=== PATIENT | male | born 1950 | race Caucasian/White ===

== ENCOUNTER 2016-06-28 13:40 | Inpatient (IN) | payer MEDICARE, OTHER ==
[2016-06-28] MEDS ORDERED: ALBUTEROL SULFATE/IPRATROPIUM 3 ML NEBU IH ONE ×2 (14:04→14:07)
[2016-06-28 14:05] LABS: Hematocrit 46.2 % (42.0-52.0); Hemoglobin 14.6 gm/dL (13.5-18.0); Mean Cell Volume 89.5 fl (78-100); Mean Corpuscular Hemoglobin 28.3 pg (27-31); Mean Corpuscular Hgb Conc 31.6 g/dl (32-36); Mean Platelet Volume 10.3 fl (6.0-9.5); Neutrophil % 68.6 % (42-75.0); Platelet Count 251 K/mm3 (150-450); Red Blood Count 5.16 M/mm3 (4.7-6.0); Red Cell Distribution Width 14.7 % (11.5-14.0); White Blood Count 11.6 K/mm3 (4.0-10.5)
--- OUTSIDE RECORDS SUMMARY | 2016-06-28 14:13 | XMS REPORT | Continuity of Care Document ---
:1950 Author Organization [facility] ([facility]) Address [address] [place] [address] Phone [phone] Care Team Providers Name Role Lisa Vazquez Primary Care Provider [phone] Source Comments This disclosure is being made pursuant to the Care Everywhere program, applicable federal and state laws, and may not contain all informaitonavailable regarding this patient.[facility] ([facility]) Active Allergies and Adverse Reactions Allergen Noted Date Severity Reactions Comments Aspirin 11/04/2012 Urticaria (Hives) Prednisone 07/15/2015 Mental status changes Patient reports he "gets mean " when taking tapered dose. Current Medications Prescription Sig. Disp. Refills Start Date End Date Status ALPRAZolam 0.25 mg Take 0.25 mg by Active tablet mouth 3 times daily as needed . ranitidine 150 mg Take 150 mg by Active tablet mouth daily . albuterol 90 Use 2 Puffs by Active mcg/Actuation inhaler inhalation every 4 hours as needed. fexofenadine 180 mg Take 180 mg by Active tablet mouth daily. clopidogrel 75 mg Take 75 mg by Active tablet mouth daily. losartan 100 mg Take 100 mg by Active tablet mouth daily. carvedilol 25 mg Take 25 mg by Active tablet mouth 2 times daily . budesonide 0.5 mg/2 Use 0.5 mg by Active mL nebulizer inhalation 2 times suspension daily. arformoterol Use 15 mcg by Active (BROVANA) 15 mcg/2 mL inhalation 2 times inhalation solution daily. calcium carbonate Take 1,000 mg by Active (500 mg Ca) 1250 mg mouth daily. tablet docusate 100 mg Take 1 capsule 60 capsule 0 07/24/2015 Active capsule (100 mg total) by mouth 2 times daily. polyethylene glycol Take 17 g by mouth 30 Each 0 07/24/2015 Active 3350 17 gram packet daily. 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 Acute pain 11/08/2012 Hematoma 11/08/2012 Lower limb ischemia 11/05/2012 Leg pain 11/04/2012 Resolved Problems Problem Noted Date Resolved Date PAMELA (acute kidney injury) 07/24/2015 07/24/2015 Immunizations Name Dates Previously Given Next Due Pneumococcal Polysaccharide, PPSV23 (Pneumovax 23) 11/08/2012 Social History Tobacco Use Types Packs/Day Years Used Date Former Smoker Cigarettes 2 35 Quit: 08/03/2009 Alcohol Use Drinks/Week oz/Week Comments No Last Filed Vital Signs Vital Sign Reading Time Taken Blood Pressure 155/81 07/24/2015 8:00 AM CDT Pulse 72 07/24/2015 8:00 AM CDT Temperature 35.2 C (95.4 F) 07/24/2015 8:00 AM CDT Respiratory Rate 20 07/24/2015 8:00 AM CDT Height 1.676 m (5' 5.98") 07/15/2015 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 Weight 117.935 kg (260 lb) 07/15/2015 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 Body Mass Index 41.99 07/15/2015 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 Oxygen Saturation 95% 07/24/2015 12:00 PM CDT Plan of Care Date Type Specialty Providers Description 08/27/2016 Wait List Med GI/Hepatology 08/27/2016 Appointment Med GI/Hepatology Josseline Meza MD Chief Comp: Patient [address] [place] [address] Visit [phone] (Fax) Health Maintenance Due Date Last Done Comments HCV Screening 1950 Hepatitis B Vaccine (1 of 3 - Primary Series) 1950 Tdap Vaccine 1962 Lipid Disorder Screening 1969 Td Vaccine 1969 Prostate Cancer Screening 2001 Zoster Vaccine 2011 Influenza Vaccine: Seasonal (#1) 12/10/2015 Pneumococcal Vaccine (1 of 2 - PCV13) 2016 11/08/2012 Colonoscopy 08/13/2025 08/14/2015 Results from Last 3 Months Not on file
--- OUTSIDE RECORDS SUMMARY | 2016-06-28 14:13 | XMS REPORT | CCD ---
:1950 Author Name HENRRY CAMPOS Address [address] [facility] Unavailable [place], [place] [id number] Care Team Providers Name Role Phone BALTAZAR ANN Attending Physician Unavailable Vital Signs Unknown or Not Available. Allergies Unknown or Not Available. Procedures Unknown or Not Available. History of Immunizations Unknown or Not Available. Problems Unknown or Not Available. Results Unknown or Not Available. Active Medications Unknown or Not Available. Medications Administered During Visit Unknown or Not Available. Encounters Encounter Diagnosis Diagnosis Code Start Date Unspecified abdominal pain R109 07/15/2015 Social History Smoking Status Code Start Date End Date Unknown if ever smoked [id number] Patient Decision Aids Unknown or Not Available. Discharge Instructions You were admitted to [facility] on 07/15/2015 03:39 with a principal diagnosis of Unspecified abdominal pain You were discharged from [facility] on 07/15/2015 03:39 Should you have any questions prior to discharge, please contact a member of your healthcare team. If you have left the hospital and have any questions, please contact your primary care physician. Chief Complaint and Reason For Visit Unknown or Not Available. Function Status Unknown or Not Available. Plan of Care Unknown or Not Available. Referral/Transition of Care Unknown or Not Available.
[2016-06-28 14:17] LABS: Albumin * 3.4 gm/dl (3.4-5.0); Anion Gap 10.7 mmol/L (6.8-13.8); BUN/Creatinine Ratio 15.3 (9.0-21.6); Bilirubin, Total 0.2 mg/dL (0.0-1.1); Ca. Corrected For Albumin 9.1 mg/dL (8.4-10.2); Calcium * 8.9 mg/dL (7.9-10.9); Carbon Dioxide 30.6 mmol/L (24-32.6); Potassium 4.3 mmol/L (3.4-4.6); Total Protein 6.8 gm/dL (6.2-8.2)
[2016-06-28] MEDS ORDERED: METHYLPREDNISOLONE SOD SUCC/PF 40 MG/ML VIAL IM ONE (14:29)
[2016-06-28] MEDS ORDERED: METHYLPREDNISOLONE SOD SUCC/PF 125 MG/2 ML VIAL ONE (14:32)
--- NOTE | 2016-06-28 15:53 | ERNOTE ---
Dyspnea - Date Date of Service: 06/28/16 - General Presenting Symptoms: shortness of breath, difficulty of breathing Time Seen by Provider: 06/28/16 13:58 Source: patient Exam Limitations: no limitations - Immun/Allergies/Home Medications Immunizations: IMMUNIZATION HX Immunizations Up to Date Yes History of Influenza Vaccine Yes Hx Pneumococcal Vaccination Yes Allergies/Adverse Reactions: Allergies aspirin Allergy (Mild, Verified 06/28/16 13:48) Hives Home Medications: HOME MEDICATIONS Albuterol Sulfate/Ipratropium [Duoneb 2.5-0.5MG/3ML Soln] 3 ml IH QID 07/05/15 [ Last Taken Unknown] Arformoterol Tartrate [Brovana] 15 mcg IH BID 07/05/15 [Last Taken Unknown] Budesonide [Pulmicort Respules] 0.5 mg IH BID 07/05/15 [Last Taken Unknown] Carvedilol [Coreg] 25 mg PO BID 07/05/15 [Last Taken Unknown] Clopidogrel Bisulfate [Plavix] 75 mg PO DAILY 07/05/15 [Last Taken Unknown] Losartan Potassium [Cozaar] 100 mg PO DAILY 07/05/15 [Last Taken Unknown] Ranitidine HCl [Zantac] 150 mg PO BID 07/05/15 [Last Taken Unknown] ALPRAZolam [Xanax] 0.25 mg PO BID PRN 04/04/16 [Last Taken Unknown] Montelukast Sodium [Singulair] 10 mg PO DAILY 04/04/16 [Last Taken Unknown] - Pain Score Pain Score #1 Pain Score: 0 - History of Present Illness Narrative: Patient is a 66 year old male with known history of COPD who wears continuous oxygen at night only who presents to the ED with complaints of worsening cough and inability to "get breathing under control with use of oxygen and nebulizers after my coughing fit". Patient denies fever, chills, body aches or change in sputum amount or characteristics yet states has increased cough. States that he came to ED because his coughing fits causes great dyspnea and normally he can control the dyspnea with oxygen and nebulizers but today cannot. Date (Duration): 06/28/16 Severity: moderate Treatment DIRECTOR INTEGRATED: by patient, oxygen, albuterol Initiating event: Reports: other - coughing spells Frequency of episodes: Reports: chronic episodes Modifying Factors - (Improves): Reports: albuterol, oxygen Modifying Factors (Worsens): Reports: coughing Associated Symptoms-Dyspnea: Reports: cough, dizziness. Denies: fever/chills, sweating, chest pain/discomfort, palpitations, wheezing Review of Systems - Review of Systems Constitutional: Absent: recent illness, fever, chills, diaphoresis, weakness, fatigue, malaise, weight loss EYE: Absent: eye pain, eye discharge, blurred vision, double vision, vision changes ENT: Absent: ear pain, ear discharge, pulling on ears, nose pain, nose congestion, nasal drainage, sore throat, throat swelling Respiratory: Present: shortness of breath, cough. Absent: wheezing, stridor Cardiology: Absent: chest pain, palpitations, syncope Gastrointestinal/Abdominal: Absent: nausea, vomiting, diarrhea, constipation, abdominal pain Genitourinary: Present: no symptoms reported Musculoskeletal: Present: no symptoms reported Skin: Present: no symptoms reported. Absent: rash, dryness Neurological: Absent: anxiety, depressed Endocrine: Present: no symptoms reported Hematologic/Lymphatic: Present: no symptoms reported Psych: Present: no symptoms reported - Patient's Past Medical History Patient History - Medical: Anxiety, Arthritis, Chronic Pain, GERD, Headache, Osteoporosis Patient History - Cardiac/Respiratory: Asthma, COPD, Hypertension, Hyperlipidemia Patient History - Cancer: No Hx of Cancer Patient History - Surgical Procedures: Appendectomy, Colonoscopy Patient History - Other: None - Family History Mother Family History - Medical: No pertinent hx Family History - Cardiac/Respiratory: No pertinent hx Father Family History - Medical: , Alzheimer's Disease Family History - Cardiac/Respiratory: No pertinent hx - Social History Living Situations: spouse Abuse History: No History of abuse Psych History: Hx of Anxiety Does anyone smoke in the home?: Yes Alcohol Use: none Drug Use: none - Immunizations Immunizations Up to Date: Yes Hx Pneumococcal Vaccination: Yes History of Influenza Vaccine: Yes Physical Exam - Physical Exam General Appearance: Present: wd/wn, alert, mild distress, obese. Absent: anxious, lethargic Eye Exam: Normal inspection: bilateral, PERRL: bilateral Ears, Nose, Throat: Present: normal ENT inspection, hearing grossly normal, normal pharynx. Absent: pharyngeal erythema, pharyngeal swelling, tonsillar exudate, tonsillar swelling, dry mucous membranes Neck: Present: normal inspection, nontender, supple, full range of motion Respiratory: Present: no accessory muscle use, accessory muscle use, decreased breath sounds. Absent: crackles, rales, rhonchi, stridor, wheezing Cardiovascular/Chest: Present: regular rate, rhythm, no murmur, normal peripheral pulses Peripheral Pulses: N=norm/S=strong/W=weak/B=bound/A=absent: Radial (R): Normal, Radial (L): Normal Gastrointestinal/Abdominal: Present: normal bowel sounds, nontender, nondistended, soft Rectal Exam: Present: deferred Male Genitals Exam: Present: deferred Back Exam: Present: normal inspection, normal range of motion, no CVA tenderness , no vertebral tenderness Extremity Exam: Present: normal inspection, non-tender, no edema, normal range of motion Neurological Exam: Present: alert, oriented, normal mood/affect, no motor/ sensory deficits Skin Exam: Present: normal color, warm/dry Lymphatic Exam: Present: no adenopathy ED Progress - Results and Orders Patient's Lab Results:: I have reviewed the patient's lab results. - Vital Signs Patient's Vital Signs:: I have reviewed the patient's vital signs. Vital Signs: Vital Signs 06/28/16 06/28/16 06/28/16 13:45 14:08 14:41 Temperature 36.6 C Pulse Rate 97 98 96 Respiratory 14 24 H Rate O2 Sat by Pulse 95 92 95 Oximetry 06/28/16 15:40 Temperature Pulse Rate 99 Respiratory 20 Rate O2 Sat by Pulse 96 Oximetry - X-Ray X-Ray #1 X-Ray: chest Interpretation: Reviewed by me X-ray Comments: No acute findings, hyperinflated lungs, enlarged heart with flat diaphragm - Progress/Reassessment Chief Complaint: Dyspnea Progress:: Improved Progress Note-Subjective: 06/28/16 16:54 RN Apoorva attempted to ambulate patient off oxygen. Per RN, patient was able to walk approximately 20 feet with worsening dyspnea and tachypnea. Respirations increased to 40-45/min and saturations 89-90%. Dr Live contacted and case discussed with him. Agreed to accept admission approximately 1630. Departure Clinical Impression: COPD exacerbation, Acute exacerbation of chronic obstructive pulmonary disease (COPD) - Departure Disposition: [facility] Condition: Stable
[2016-06-28] MEDS ORDERED: LEVOFLOXACIN/D5W 750 MG/150 ML BAG IV SCH (16:15)
[2016-06-28] MEDS ORDERED: ALBUTEROL SULFATE 2.5 MG/0.5 ML VIAL.NEB IH ONE ×2 (16:15→16:42)
[2016-06-28] MEDS ORDERED: AZITHROMYCIN 250 MG TABLET ONE (16:45)
--- OUTSIDE RECORDS SUMMARY | 2016-06-28 16:58 | XMS REPORT | Continuity of Care Document ---
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
[2016-06-28] MEDS ORDERED: ALBUTEROL SULFATE/IPRATROPIUM 3 ML NEBU IH SCH (17:00)
[2016-06-28] MEDS ORDERED: ACETAMINOPHEN 325 MG TABLET PO PRN (17:01)
[2016-06-28] MEDS ORDERED: AZITHROMYCIN 500 MG in DEXTROSE 5 % IN WATER 250 ML IV ONE ×2 (17:30)
[2016-06-28 17:50] LABS: CKMB 5.9 ng/mL (0.0-9.0)
[2016-06-28 17:59] LABS: Troponin I 0.021 ng/ml (0.00-0.10)
--- NOTE | 2016-06-28 18:04 | HP ---
Chief Complaint - Chief Complaint Date of Service: 06/28/16 Time of Service: 18:02 Chief Complaint: SOB, PANDYA, productive cough. 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 He was actually seen at [facility] ER and was "borderline" for admission, received steroid shot there and sent home to do nebs at home, but continued to worsen so came to our ER as he lives in town here. He denies any significant chest pressure, but does describe substernal chest pressure and a very productive cough, that makes his chest hurt when he coughs. He complains of a bad, migraine like, [place] when he coughs, but denies fevers or chills, sore throat or other upper respiratory sx. He has chronic LE edema, no recent changes and no complaint of leg pain. In the ER he was noted to be tachypneic, very PANDYA and unable to finish a sentence, using accessory muscles to breath. Ambulatory O2 dropped to 89% and unable to walk more than a few feet before gasping for air. At rest he was ok, but still unable to finish a sentence. He does wear O2 at night 1-2LNC, but not during the day. He has been tested for HEBER and told he doesn't have it. - Patient's Past Medical History Patient History - Medical: Anxiety, Arthritis, Chronic Pain, GERD, Headache, Osteoporosis Patient History - Cardiac/Respiratory: Asthma, COPD, Hypertension, Hyperlipidemia Patient History - Cancer: No Hx of Cancer Patient History - Surgical Procedures: Appendectomy, Colonoscopy Patient History - Other: None - Family History Mother Family History - Medical: No pertinent hx Family History - Cardiac/Respiratory: No pertinent hx Father Family History - Medical: , Alzheimer's Disease Family History - Cardiac/Respiratory: No pertinent hx - Social History Living Situations: spouse Abuse History: No History of abuse Psych History: Hx of Anxiety Does anyone smoke in the home?: Yes Smoking Status: Former smoker Have you smoked in the past 12 months: No Do you dip or chew tobacco: No Smoking Start Date: 05/11/64 Smoking Stop Date: 05/11/10 Patient requests Smoking Cessation Consult: No Alcohol Use: none Drug Use: none - Immunizations Immunizations Up to Date: Yes Hx Pneumococcal Vaccination: Yes History of Influenza Vaccine: Yes Review Of Systems (GEN) - Review of Systems Generalized/Overall Review: Present: Weakness, Malaise, Fatigue. Absent: Chills , Fever EENTM: Present: No Symptoms Reported Respiratory: Present: Cough, Shortness of Breath, Wheezing. Absent: Orthopnea Cardiac: Present: Chest Pain, Edema - chronic, no recent changes.. Absent: Palpitations Abdominal: Present: No Symptoms Reported Genitourinary: Present: No Symptoms Reported Musculoskeletal: Present: No Symptoms Reported Neurological: Present: No Symptoms Reported Skin: Present: No Symptoms Reported Endocrine: Present: No Symptoms Reported Immunizations: IMMUNIZATION HX Immunizations Up to Date Yes History of Influenza Vaccine Yes Hx Pneumococcal Vaccination Yes Allergies/Adverse Reactions: Allergies Allergy/AdvReac Type Severity Reaction Status Date / Time aspirin Allergy Mild Hives Verified 06/28/16 13:48 Home Medications: HOME MEDICATIONS Albuterol Sulfate/Ipratropium [Duoneb 2.5-0.5MG/3ML Soln] 3 ml IH QID 07/05/15 [ Last Taken Unknown] Arformoterol Tartrate [Brovana] 15 mcg IH BID 07/05/15 [Last Taken Unknown] Budesonide [Pulmicort Respules] 0.5 mg IH BID 07/05/15 [Last Taken Unknown] Carvedilol [Coreg] 25 mg PO BID 07/05/15 [Last Taken Unknown] Clopidogrel Bisulfate [Plavix] 75 mg PO DAILY 07/05/15 [Last Taken Unknown] Losartan Potassium [Cozaar] 100 mg PO DAILY 07/05/15 [Last Taken Unknown] Ranitidine HCl [Zantac] 150 mg PO BID 07/05/15 [Last Taken Unknown] ALPRAZolam [Xanax] 0.25 mg PO BID PRN 04/04/16 [Last Taken Unknown] Montelukast Sodium [Singulair] 10 mg PO DAILY 04/04/16 [Last Taken Unknown] Exam - Exam Vital Signs: Vital Signs - Last Taken Temp 36.6 C 06/28/16 13:45 Pulse 97 06/28/16 16:59 Resp 16 06/28/16 16:59 BP 191/102 06/28/16 16:59 Pulse Ox 96 06/28/16 16:59 Constitutional: Present: Alert, Oriented x3, Cooperative, Mild distress, Moderate distress, Other - unable to finish a sentence without a breath., Morbidly obese ENT Exam: Present: hearing grossly normal Eye Exam: bilateral eye: normal inspection, PERRL, EOMI Neck: Present: supple Respiratory: Present: accessory muscle use, wheezing, expiration (prolonged), other - very poor AE, E>>I, very end expiratory wheezes.. Absent: rales Cardiovascular/Chest: Present: no murmur, tachycardia Abdomen: Present: Normal bowel sounds, soft, nontender, obese /Rectal: Present: Exam deferred Extremity: Present: no calf tenderness, lower extremity edema - equal manda, no cords Skin Exam: Present: normal color Neurologic: Present: normal mood/affect, oriented x 3 Appearance: Present: appropriate appearance, appropriate insight, no memory impairment Eye contact: Present: cooperative, good eye contact Thoughts: Present: normal thought pattern, no apparent hallucination Diagnostic Studies: Laboratory Results WBC 11.6 K/mm3 (4.0-10.5) H 06/28/16 13:57 RBC 5.16 M/mm3 (4.7-6.0) 06/28/16 13:57 Hgb 14.6 gm/dL (13.5-18.0) 06/28/16 13:57 Hct 46.2 % (42.0-52.0) 06/28/16 13:57 MCV 89.5 fl (78-100) 06/28/16 13:57 MCH 28.3 pg (27-31) 06/28/16 13:57 MCHC 31.6 g/dl (32-36) L 06/28/16 13:57 RDW 14.7 % (11.5-14.0) H 06/28/16 13:57 Plt Count 251 K/mm3 (150-450) 06/28/16 13:57 MPV 10.3 fl (6.0-9.5) H 06/28/16 13:57 Immature Gran % (Auto) 0.80 % (0.001-0.429) H 06/28/16 13:57 Immature Gran # (Auto) 0.09 K/mm3 (0.000-0.0310) H 06/28/16 13:57 Neutrophils % 68.6 % (42-75.0) 06/28/16 13:57 Lymphocytes % 18.4 % (20-51) L 06/28/16 13:57 Monocytes % 9.8 % (0.0-9) H 06/28/16 13:57 Eosinophils % 2.0 % (0.0-3.0) 06/28/16 13:57 Basophils % 0.4 % (0.0-1.0) 06/28/16 13:57 Nucleated RBC % 0.0 k/mm3 (0-1) 06/28/16 13:57 Neutrophils # 8.0 K/mm3 (1.3-6.0) H 06/28/16 13:57 Lymphocytes # 2.1 k/mm3 (1.5-3.5) 06/28/16 13:57 Monocytes # 1.1 k/mm3 (0.0-1.0) H 06/28/16 13:57 Eosinophils # 0.2 k/mm3 (0.0-0.7) 06/28/16 13:57 Absolute Basophils 0.1 k/mm3 (0.0-0.1) 06/28/16 13:57 pCO2 40.6 mmHg (35.0-48.0) 06/28/16 15:06 pO2 34.9 mmHg (83.0-108.0) L* 06/28/16 15:06 HCO3 23.2 mmol/L (21.0-28.0) 06/28/16 15:06 Total CO2 24.4 mmol/L (19.0-24.0) H 06/28/16 15:06 Base Excess -1.9 mmol/L (-2.0-3.0) 06/28/16 15:06 ABG pH 7.37 (7.35-7.45) 06/28/16 15:06 ABG O2 Sat (Measured) 65.6 % (94.0-98.0) L 06/28/16 15:06 Sodium 141 mmol/L (132-142) 06/28/16 13:57 Plasma Sodium 141 mmol/L (130-142) 06/28/16 13:57 Potassium 4.3 mmol/L (3.4-4.6) 06/28/16 13:57 Chloride 104 mmol/L (97-106) 06/28/16 13:57 Carbon Dioxide 30.6 mmol/L (24-32.6) 06/28/16 13:57 Anion Gap 10.7 mmol/L (6.8-13.8) 06/28/16 13:57 BUN 17 mg/dL (6-23) 06/28/16 13:57 Creatinine 1.11 mg/dL (0.4-1.4) 06/28/16 13:57 Est GFR (Non-Af Amer) 71 mL/min (60-130) 06/28/16 13:57 BUN/Creatinine Ratio 15.3 (9.0-21.6) 06/28/16 13:57 Random Glucose 88 mg/dL (70-110) 06/28/16 13:57 Lactic Acid, Venous 0.9 mmol/L (0.4-2.0) 06/28/16 13:57 Calcium 8.9 mg/dL (7.9-10.9) 06/28/16 13:57 Calcium Adj for Albumin 9.1 mg/dL (8.4-10.2) 06/28/16 13:57 Total Bilirubin 0.2 mg/dL (0.0-1.1) 06/28/16 13:57 AST 19 U/L (0-48) 06/28/16 13:57 ALT 35 U/L (19-67) 06/28/16 13:57 Alkaline Phosphatase 40 U/L (50-170) L 06/28/16 13:57 Creatine Kinase 362 U/L (0-259) H 06/28/16 16:30 CK-MB (CK-2) 5.9 ng/mL (0.0-9.0) 06/28/16 16:30 CK-MB (CK-2) Rel Index 1.6 (0.0-3.6) 06/28/16 16:30 Troponin I 0.021 ng/ml (0.00-0.10) 06/28/16 16:30 Total Protein 6.8 gm/dL (6.2-8.2) 06/28/16 13:57 Albumin 3.4 gm/dl (3.4-5.0) 06/28/16 13:57 Assessment/Plan - Assessment/Plan (1) Hypertension Assessment: BP is very high. could be because he has not slept well for several nights per him, but it is also possible the SOB and elevated BP could be from AMI so will check cardiac panel and EKG. EKG shows some lateral ST depressions, but this could be cardiac strain from the COPD exacerbation. If cardiac panel is normal will repeat in 6 hrs just to be sure it remains ok. Problem: Acute Qualifiers: Hypertension type: essential hypertension Qualified Code(s): I10 - Essential (primary) hypertension (2) Respiratory failure Assessment: acute, though mainly with activity as his sats at rest are in the mid 90's, but if he ambulates he drops to 89% and is very PANDYA. Will continue his nightime O2 and just monitor how he does with ambulation. Blood gas shows extremely low O2 at 65% while on 2 liters, but doubt this number is good given what his present pulse ox shows. Problem: Acute (3) Acute exacerbation of chronic obstructive pulmonary disease (COPD) Assessment: will do scheduled nebs, IV steroids, zithromax and rocephin, changing to cefdinir and a prednisone taper at time of discharge. Problem: Acute (4) Discharge planning issues Assessment: It is possible that patient may be able to go home sometime tomorrow, depending on how he responds to IV steroids and abx. Problem: Acute
[2016-06-28] MEDS: ENOXAPARIN SODIUM 40 MG/0.4 ML SYRG SC SCH (18:17)
[2016-06-28] MEDS: PANTOPRAZOLE SODIUM 40 MG TABLET.EC PO SCH (18:17)
[2016-06-28] MEDS: ALPRAZolam 0.25 MG TABLET PO PRN (19:01)
[2016-06-28] MEDS: ALBUTEROL SULFATE/IPRATROPIUM 3 ML NEBU IH SCH ×2 (19:45→21:13)
[2016-06-28] MEDS: BUDESONIDE 0.5 MG/2 ML VIAL.NEB IH SCH ×2 (19:46→21:13)
[2016-06-28] MEDS ORDERED: NON-FORMULARY 1 DOSE DOSE (Arformoterol Tartrate [Brovana] 15 MCG) IH SCH (21:00)
[2016-06-28] MEDS ORDERED: RANITIDINE HCL 150 MG PO SCH (21:00)
[2016-06-28] MEDS ORDERED: BUDESONIDE 0.5 MG/2 ML VIAL.NEB IH SCH (21:00)
[2016-06-28] MEDS: FAMOTIDINE 20 MG TABLET PO SCH (21:08)
[2016-06-28] MEDS: CARVEDILOL 25 MG TABLET PO SCH (21:08)
[2016-06-28] MEDS: METHYLPREDNISOLONE SOD SUCC 80 MG in WATER FOR INJ.,BACTERIOSTATIC 0 ML IV SCH (21:22)
[2016-06-28] MEDS: ALBUTEROL SULFATE 2.5 MG/0.5 ML VIAL.NEB IH PRN (23:56)
[2016-06-29] MEDS: ALPRAZolam 0.25 MG TABLET PO PRN ×3 (00:12→16:41)
[2016-06-29] MEDS: FORMOTEROL FUMARATE 20 MCG/2 ML VIAL IH SCH ×3 (00:59→18:12)
[2016-06-29] MEDS: ALBUTEROL SULFATE 2.5 MG/0.5 ML VIAL.NEB IH PRN ×2 (03:22→03:47)
[2016-06-29] MEDS ORDERED: guaiFENesin 100 MG/5 ML BTL PO PRN (03:24)
[2016-06-29] MEDS ORDERED: ACETYLCYSTEINE 100 MG/ML VIAL ONE (03:44)
[2016-06-29] MEDS: ACETYLCYSTEINE 100 MG/ML VIAL IH SCH ×4 (03:46→18:12)
[2016-06-29] MEDS: MORPHINE SULFATE 2 MG/ML DISP.SYRIN IV PRN (04:12)
[2016-06-29] MEDS: METHYLPREDNISOLONE SOD SUCC 80 MG in WATER FOR INJ.,BACTERIOSTATIC 0 ML IV SCH (05:44)
[2016-06-29] MEDS: CLOPIDOGREL BISULFATE 75 MG TABLET PO SCH (08:13)
[2016-06-29] MEDS: MONTELUKAST SODIUM 10 MG TABLET PO SCH (08:14)
[2016-06-29] MEDS: PANTOPRAZOLE SODIUM 40 MG TABLET.EC PO SCH (08:14)
[2016-06-29] MEDS: CARVEDILOL 25 MG TABLET PO SCH ×2 (08:14→21:31)
[2016-06-29] MEDS: FAMOTIDINE 20 MG TABLET PO SCH ×2 (08:14→21:31)
[2016-06-29] MEDS: AZITHROMYCIN 250 MG TABLET PO SCH (08:15)
[2016-06-29] MEDS: LOSARTAN POTASSIUM 50 MG TABLET PO SCH (08:15)
[2016-06-29] MEDS: ALBUTEROL SULFATE/IPRATROPIUM 3 ML NEBU IH SCH ×4 (08:46→18:10)
[2016-06-29] MEDS ORDERED: NON-FORMULARY 1 DOSE DOSE (Losartan Potassium [Cozaar] 100 MG) PO SCH (09:00)
--- NOTE | 2016-06-29 09:10 | PN ---
Subjective - Date and Time Seen Date: 06/29/16 Time: 09:01 Subjective Narrative: Pt. complaining of increased SOB this am. He states that after he received IV steroid last night he felt his hands cramp up and again this am feels more SOB and anxious after dose. He denies leg or calf pain or chest pain, but does complain of it being harder to breath. Objective - Review of Systems Generalized/Overall Review: Reports: Weakness, Fatigue. Denies: Chills, Fever EENTM: Reports: No Symptoms Reported Respiratory: Reports: Cough, Shortness of Breath, Wheezing Cardiac: Denies: Chest Pain, Palpitations Abdominal: Denies: Nausea, Vomiting Genitourinary Symptoms: Reports: No Symptoms Reported Musculoskeletal Complaints: Reports: No Symptoms Reported Neurological: Reports: No Symptoms Reported Skin: Reports: No Symptoms Reported Endocrine: Reports: No Symptoms Reported - Vitals Vitals: Last Vital Signs Temp 36.4 C L 06/29/16 06:38 Pulse 104 H 06/29/16 08:46 Resp 28 H 06/29/16 08:46 BP 143/103 06/29/16 08:15 Pulse Ox 97 06/29/16 08:46 - Exam Constitutional: Present: Alert, Oriented x3, Cooperative, Moderate distress, Obese ENT Exam: Present: hearing grossly normal Neck: Present: supple Respiratory: Present: respiratory distress, accessory muscle use, rales - right base., rhonchi, wheezing, other - very breathless and hoarse. unable to finish a few words without a breath. On O2 this am and hard to maintain sats in the low 90's on 1LNC. very anxious. Cardiovascular/Chest: Present: regular rate, rhythm, systolic murmur Abdomen: Present: Normal bowel sounds, soft, nontender Extremity: Present: no calf tenderness, pedal edema Skin Exam: Present: normal color Neurologic: Present: normal mood/affect, oriented x 3 Appearance: Present: appropriate appearance, appropriate insight, neat Eye contact: Present: cooperative, good eye contact, normal speech Thoughts: Present: normal thought pattern, no apparent hallucination Assessment/Plan - Problems/Diagnosis (1) Hypertension Problem: Acute Qualifiers: Hypertension type: essential hypertension Qualified Code(s): I10 - Essential (primary) hypertension Narrative: stable, no changes (2) Respiratory failure Problem: Acute Narrative: back on O2 this am. could be developing pneumonia given the rales in the right base vs. worsening COPD. continue O2 as needed. tx copd. (3) Acute exacerbation of chronic obstructive pulmonary disease (COPD) Problem: Acute Narrative: appears to be worse this am despite tx. could be reaction to the solumedrol so will change to dexamethasone. continue scheduled duoneb, prn albuterol and continue mucomyst and abx. (4) Discharge planning issues Problem: Acute Narrative: pt. is definitely not ready for discharge this am, showing signs of worsening and in a great deal of respiratory distress.
[2016-06-29] MEDS: BUDESONIDE 0.5 MG/2 ML VIAL.NEB IH SCH ×2 (09:21→18:11)
[2016-06-29] MEDS: DEXAMETHASONE 4 MG TABLET PO SCH ×2 (10:32→21:30)
[2016-06-29] MEDS: ENOXAPARIN SODIUM 40 MG/0.4 ML SYRG SC SCH (17:24)
[2016-06-30] MEDS: ALBUTEROL SULFATE 2.5 MG/0.5 ML VIAL.NEB IH PRN ×2 (00:03→04:04)
[2016-06-30] MEDS: ACETYLCYSTEINE 100 MG/ML VIAL IH SCH ×4 (00:03→18:18)
[2016-06-30] MEDS: ALPRAZolam 0.25 MG TABLET PO PRN ×3 (00:19→19:24)
[2016-06-30] MEDS: MORPHINE SULFATE 2 MG/ML DISP.SYRIN IV PRN ×2 (04:00→20:32)
[2016-06-30] MEDS: BUDESONIDE 0.5 MG/2 ML VIAL.NEB IH SCH ×3 (06:04→18:16)
[2016-06-30] MEDS: ALBUTEROL SULFATE/IPRATROPIUM 3 ML NEBU IH SCH ×4 (06:05→18:13)
[2016-06-30] MEDS: FORMOTEROL FUMARATE 20 MCG/2 ML VIAL IH SCH ×3 (06:05→18:14)
--- NOTE | 2016-06-30 06:34 | PN ---
Progess Note - Interim Narrative: 06/30/16 06:31 Pt. feels very SOB this am, usually requires 1LNC at night to breath but needed 2 liters last night. He was off O2 and 96% last pm. He is quite anxious this am and not sure if he should go home or not yet. He states the decadron did not give him the SE the solumedrol did. PE: He is quite anxious this am, with mild respiratory distress. He has fair AE manda, still with EEW and E>I and using some accessory muscles to breath. A/P: COPD exacerbation: better but not sure if ready to go home or not. Will reassess during the day and decide later today whether to d/c or not.
[2016-06-30] MEDS: DEXAMETHASONE 4 MG TABLET PO SCH ×2 (08:42→20:41)
[2016-06-30] MEDS: LOSARTAN POTASSIUM 50 MG TABLET PO SCH (08:42)
[2016-06-30] MEDS: CARVEDILOL 25 MG TABLET PO SCH ×2 (08:42→20:40)
[2016-06-30] MEDS: CLOPIDOGREL BISULFATE 75 MG TABLET PO SCH (08:43)
[2016-06-30] MEDS: FAMOTIDINE 20 MG TABLET PO SCH ×2 (08:43→20:41)
[2016-06-30] MEDS: AZITHROMYCIN 250 MG TABLET PO SCH (08:43)
[2016-06-30] MEDS: MONTELUKAST SODIUM 10 MG TABLET PO SCH (08:43)
[2016-06-30] MEDS: PANTOPRAZOLE SODIUM 40 MG TABLET.EC PO SCH (08:43)
[2016-06-30] MEDS: ENOXAPARIN SODIUM 40 MG/0.4 ML SYRG SC SCH (17:08)
--- NOTE | 2016-06-30 19:33 | PN ---
Subjective - Date and Time Seen Date: 06/30/16 Time: 19:23 Subjective Narrative: Pt. continues to have SOB/PANDYA, feeling better, but doesn't feel like he can safely go home. He did walk 250ft. today but states was very PANDYA. Objective - Review of Systems Generalized/Overall Review: Reports: Weakness, Malaise. Denies: Chills, Fever EENTM: Reports: No Symptoms Reported Respiratory: Reports: Shortness of Breath, Wheezing, Other - PANDYA Cardiac: Reports: Chest Pain Abdominal: Reports: No Symptoms Reported Genitourinary Symptoms: Reports: No Symptoms Reported Musculoskeletal Complaints: Reports: No Symptoms Reported Neurological: Reports: No Symptoms Reported Skin: Reports: No Symptoms Reported Endocrine: Reports: No Symptoms Reported - Vitals Vitals: Last Vital Signs Temp 36.7 C 06/30/16 18:59 Pulse 102 H 06/30/16 18:59 Resp 24 H 06/30/16 18:59 BP 196/83 06/30/16 18:59 Pulse Ox 92 06/30/16 18:59 - Exam Constitutional: Present: Alert, Oriented x3, Cooperative, Mild distress, Moderate distress ENT Exam: Present: hearing grossly normal Neck: Present: supple Respiratory: Present: respiratory distress, accessory muscle use, rhonchi, wheezing, expiration (prolonged) Cardiovascular/Chest: Present: regular rate, rhythm, no murmur Abdomen: Present: Normal bowel sounds, soft, nontender, nondistended, no rebound tenderness, no hepatospenomegaly, no masses, obese Extremity: Present: no calf tenderness Skin Exam: Present: normal color Neurologic: Present: normal mood/affect, oriented x 3 Appearance: Present: appropriate appearance, appropriate insight Eye contact: Present: cooperative, good eye contact, other - cannot finish a sentence without taking a breath Thoughts: Present: normal thought pattern, no apparent hallucination Assessment/Plan - Problems/Diagnosis (1) Hypertension Problem: Acute Qualifiers: Hypertension type: essential hypertension Qualified Code(s): I10 - Essential (primary) hypertension Narrative: stable (2) Respiratory failure Problem: Acute Narrative: off O2 during the day, but still respiratory distress with ambulation. (3) Acute exacerbation of chronic obstructive pulmonary disease (COPD) Problem: Acute Narrative: Still very poor AE, E>>I and breathlessness, patient definitely is not ready to go home yet. Will continue current tx. (4) Discharge planning issues Problem: Acute Narrative: Hopefully able to go home tomorrow, but definitely unable to go home today.
[2016-07-01] MEDS: ACETYLCYSTEINE 100 MG/ML VIAL IH SCH ×2 (00:47→06:06)
[2016-07-01] MEDS: ALBUTEROL SULFATE 2.5 MG/0.5 ML VIAL.NEB IH PRN (04:28)
[2016-07-01] MEDS: BUDESONIDE 0.5 MG/2 ML VIAL.NEB IH SCH (06:07)
[2016-07-01] MEDS: FORMOTEROL FUMARATE 20 MCG/2 ML VIAL IH SCH (06:07)
[2016-07-01] MEDS: ALBUTEROL SULFATE/IPRATROPIUM 3 ML NEBU IH SCH ×2 (06:07→11:16)
--- NOTE | 2016-07-01 07:40 | PN ---
Progess Note - Interim Narrative: 07/01/16 07:09 Looking a little better this am. Still very hoarse and some mild respiratory distress, but better AE manda. Will do a trial with revatio and look to discharge later today.
[2016-07-01] MEDS: CARVEDILOL 25 MG TABLET PO SCH (08:58)
[2016-07-01] MEDS: FAMOTIDINE 20 MG TABLET PO SCH (08:58)
[2016-07-01] MEDS: LOSARTAN POTASSIUM 50 MG TABLET PO SCH (08:59)
[2016-07-01] MEDS: CLOPIDOGREL BISULFATE 75 MG TABLET PO SCH (08:59)
[2016-07-01] MEDS: MONTELUKAST SODIUM 10 MG TABLET PO SCH (08:59)
[2016-07-01] MEDS: PANTOPRAZOLE SODIUM 40 MG TABLET.EC PO SCH (09:00)
[2016-07-01] MEDS: AZITHROMYCIN 250 MG TABLET PO SCH (09:00)
[2016-07-01] MEDS: DEXAMETHASONE 4 MG TABLET PO SCH (09:00)
[2016-07-01] MEDS ORDERED: SILDENAFIL CITRATE 20 MG TABLET PO SCH (09:00)
[2016-07-01 11:08] VITALS: BP 139/72
--- NOTE | 2016-07-01 12:01 | DS ---
(1) Hypertension Problem: Acute Qualifiers: Hypertension type: essential hypertension Qualified Code(s): I10 - Essential (primary) hypertension (2) Respiratory failure Problem: Acute (3) Acute exacerbation of chronic obstructive pulmonary disease (COPD) Problem: Acute (4) Discharge planning issues Problem: Acute Description of Stay: Pt. admitted for COPD exacerbation, respiratory distress/failure. He was placed on zithromax, rocephin and solumedrol with QID duoneb and prn albuterol. He was able to wean off the O2 rapidly, but required 2LNC hs when typically he uses 1LNC at home. He had a reaction to solumedrol and has had issues with prednisone in the past so was placed on decadron 8mg po Q8hrs and slowly improved over the next couple days. Because he was still with some mild SOB at rest and PANDYA, I began revatio which he seemed to tolerate so will continue him on this outpt. He will continue his home O2 hs, 1-2 LNC adjusting as tolerated and needed. Zithromax and cefdinir, along with decadron will be Rx'd. And an Rx for revatio will be given. He is to see PCP in 1 wk. Procedures Performed: none Discharge Disposition: Home self care Disposition: Home self-care Condition: Fair Discharge Activity: Activity as tolerated Discharge Diet: General/regular food Consultation Done:: f/u with PCP in 1 wk. Prescriptions (Any new or edited meds): Azithromycin [Zithromax] 250 mg PO DAILY #2 tablet Cefdinir [Omnicef] 300 mg PO Q12H #16 cap Dexamethasone [Decadron] 8 mg PO Q12H #26 tablet Sildenafil Citrate [Revatio] 20 mg PO TID #90 tablet Complete Home Medications List: Complete Home Medication List: Albuterol Sulfate/Ipratropium [Duoneb 2.5-0.5MG/3ML Soln] 3 ml IH QID 07/05/15 Arformoterol Tartrate [Brovana] 15 mcg IH BID 07/05/15 Budesonide [Pulmicort Respules] 0.5 mg IH BID 07/05/15 Carvedilol [Coreg] 25 mg PO BID 07/05/15 Clopidogrel Bisulfate [Plavix] 75 mg PO DAILY 07/05/15 Losartan Potassium [Cozaar] 100 mg PO DAILY 07/05/15 Ranitidine HCl [Zantac] 150 mg PO BID 07/05/15 ALPRAZolam [Xanax] 0.25 mg PO BID PRN 04/04/16 Montelukast Sodium [Singulair] 10 mg PO DAILY 04/04/16 Acetaminophen [Tylenol] 650 mg PO QID PRN #0 tablet 07/01/16 Azithromycin [Zithromax] 250 mg PO DAILY #2 tablet 07/01/16 Cefdinir [Omnicef] 300 mg PO Q12H #16 cap 07/01/16 Dexamethasone [Decadron] 8 mg PO Q12H #26 tablet 07/01/16 Sildenafil Citrate [Revatio] 20 mg PO TID #90 tablet 07/01/16
== END 2016-07-01 12:45 | disposition home or self-care (01) | DRG 189 ==
LOC: ER 13:40 → MS 16:52
PROVIDERS: ADMIT Family Medicine; ATTEND Family Medicine
PROC: 4A033R1 Measurement of Arterial Saturation, Peripheral, Percutaneous Approach (ICD-10-PCS; principal; 2016-06-28)
DX: J96.00 Acute respiratory failure, unspecified whether with hypoxia or hypercapnia (principal); J44.1 Chronic obstructive pulmonary disease with (acute) exacerbation; I10 Essential (primary) hypertension; E78.5 Hyperlipidemia, unspecified; Z87.891 Personal history of nicotine dependence

== ENCOUNTER 2016-07-01 16:27 | Emergency (ER) | payer MEDICARE, OTHER ==
[2016-07-01] MEDS ORDERED: ALBUTEROL SULFATE 2.5 MG/0.5 ML VIAL.NEB IH ONE ×4 (16:31→19:38)
[2016-07-01] MEDS ORDERED: METHYLPREDNISOLONE SOD SUCC/PF 125 MG/2 ML VIAL IV ONE (16:31)
--- NOTE | 2016-07-01 16:33 | ERNOTE ---
Dyspnea - General Presenting Symptoms: shortness of breath Time Seen by Provider: 07/01/16 16:27 Source: patient, family Exam Limitations: no limitations - Immun/Allergies/Home Medications Immunizations: IMMUNIZATION HX Immunizations Up to Date Yes History of Influenza Vaccine Yes Hx Pneumococcal Vaccination Yes Allergies/Adverse Reactions: Allergies aspirin Allergy (Mild, Verified 06/28/16 13:48) Hives Home Medications: HOME MEDICATIONS Albuterol Sulfate/Ipratropium [Duoneb 2.5-0.5MG/3ML Soln] 3 ml IH QID 07/05/15 [ Last Taken Unknown] Arformoterol Tartrate [Brovana] 15 mcg IH BID 07/05/15 [Last Taken Unknown] Budesonide [Pulmicort Respules] 0.5 mg IH BID 07/05/15 [Last Taken Unknown] Carvedilol [Coreg] 25 mg PO BID 07/05/15 [Last Taken Unknown] Clopidogrel Bisulfate [Plavix] 75 mg PO DAILY 07/05/15 [Last Taken Unknown] Losartan Potassium [Cozaar] 100 mg PO DAILY 07/05/15 [Last Taken Unknown] Ranitidine HCl [Zantac] 150 mg PO BID 07/05/15 [Last Taken Unknown] ALPRAZolam [Xanax] 0.25 mg PO BID PRN 04/04/16 [Last Taken Unknown] Montelukast Sodium [Singulair] 10 mg PO DAILY 04/04/16 [Last Taken Unknown] Acetaminophen [Tylenol] 650 mg PO QID PRN #0 tablet 07/01/16 [Last Taken Unknown ] Azithromycin [Zithromax] 250 mg PO DAILY #2 tablet 07/01/16 [Last Taken Unknown] Cefdinir [Omnicef] 300 mg PO Q12H #16 cap 07/01/16 [Last Taken Unknown] Dexamethasone [Decadron] 8 mg PO Q12H #26 tablet 07/01/16 [Last Taken Unknown] Sildenafil Citrate [Revatio] 20 mg PO TID #90 tablet 07/01/16 [Last Taken Unknown] - History of Present Illness Narrative: PAtient was discharged at midday after admission for COPD exacerbation. He took a nap, woke up for a phone call and then walked to the bathroom without his oxygen. With that his monitor showed O2 saturation down to 79. When he put his oxygen back on he started to feel better and the number cam up to the 90's but then started to go down again. He got scared and more short of breath and called the ambulance who brought him here. Review of Systems - Review of Systems Constitutional: Present: recent illness. Absent: fever ENT: Absent: nose congestion, sore throat Respiratory: Present: See HPI, shortness of breath, cough Cardiology: Present: See HPI. Absent: chest pain Gastrointestinal/Abdominal: Absent: nausea, vomiting, diarrhea, abdominal pain Genitourinary: Present: no symptoms reported Neurological: Absent: headache, weakness, numbness - Patient's Past Medical History Patient History - Medical: Anxiety, Arthritis, Chronic Pain, GERD, Headache, Osteoporosis Patient History - Cardiac/Respiratory: Asthma, COPD, Hypertension, Hyperlipidemia Patient History - Cancer: No Hx of Cancer Patient History - Surgical Procedures: Appendectomy, Colonoscopy Patient History - Other: None - Family History Mother Family History - Medical: No pertinent hx Family History - Cardiac/Respiratory: No pertinent hx Father Family History - Medical: , Alzheimer's Disease Family History - Cardiac/Respiratory: No pertinent hx - Social History Living Situations: spouse Abuse History: No History of abuse Psych History: Hx of Anxiety Does anyone smoke in the home?: Yes Alcohol Use: none Drug Use: none - Immunizations Immunizations Up to Date: Yes Hx Pneumococcal Vaccination: Yes History of Influenza Vaccine: Yes Physical Exam - Physical Exam General Appearance: Present: wd/wn, alert, mild distress, anxious Ears, Nose, Throat: Present: pharyngeal erythema Respiratory: Present: no respiratory distress, no accessory muscle use, chest nontender, decreased breath sounds, expiration (prolonged) Cardiovascular/Chest: Present: regular rate, rhythm, no murmur Gastrointestinal/Abdominal: Present: nontender, nondistended, soft Extremity Exam: Present: no edema Neurological Exam: Present: alert, oriented, normal mood/affect Skin Exam: Present: normal color, warm/dry. Absent: skin rash ED Progress - Results and Orders Patient's Lab Results:: I have reviewed the patient's lab results. - Vital Signs Patient's Vital Signs:: I have reviewed the patient's vital signs. Vital Signs: Vital Signs 07/01/16 11:03 Temperature 37.0 C Blood Pressure 139/72 - X-Ray X-Ray #1 X-Ray: chest - no acute changes Interpretation: Interp. by me - Progress/Reassessment Progress Note-Subjective: 07/01/16 18:15 patient sleeping, but easily arousable discussed with patient and family, consider anxiety as cause of symptoms 07/01/16 19:25 patient calm, discussed test results Departure Clinical Impression: Acute exacerbation of chronic obstructive pulmonary disease (COPD), Anxiety - Departure Disposition: Home self-care Condition: Fair
[2016-07-01] MEDS ORDERED: METHYLPREDNISOLONE SOD SUCC/PF 125 MG/2 ML VIAL ONE (16:35)
[2016-07-01] MEDS ORDERED: ALBUTEROL SULFATE/IPRATROPIUM 3 ML NEBU IH ONE (16:35)
--- OUTSIDE RECORDS SUMMARY | 2016-07-01 16:38 | XMS REPORT | Continuity of Care Document ---
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
[2016-07-01 16:58] VITALS: BP 162/87
[2016-07-01] MEDS ORDERED: ALPRAZolam 0.25 MG TABLET PO ONE (19:30)
[2016-07-01] MEDS ORDERED: ALPRAZolam 0.25 MG TABLET ONE (19:37)
[2016-07-01 20:37] LABS: Hematocrit 44.5 % (42.0-52.0); Hemoglobin 13.8 gm/dL (13.5-18.0); Mean Cell Volume 91.8 fl (78-100); Mean Corpuscular Hemoglobin 28.5 pg (27-31); Mean Platelet Volume 10.6 fl (6.0-9.5); Neutrophil # 16.3 K/mm3 (1.3-6.0); Neutrophil % 92.4 % (42-75.0); Platelet Count 249 K/mm3 (150-450); Red Blood Count 4.85 M/mm3 (4.7-6.0); Red Cell Distribution Width 14.9 % (11.5-14.0); White Blood Count 17.6 K/mm3 (4.0-10.5)
[2016-07-01 20:41] LABS: Albumin * 3.3 gm/dl (3.4-5.0); Anion Gap 8.5 mmol/L (6.8-13.8); BUN/Creatinine Ratio 20.6 (9.0-21.6); Bilirubin, Total 0.1 mg/dL (0.0-1.1); Ca. Corrected For Albumin 8.7 mg/dL (8.4-10.2); Calcium * 8.5 mg/dL (7.9-10.9); Carbon Dioxide 35.5 mmol/L (24-32.6); Total Protein 6.5 gm/dL (6.2-8.2)
== END 2016-07-01 20:00 | disposition home or self-care (01) ==
LOC: ER 16:27
DX: R06.00 Dyspnea, unspecified (principal); J44.1 Chronic obstructive pulmonary disease with (acute) exacerbation; F41.9 Anxiety disorder, unspecified

== ENCOUNTER 2016-07-08 17:38 | Emergency (ER) | payer MEDICARE, OTHER ==
--- OUTSIDE RECORDS SUMMARY | 2016-07-08 18:13 | XMS REPORT | Summary of Care ---
:1950 Author Organization [facility] Address [address] [place] [id number] Care Team Providers Name Role Phone Lisa Saul Primary Care Physician Lana Mccormick Primary Care Physician Encounter Date(s): 06/14/16 - 06/14/[address] [address]- [facility] Discharge Diagnosis: COPD with exacerbation Discharge Disposition: Discharged to Home or Self Care Attending Physician: GINA Gray Admitting Physician: GINA Gray Vital Signs Most recent to oldest [Reference 1 2 3 Range]: Temperature Temporal Artery [36-38 36.6 DegC DegC] (06/14/16 8:53 PM) Temperature Temporal Artery 36.8 DegC [36.0-38.0 DegC] (06/14/16 5:30 PM) Heart Rate Monitored [60-100 bpm] 112 bpm 106 bpm 96 bpm *HI* *HI* (06/14/16 7:52 PM) (06/14/16 8:53 PM) (06/14/16 8:35 PM) Respiratory Rate [12-20 br/min] 23 br/min 17 br/min 26 br/min *HI* (06/14/16 8:35 PM) *HI* (06/14/16 8:53 PM) (06/14/16 7:52 PM) SpO2 90 % 90 % 96 % (06/14/16 8:53 PM) (06/14/16 8:35 PM) (06/14/16 7:52 PM) Blood Pressure [90-130/60-90 mmHg] 157/77mmHg 157/77mmHg 154/80mmHg *HI* *HI* *HI* (06/14/16 8:53 PM) (06/14/16 8:35 PM) (06/14/16 7:52 PM) Mean Arterial Pressure Monitor 95 mmHg 95 mmHg 97 mmHg Measure (06/14/16 8:53 PM) (06/14/16 8:35 PM) (06/14/16 7:52 PM) Most recent to oldest [Reference Range]: 1 2 3 Weight Estimated 105 kg (06/14/16 5:30 PM) Weight Dosing 105.00 kg1 (06/14/16 5:32 PM) 1Result Comment: This result was because the dosing weight was either not entered or it is>30 days old. This result is based off: Weight Estimated June 14, 2016 17:30:00 SUBSEA ENGINEER by Haley Guido RN Problem List Condition Effective Dates Status Health Status Informant Anxiety(Confirmed) Active Arthritis(Confirmed) Active COPD - Chronic obstructive pulmonary Active disease(Confirmed) Hypertension(Confirmed) Active Nodule(Confirmed)1 Active 1left lower lung Allergies, Adverse Reactions, Alerts Substance Reaction Severity Status aspirin Prednisone Moderate Active Medications albuterol 2.5 mg/3 mL (0.083%) inhalation solution 3 mL, Inhale, Daily, PRN as needed for wheezing, 0 Refill(s), Start Date: 9:32:00 CDT Start Date: 11/14/14 Stop Date: 02/07/16 Status: CompletedAllegra 1 tab, Oral, Daily, 0 Refill(s) Start Date: 09/14/13 Stop Date: 01/08/16 Status: DiscontinuedAllegra Oral, 0 Refill(s), Start Date: 03/13/16 9:23:00 CDT Start Date: 03/13/16 Stop Date: 06/14/16 Status: CompletedAllegra 24 Hour Allergy oral tablet 1 tab(s), Oral, Daily, # 30 tab(s), 0 Refill(s), Start Date: 06/14/16 17:46:00 [employer]SEA ENGINEER Start Date: 06/14/16 Status: OrderedAllegra 60 mg oral capsule 1 tab, Oral, Daily, # 30 tab(s), 0 Refill(s), Start Date: 01/08/16 11:33:00 CDT , other reason (Rx) Start Date: 01/08/16 Stop Date: 02/07/16 Status: CompletedALPRAZolam 0.25 mg oral tablet 1 tab(s), Oral, BID, # 60 tab(s), 0 Refill(s), Start Date: 10/29/15 10:31:00 CDT , Pharmacy: [facility] [id number] Start Date: 10/29/15 Stop Date: 01/02/16 Status: CompletedAugmentin 875 mg-125 mg oral tablet 1 tab(s), Oral, q12hr, # 28 tab(s), 0 Refill(s), Pharmacy: [place], [place] Start Date: 12/20/13 Stop Date: 02/14/14 Status: CompletedAzithromycin 5 Day Dose Pack 250 mg oral tablet 1 packet(s), Oral, Per Package Label, as directed on package labeling, X 5 days , # 6 tab(s), 0 Refill(s), Start Date: 03/13/16 11:50:00 CDT, Pharmacy: [facility] [place] [id number] Special Instructions: as directed on package labeling Start Date: 03/13/16 Stop Date: 03/18/16 Status: Completedbenzonatate 200 mg oral capsule 1 cap(s), Oral, TID, # 30 cap(s), 0 Refill(s), Start Date: 05/31/14 14:25:00 SUBSEA ENGINEER , Pharmacy: [place], [place] Start Date: 05/31/14 Stop Date: 11/14/14 Status: CompletedBrovana 15 mcg/2 mL inhalation solution 1 EA, NEB, BID, # 60 EA, 0 Refill(s) Start Date: 08/18/13 Stop Date: 12/20/13 Status: CompletedBrovana 15 mcg/2 mL inhalation solution 1 EA, NEB, BID, dx 496, # 180 EA, 3 Refill(s) Special Instructions: dx 496 Start Date: 02/10/14 Stop Date: 02/05/15 Status: Orderedbudesonide 0.5 mg/2 mL inhalation suspension 2 mL, NEB, BID, dx: 496, # 360 mL, 3 Refill(s) Special Instructions: dx: 496 Start Date: 02/07/14 Stop Date: 02/02/15 Status: Orderedbudesonide 0.5 mg/2 mL inhalation suspension 2 mL, NEB, BID, # 120 mL, 0 Refill(s) Start Date: 08/18/13 Stop Date: 02/07/14 Status: DiscontinuedCalcium 600+D 2 tab(s), Oral, Daily, 0 Refill(s), Start Date: 11/14/14 9:33:00 CDT Start Date: 11/14/14 Status: OrderedCheratussin AC 10 mg-100 mg/5 mL oral syrup See Instructions, PRN for cough and congestion, 1-2 tsp every 6 hours as needed for cough., # 4 oz, 0 Refill(s), Start Date: 06/28/14 17:03:00 SUBSEA ENGINEER Special Instructions: 1-2 tsp every 6 hours as needed for cough. Start Date: 06/28/14 Stop Date: 11/14/14 Status: CompletedCoreg 25 mg oral tablet 1 tab(s), Oral, BID, 0 Refill(s), Start Date: 08/18/13 11:04:00 CDT Start Date: 08/18/13 Status: Orderedcyclobenzaprine 10 mg oral tablet 1 tab(s), Oral, TID, PRN for spasm, Do not drive or work may cause droswiness, # 30 tab(s), 0 Refill(s), Start Date: 04/24/16 8:27:00 SUBSEA ENGINEER, Pharmacy: [facility] [id number] Special Instructions: Do not drive or work may cause droswiness Start Date: 04/24/16 Stop Date: 05/17/16 Status: CompletedDilaudid See Instructions, as directed, 0 Refill(s), Start Date: 05/24/14 10:18:00 SUBSEA ENGINEER Special Instructions: as directed Start Date: 05/24/14 Stop Date: 07/30/15 Status: CompletedDuoNeb 0.5 mg-2.5 mg/3 mL inhalation solution 3 mL, Inhale, QID, # 84 mL, 0 Refill(s), Start Date: 08/19/14 11:02:00 CDT, Pharmacy: [facility] Start Date: 08/19/14 Stop Date: 11/14/14 Status: CompletedFlonase 50 mcg/inh nasal spray 2 spray(s), Nasal, BID, # 1 EA, 2 Refill(s), Pharmacy: [place], [place] Start Date: 12/20/13 Stop Date: 02/14/14 Status: DiscontinuedFlovent Diskus 250 mcg inhalation powder 1 puff(s), Inhale, BID, # 60 EA, 0 Refill(s), Pharmacy: [place], [place] Start Date: 10/24/13 Stop Date: 12/20/13 Status: Completedfluticasone 0.05 mg/inh nasal spray 2 spray(s), Nasal, BID, 0 Refill(s) Start Date: 08/18/13 Stop Date: 02/14/14 Status: Completedfluticasone 50 mcg/inh nasal spray 1 spray(s), Nasal, BID, # 16 gm, 0 Refill(s), Start Date: 01/09/16 14:16:00 CDT , Pharmacy: [facility] [phone] Start Date: 01/09/16 Status: OrderedForadil Aerolizer 12 mcg inhalation capsule 1 cap(s), Inhale, q12hr interval, 496, # 60 cap(s), 5 Refill(s) Special Instructions: 496 Start Date: 11/16/13 Stop Date: 12/20/13 Status: CompletedFosamax 70 mg oral tablet tab(s), Oral, as directed, 0 Refill(s), Start Date: 05/24/14 10:18:00 SUBSEA ENGINEER Special Instructions: as directed Start Date: 05/24/14 Stop Date: 11/14/14 Status: Completedhydrochlorothiazide 12.5 mg oral tablet 1 tab(s), Oral, Daily, # 30 tab(s), 2 Refill(s), Start Date: 07/30/15 13:35:00 CDT, Pharmacy: [facility] [phone] Start Date: 07/30/15 Stop Date: 08/31/15 Status: Discontinuedipratropium 42 mcg/inh (0.06%) nasal spray 2 spray(s), Nasal, TID, X 30 days, # 15 mL, 3 Refill(s), [facility] [place] Start Date: 08/18/13 Stop Date: 12/16/13 Status: Completedipratropium 500 mcg/2.5 mL inhalation solution 2.5 mL, NEB, QID, # 300 mL, 6 Refill(s), Start Date: 11/14/14 10:17:00 CDT, Pharmacy: [facility], [place] Start Date: 11/14/14 Status: Orderedipratropium-albuterol 0.5 mg-2.5 mg/3 mLinhalation solution 3 mL, Inhale, QID, dx 496, # 1080 mL, 3 Refill(s), Start Date: 08/21/14 11:53: 15 CDT Special Instructions: dx 496 Start Date: 08/21/14 Stop Date: 11/14/14 Status: Completedipratropium-albuterol 0.5 mg-2.5 mg/3 mLinhalation solution 3 mL, Inhale, QID, dx 496, X 90 days, # 1080 mL, 3 Refill(s), Start Date: 16:10:00 CDT Special Instructions: dx 496 Start Date: 02/07/14 Stop Date: 08/21/14 Status: Completedipratropium-albuterol 0.5 mg-2.5 mg/3 mLinhalation solution 3 mL, Inhale, BID, 0 Refill(s) Start Date: 08/18/13 Stop Date: 02/07/14 Status: DiscontinuedLevaquin 500 mg oral tablet 1 tab(s), Oral, Daily, X 7 days, # 7 tab(s), 0 Refill(s), Start Date: 01/09/16 14:14:55 CDT, Pharmacy: [facility] [id number] Start Date: 01/09/16 Stop Date: 01/16/16 Status: CompletedLevaquin 500 mg oral tablet 1 tab(s), Oral, Daily, X 6 days, # 6 tab(s), 0 Refill(s), Start Date: 08/29/15 22:29:00 CDT Start Date: 08/29/15 Stop Date: 09/04/15 Status: CompletedLevaquin 750 mg oral tablet 1 tab(s), Oral, Daily, PRN congestion, X 5 days, # 5 tab(s), 0 Refill(s), Pharmacy: [place], [place] Start Date: 12/20/13 Stop Date: 12/25/13 Status: CompletedLidoderm 5% topical film 1 patch(es), Topical, Daily, remove patches after 12 hours, # 30 patch(es), 0 Refill(s), Pharmacy: [place], [place] Special Instructions: remove patches after 12 hours Start Date: 02/14/14 Stop Date: 05/24/14 Status: Completedlosartan 100 mg, Oral, Daily, 0 Refill(s) Start Date: 08/18/13 Stop Date: 02/07/16 Status: Completedlosartan 100 mg oral tablet 1 tab(s), Oral, Daily, # 90 tab(s), 3 Refill(s), Start Date: 04/24/16 8:28:00 SUBSEA ENGINEER, [facility] [id number] Start Date: 04/24/16 Status: Orderedlosartan 100 mg oral tablet 1 tab(s), Oral, Daily, Start Date: 02/07/16 14:47:00 CDT Start Date: 02/07/16 Stop Date: 04/24/16 Status: Discontinuedmontelukast 10 mg oral tablet 1 tab(s), Oral, qPM, # 30 tab(s), 5 Refill(s), Pharmacy: [place], [place] Start Date: 12/20/13 Stop Date: 02/14/14 Status: CompletedMucinex Max Strength 1200 mg oral tablet, extended release 1 tab(s), Oral, q12hr, X 14 days, # 28 tab(s), 0 Refill(s), Pharmacy: [place], [place] Start Date: 12/20/13 Stop Date: 01/03/14 Status: CompletedNorco 7.5 mg-325 mg oral tablet 1 tab(s), Oral, q6hr, PRN for pain, # 30 tab(s), 0 Refill(s) Start Date: 11/13/13 Stop Date: 11/23/13 Status: CompletedOXYGEN OXYGEN, 2 L, Nasal, HS, 2 L O2 AT NIGHT, 0 Refill(s), Supply Special Instructions: 2 L O2 AT NIGHT Start Date: 02/07/16 Status: OrderedPlavix 75 mg oral tablet 1 tab(s), Oral, Daily, # 30 tab(s), 0 Refill(s), Start Date: 04/09/16 13:21:00 SUBSEA ENGINEER, Pharmacy: [facility] [phone] Start Date: 04/09/16 Stop Date: 05/01/16 Status: CompletedPlavix 75 mg oral tablet 1 tab(s), Oral, Daily, # 30 tab(s), 0 Refill(s), Start Date: 05/01/16 14:15:09 SUBSEA ENGINEER, Pharmacy: [facility] [phone] Start Date: 05/01/16 Status: OrderedPlavix 75 mg oral tablet 1 tab(s), Oral, Daily, 0 Refill(s) Start Date: 08/18/13 Stop Date: 04/09/16 Status: DiscontinuedpredniSONE 10 mg oral tablet See Instructions, 40mg x 3 days, 30mg x 3 days, 20mg x 3 days, 10mg x 3 days, # 30 tab(s), 0 Refill(s), Start Date: 05/31/14 14:26:00 SUBSEA ENGINEER, Pharmacy: [place], [place] Special Instructions: 40mg x 3 days, 30mg x 3 days, 20mg x 3 days, 10mg x 3 days Start Date: 05/31/14 Stop Date: 11/14/14 Status: CompletedpredniSONE 20 mg oral tablet 2 tab(s), Oral, Daily, X 5 days, # 10 tab(s), 0 Refill(s), Start Date: 01/09/16 14:14:54 CDT, Pharmacy: [facility] [phone] Start Date: 01/09/16 Stop Date: 01/14/16 Status: CompletedpredniSONE 20 mg oral tablet 1 tab(s), Oral, Daily, # 10 tab(s), 0 Refill(s), [facility] [place] [place] Start Date: 02/14/14 Stop Date: 05/24/14 Status: CompletedpredniSONE 20 mg oral tablet 2 tab(s), Oral, Daily, X 5 days, # 10 tab(s), 0 Refill(s), Start Date: 03/13/16 11:49:00 CDT, Pharmacy: [facility] [id number] Start Date: 03/13/16 Stop Date: 03/18/16 Status: CompletedpredniSONE 20 mg oral tablet 2 tab(s), Oral, Daily, PRN congestion, X 5 days, # 10 tab(s), 0 Refill(s), [facility] [place] [place] Start Date: 12/20/13 Stop Date: 12/25/13 Status: CompletedpredniSONE 20 mg oral tablet 2 tab(s), Oral, Daily, # 10 tab(s), 0 Refill(s), Start Date: 08/31/15 10:32:00 CDT, [facility] [id number] Start Date: 08/31/15 Stop Date: 01/08/16 Status: CompletedpredniSONE 50 mg oral tablet 1 tab(s), Oral, Daily, Start tomorrowJune 15, 2016, X 7 days, # 7 tab(s), 0 Refill(s), Start Date: 06/14/16 20:23:00 SUBSEA ENGINEER Special Instructions: Start tomorrowJune 15, 2016 Start Date: 06/14/16 Stop Date: 06/21/16 Status: OrderedraNITIdine 150 mg oral tablet 1 tab(s), Oral, BID, PRN acid, stomach, # 60 tab(s), 5 Refill(s), Start Date: 8:48:00 SUBSEA ENGINEER, Pharmacy: [facility] [id number] Start Date: 05/17/16 Status: Orderedranitidine 150 mg oral tablet 1 tab(s), Oral, BID, PRN acid, stomach, 0 Refill(s), Start Date: 08/18/13 11:03: 00 CDT Start Date: 08/18/13 Stop Date: 05/17/16 Status: DiscontinuedSingulair 10 mg oral tablet 1 tab(s), Oral, qPM, # 30 tab(s), 3 Refill(s), Pharmacy: [facility] [place] [place] Start Date: 08/18/13 Stop Date: 09/19/13 Status: DiscontinuedSingulair 10 mg oral tablet 1 tab(s), Oral, qPM, # 30 tab(s), 2 Refill(s), Start Date: 01/08/16 11:32:57 CDT , Pharmacy: [facility] [phone] Start Date: 01/08/16 Status: OrderedSingulair 10 mg oral tablet 1 tab(s), Oral, qPM, # 30 tab(s), 2 Refill(s), Start Date: 08/31/15 13:05:00 CDT , Pharmacy: [facility] [phone] Start Date: 08/31/15 Stop Date: 01/08/16 Status: CompletedTessalon 200 mg oral capsule 1 cap(s), Oral, TID, # 30 cap(s), 0 Refill(s), Pharmacy: [facility] Start Date: 12/20/13 Stop Date: 05/24/14 Status: DiscontinuedTudorza Pressair 400 mcg/inh inhalation powder 1 puff(s), Inhale, BID, # 2 EA, 0 Refill(s), Start Date: 05/24/14 11:02:00 SUBSEA ENGINEER, samples given to patient (Rx), [id number], 03/10/15 Start Date: 05/24/14 Stop Date: 11/14/14 Status: CompletedTudorza Pressair 400 mcg/inh inhalation powder 1 puff(s), Inhale, BID, 0 Refill(s), Start Date: 05/24/14 11:02:00 SUBSEA ENGINEER Start Date: 05/24/14 Stop Date: 05/24/14 Status: DiscontinuedXanax 0.25 mg oral tablet 1 tab(s), Oral, BID, PRN as needed for anxiety, Needs follow up appointment for additional refills., # 60 tab(s), 0 Refill(s), Start Date: 01/02/16 13:54:00 CDT , Pharmacy: [facility] [phone] Special Instructions: Needs follow up appointment for additional refills. Start Date: 01/02/16 Stop Date: 02/05/16 Status: CompletedXanax 0.25 mg oral tablet 1 tab(s), Oral, BID, PRN as needed for anxiety, # 60 tab(s), 2 Refill(s), Start Date: 06/06/16 12:13:40 SUBSEA ENGINEER, Pharmacy: [place] [id number] Start Date: 06/06/16 Status: OrderedXanax 0.25 mg oral tablet 1 tab(s), Oral, BID, PRN as needed for anxiety, Needs follow up appointment for additional refills., # 60 tab(s), 0 Refill(s), Start Date: 02/05/16 13:13:23 CDT , Pharmacy: [facility] [place] [address] Special Instructions: Needs follow up appointment for additional refills. Start Date: 02/05/16 Stop Date: 03/07/16 Status: CompletedXanax 0.25 mg oral tablet 1 tab(s), Oral, BID, PRN as needed for anxiety, # 60 tab(s), 2 Refill(s), Start Date: 03/07/16 13:35:15 CDT, Pharmacy: [facility] [place] [id number] Start Date: 03/07/16 Stop Date: 06/06/16 Status: CompletedXanax 0.25 mg oral tablet tab(s), Oral, TID, PRN as needed for anxiety, 0 Refill(s) Start Date: 08/18/13 Stop Date: 01/02/16 Status: DiscontinuedZithromax 250 mg oral tablet See Instructions, take for an exacerbation as directed on package labeling, # 6 tab(s), 1 Refill(s), Start Date: 11/14/14 10:18:00 CDT, [facility] [place] Special Instructions: take for an exacerbation as directed on package labeling Start Date: 11/14/14 Stop Date: 07/30/15 Status: Completed Results Patient Viewable Results Most recent to oldest [Reference Range]: 1 2 Patient Temp 37.0 DegC *NA* (06/14/16 6:35 PM) pH Art [7.35-7.45] 7.37 (06/14/16 6:35 PM) pCO2 Art [35-45 mmHg] 60 mmHg *HI* (06/14/16 6:35 PM) pO2 Art [65-75 mmHg] 75 mmHg (06/14/16 6:35 PM) Totl CO2 Art [23-30 mmol/L] 36 mmol/L *HI* (06/14/16 6:35 PM) HCO3 Art [21-28 mEq/L] 31 mEq/L *HI* (06/14/16 6:35 PM) Base Excess Art 7.4 mmol/L *NA* (06/14/16 6:35 PM) O2 % Sat Art (m) [95-98 %] 96 %1 (06/14/16 6:35 PM) WBC [4.8-10.8 thou/mm3] 11.0 thou/mm3 *HI* (06/14/16 6:21 PM) RBC [4.60-6.00 Mil/mm3] 5.36 Mil/mm3 (06/14/16 6:21 PM) Hgb [14.0-18.0 g/dL] 15.7 g/dL (06/14/16 6:21 PM) Hct [42.0-52.0 %] 48.6 % (06/14/16 6:21 PM) MCV [80.0-94.0 fL] 90.7 fL (06/14/16 6:21 PM) MCH [25.0-38.0 pg/cell] 29.3 pg/cell (06/14/16 6:21 PM) MCHC [31.0-37.0 g/dL] 32.3 g/dL (06/14/16 6:21 PM) RDW [1.0-48.0 fL] 46.4 fL (06/14/16 6:21 PM) Platelet [130-400 thou/mm3] 304 thou/mm3 (06/14/16 6:21 PM) Neutrophils % Auto [50.0-75.0 %] 65.3 % (06/14/16 6:21 PM) Immature Granulocyte Auto [0.1-2.0 %] 0.5 % (06/14/16 6:21 PM) Lymphocytes % Auto [15.0-41.0 %] 23.6 % (06/14/16 6:21 PM) Monocytes % Auto [2.0-10.0 %] 8.5 % (06/14/16 6:21 PM) Eosinophils % Auto [0.0-6.0 %] 1.8 % (06/14/16 6:21 PM) Basophil % Auto [0.0-1.0 %] 0.3 % (06/14/16 6:21 PM) Neutrophils Absolute [1.5-5.9 thou/mm3] 7.2 thou/mm3 *HI* (06/14/16 6:21 PM) Immature Gran Absolute [0.01-0.03 thou/mm3] 0.06 thou/mm3 *HI* (06/14/16:21 PM) Lymphocytes Absolute [1.5-4.0 thou/mm3] 2.6 thou/mm3 (06/14/16 6:21 PM) Monocytes Absolute [0.0-0.9 thou/mm3] 0.9 thou/mm3 (06/14/16:21 PM) Eosinophil Absolute [0.0-0.7 thou/mm3] 0.2 thou/mm3 (06/14/16 6:21 PM) Basophil Absolute [0.0-0.2 thou/mm3] 0.0 thou/mm3 (06/14/16:21 PM) INR [0.9-1.1 INR] 0.9 INR (06/14/16 6:21 PM) PTT [22.7-35.2 seconds] 29.9 seconds (06/14/16:21 PM) D-Dimer [0.00-0.49 mcgFEU/mL] 0.46 mcgFEU/mL2 (06/14/16 6:21 PM) Sodium Lvl [135-144 mEq/L] 141 mEq/L (06/14/16: PM) Potassium Lvl [3.3-4.8 mEq/L] 4.2 mEq/L (06/14/16:21 PM) Chloride Lvl [98-107 mEq/L] 99 mEq/L (06/14/16 6:21 PM) Bicarbonate Lvl [22-30 mmol/L] 32 mmol/L *HI* (06/14/16 6: PM) Anion Gap [10.0-20.0] 14.2 (06/14/16 6:21 PM) Glucose Lvl [70-108 mg/dL] 87 mg/dL (06/14/16:21 PM) BUN [7-21 mg/dL] 12 mg/dL (06/14/16 6:21 PM) Creatinine Lvl [0.50-1.20 mg/dL] 0.95 mg/dL (06/14/16 6:21 PM) BUN/Creat Ratio 12.6 *NA* (06/14/16 6:21 PM) eGFR AA [>=60] >60 (06/14/16 6:21 PM) eGFR RONALD [>=60] >60 (06/14/16 6:21 PM) Calcium Lvl [8.6-10.2 mg/dL] 9.4 mg/dL (06/14/16 6:21 PM) Total Protein [6.4-8.3 g/dL] 7.0 g/dL (06/14/16 6:21 PM) Albumin Lvl [3.5-5.2 g/dL] 4.4 g/dL (06/14/16 6:21 PM) Globulin 2.6 *NA* (06/14/16 6:21 PM) A/G Ratio [0.9-1.8] 1.7 (06/14/16 6:21 PM) Bilirubin Total [0.1-1.0 mg/dL] 0.2 mg/dL (06/14/16 6:21 PM) Alkaline Phosphatase [39-129 unit/L] 53 unit/L (06/14/16 6:21 PM) AST [0-39 unit/L] 21 unit/L (06/14/16 6:21 PM) ALT [0-40 unit/L] 25 unit/L (06/14/16 6:21 PM) Lactic Acid Lvl [0.5-2.2 mmol/L] 1.1 mmol/L (06/14/16 6:21 PM) Procalcitonin [0.00-0.09 ng/mL] <0.05 ng/mL (06/14/16 6:21 PM) B-type Natriuretic Peptide [0-99 pg/mL] 12 pg/mL (06/14/16 6:21 PM) Myoglobin [0-74 ng/mL] 94 ng/mL3 *HI* (06/14/16 6:21 PM) Troponin-I [0.00-0.04 ng/mL] 0.01 ng/mL (06/14/16 6:21 PM) Estimated Creatinine Clearance 88.03 mL/min 79.64 mL/min (06/14/16 6:56 PM) (06/14/16 5:32 PM) InfluA EIA Naso [Negative] Negative4 (06/14/16 6:03 PM) InfluB EIA Naso [Negative] Negative5 (06/14/16 6:03 PM) 1Result Comment: o2 [id number] Comment: In low risk patients, normal D-Dimer test results (< 0.50 ug FEU/mL) indicate a low probability for deep venous thrombosis/pulmonary embolism.3Result Comment: Positive myoglobin is not diagnostic of myocardial injury but may also be seen in skeletal muscle trauma, renal failure, and noncardiac disorders. Clinical correlation is needed. (Non-Cardiac Reference Range=0 - 110 ng/mL)4Result Comment: Presumptive Negative for Influenza "A" protein antigen. Infection due to Influenza "A" cannot be ruled out. Influenza "A" antigen in the sample may be below the detection limit of thetest.5Result Comment: Presumptive Negative for Influenza "B" protein antigen. Infection due to Influenza "B" cannot be ruled out. Influenza "B" antigen in the sample may be below the detection limit of thetest. Immunizations Vaccine Date Refusal Reason influenza virus vaccine, inactivated 03/04/16 influenza virus vaccine, inactivated1 02/14/14 influenza virus vaccine, inactivated2, 3 02/14/14 influenza virus vaccine, inactivated 04/04/13 pneumococcal 23-polyvalent vaccine 04/12/12 1Result Comment: Afluria vac given IM in Right Deltoid. Pt tolerated inj well.2Result Comment: Afluiria vac 0.5ml given IM in Pt right Deltoid. Pt tolerated inj well.3Early/Late Reason: Other : Procedures Procedure Date Related Diagnosis Body Site Septoplasty (Bilateral)1 09/19/13 Thrombectomy2 2012 Colonoscopy Esophagogastroduodenoscopy 1auto-populated from documented surgical [id number] leg Social History No data available for this section Assessment and Plan No data available for this section
--- OUTSIDE RECORDS SUMMARY | 2016-07-08 18:13 | XMS REPORT | Continuity of Care Document ---
:1950 Author Organization [facility] ([facility]) Address [address] [place] [address] Phone [phone] Care Team Providers Name Role Lisa Vazquez Primary Care Provider [phone] Source Comments This disclosure is being made pursuant to the Care Everywhere program, applicable federal and state laws, and may not contain all informaitonavailable regarding this patient.[facility] ([facility]) Active Allergies and Adverse Reactions Allergen [...] m (5' 5.98") 07/15/2015 3:02 AM [employer]ED INS[employer]ENT Weight 117.935 kg (260 lb) 07/15/2015 3:02 AM [employer]ED INSURANCE AGENT Body Mass Index 41.99 07/15/2015 3:02 AM [employer]IC[employer]ED INSUR[employer] AGENT Oxygen Saturation 95% 07/24/2015 12:00 PM CDT Plan of Care Date Type Specialty Providers Description 08/27/2016 Wait List Med GI/Hepatology 08/27/2016 Appointment Med GI/Hepatology Josseline Meza MD Chief Comp: Patient [address] [place] [address] Visit [phone] (Fax) Health Maintenance Due Date Last Done [...]
[2016-07-08] MEDS ORDERED: ALPRAZolam 0.25 MG TABLET PO ONE (18:15)
[2016-07-08] MEDS ORDERED: ALPRAZolam 0.25 MG TABLET ONE (18:18)
--- NOTE | 2016-07-08 18:27 | ERNOTE ---
Dyspnea - General Presenting Symptoms: shortness of breath Time Seen by Provider: 07/08/16 18:04 Source: patient, family Exam Limitations: no limitations - Immun/Allergies/Home Medications Immunizations: IMMUNIZATION HX Immunizations Up to Date Yes History of Influenza Vaccine Yes Hx Pneumococcal Vaccination Yes Allergies/Adverse Reactions: Allergies aspirin Allergy (Mild, Verified 07/08/16 17:46) Hives Home Medications: HOME MEDICATIONS Albuterol Sulfate/Ipratropium [Duoneb 2.5-0.5MG/3ML Soln] 3 ml IH QID 07/05/15 [ Last Taken Unknown] Arformoterol Tartrate [Brovana] 15 mcg IH BID 07/05/15 [Last Taken Unknown] Budesonide [Pulmicort Respules] 0.5 mg IH BID 07/05/15 [Last Taken Unknown] Carvedilol [Coreg] 25 mg PO BID 07/05/15 [Last Taken Unknown] Clopidogrel Bisulfate [Plavix] 75 mg PO DAILY 07/05/15 [Last Taken Unknown] Losartan Potassium [Cozaar] 100 mg PO DAILY 07/05/15 [Last Taken Unknown] Ranitidine HCl [Zantac] 150 mg PO BID 07/05/15 [Last Taken Unknown] ALPRAZolam [Xanax] 0.25 mg PO BID PRN 04/04/16 [Last Taken Unknown] Montelukast Sodium [Singulair] 10 mg PO DAILY 04/04/16 [Last Taken Unknown] Acetaminophen [Tylenol] 650 mg PO QID PRN #0 tablet 07/01/16 [Last Taken Unknown ] Azithromycin [Zithromax] 250 mg PO DAILY #2 tablet 07/01/16 [Last Taken Unknown] Cefdinir [Omnicef] 300 mg PO Q12H #16 cap 07/01/16 [Last Taken Unknown] Dexamethasone [Decadron] 8 mg PO Q12H #26 tablet 07/01/16 [Last Taken Unknown] Sildenafil Citrate [Revatio] 20 mg PO TID #90 tablet 07/01/16 [Last Taken Unknown] - History of Present Illness Narrative: Patient has a history of COPD, sleep apnea, anxiety. He was hospitalized last week for a COPD exacerbation, had an ER visit on the day of discharge for shortness of breath that was felt to be due to anxiety. This morning he had a follow up with his doctor in [place],was feeling well at that time with good [id number]. When he got home he took a nap and woke up at 16:00 sweaty and short of breath. He has not had his xanax for a few days as he ran out. 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 Denies: currently on antibiotics Review of Systems - Review of Systems Constitutional: Present: recent illness. Absent: fever, chills ENT: Absent: nose congestion, nasal drainage, sore throat Respiratory: Present: See HPI, shortness of breath, cough Cardiology: Absent: chest pain Gastrointestinal/Abdominal: Absent: nausea, vomiting, abdominal pain Genitourinary: Present: no symptoms reported Skin: Present: no symptoms reported, other - diaphoresis Neurological: Absent: headache, weakness, numbness - Patient's Past Medical History Patient History - Medical: Anxiety, Arthritis, Chronic Pain, GERD, Headache, Osteoporosis Patient History - Cardiac/Respiratory: Asthma, COPD, Hypertension, Hyperlipidemia Patient History - Cancer: No Hx of Cancer Patient History - Surgical Procedures: Appendectomy, Colonoscopy Patient History - Other: None - Family History Mother Family History - Medical: No pertinent hx Family History - Cardiac/Respiratory: No pertinent hx Father Family History - Medical: , Alzheimer's Disease Family History - Cardiac/Respiratory: No pertinent hx - Social History Living Situations: spouse Abuse History: No History of abuse Psych History: Hx of Anxiety Does anyone smoke in the home?: Yes Smoking Status: Former smoker Have you smoked in the past 12 months: No Alcohol Use: none Drug Use: none - Immunizations Immunizations Up to Date: Yes Hx Pneumococcal Vaccination: Yes History of Influenza Vaccine: Yes Physical Exam - Physical Exam General Appearance: Present: wd/wn, alert, no apparent distress, anxious Eye Exam: Normal inspection: bilateral, PERRL: bilateral Ears, Nose, Throat: Present: normal pharynx Respiratory: Present: respiratory distress - mild, decreased breath sounds, expiration (prolonged) Cardiovascular/Chest: Present: regular rate, rhythm, no murmur Gastrointestinal/Abdominal: Present: soft Neurological Exam: Present: alert, oriented, normal mood/affect Skin Exam: Present: normal color, warm/dry ED Progress - Vital Signs Patient's Vital Signs:: I have reviewed the patient's vital signs. Vital Signs: Vital Signs 07/08/16 17:43 Temperature 36.5 C Pulse Rate 100 Respiratory 22 H Rate Blood Pressure 181/79 O2 Sat by Pulse 95 Oximetry - Progress/Reassessment Chief Complaint: Dyspnea Progress Note-Subjective: 07/08/16 19:20 patient feeling better after xanax, less anxious, O2sat 90-92 on RA Departure Clinical Impression: COPD bronchitis, Anxiety - Departure Disposition: Home self-care Condition: Fair Instructions: Chronic Obstructive Pulmonary Disease, [id number] Additional Instructions: use your xanax, oxygen, and breathing treatments as needed call your doctor for follow up
[2016-07-08 20:06] VITALS: BP 164/75
== END 2016-07-08 19:28 | disposition home or self-care (01) ==
LOC: ER 17:38
DX: J44.9 Chronic obstructive pulmonary disease, unspecified (principal); F41.9 Anxiety disorder, unspecified; Z87.891 Personal history of nicotine dependence; K21.9 Gastro-esophageal reflux disease without esophagitis; I10 Essential (primary) hypertension; J45.909 Unspecified asthma, uncomplicated

== ENCOUNTER 2017-01-06 12:14 | Emergency (ER) | payer MEDICARE, OTHER ==
[2017-01-06] MEDS ORDERED: ALBUTEROL SULFATE/IPRATROPIUM 3 ML NEBU IH ONE ×2 (12:59→13:26)
[2017-01-06] MEDS ORDERED: diphenhydrAMINE HCL 50 MG/ML VIAL IV ONE (12:59)
[2017-01-06] MEDS ORDERED: METOCLOPRAMIDE HCL 5 MG/ML VIAL IV ONE (12:59)
[2017-01-06] MEDS ORDERED: METHYLPREDNISOLONE SOD SUCC/PF 40 MG/ML VIAL IV ONE (12:59)
[2017-01-06] MEDS ORDERED: NORMAL SALINE 1,000 ML IV ONE (13:01)
[2017-01-06 13:19] LABS: Hematocrit 49.5 % (42.0-52.0); Hemoglobin 16.2 gm/dL (13.5-18.0); Mean Cell Volume 87.1 fl (78-100); Mean Corpuscular Hemoglobin 28.5 pg (27-31); Mean Corpuscular Hgb Conc 32.7 g/dl (32-36); Neutrophil # 4.7 K/mm3 (1.3-6.0); Neutrophil % 62.1 % (42-75.0); Platelet Count 201 K/mm3 (150-450); Red Blood Count 5.68 M/mm3 (4.7-6.0); White Blood Count 7.6 K/mm3 (4.0-10.5)
[2017-01-06] MEDS ORDERED: diphenhydrAMINE HCL 50 MG/ML VIAL ONE (13:25)
[2017-01-06] MEDS ORDERED: METHYLPREDNISOLONE SOD SUCC/PF 40 MG/ML VIAL ONE (13:25)
[2017-01-06] MEDS ORDERED: METOCLOPRAMIDE HCL 5 MG/ML VIAL ONE (13:25)
[2017-01-06 13:35] LABS: Albumin * 3.5 gm/dl (3.4-5.0); Bilirubin, Total 0.3 mg/dL (0.0-1.1); Calcium * 8.9 mg/dL (7.9-10.9); Carbon Dioxide 27.5 mmol/L (24-32.6); Magnesium 1.7 mg/dL (1.2-2.8); Potassium 4.5 mmol/L (3.4-4.6); Total Protein 6.5 gm/dL (6.2-8.2)
--- NOTE | 2017-01-06 14:59 | ERNOTE ---
Dyspnea - General Presenting Symptoms: shortness of breath, other - migraine headache Time Seen by Provider: 01/06/17 12:31 Source: patient Exam Limitations: no limitations - Immun/Allergies/Home Medications Immunizations: IMMUNIZATION HX Immunizations Up to Date Yes History of Influenza Vaccine Yes Hx Pneumococcal Vaccination Yes Allergies/Adverse Reactions: Allergies aspirin Allergy (Mild, Verified 01/06/17 12:28) Hives Home Medications: HOME MEDICATIONS Albuterol Sulfate/Ipratropium [Duoneb 2.5-0.5MG/3ML Soln] 3 ml IH QID 07/05/15 [ Last Taken Unknown] Arformoterol Tartrate [Brovana] 15 mcg IH BID 07/05/15 [Last Taken Unknown] Budesonide [Pulmicort Respules] 0.5 mg IH BID 07/05/15 [Last Taken Unknown] Carvedilol [Coreg] 25 mg PO BID 07/05/15 [Last Taken Unknown] Clopidogrel Bisulfate [Plavix] 75 mg PO DAILY 07/05/15 [Last Taken Unknown] Losartan Potassium [Cozaar] 100 mg PO DAILY 07/05/15 [Last Taken Unknown] Ranitidine HCl [Zantac] 150 mg PO BID 07/05/15 [Last Taken Unknown] ALPRAZolam [Xanax] 0.25 mg PO BID PRN 04/04/16 [Last Taken Unknown] Montelukast Sodium [Singulair] 10 mg PO DAILY 04/04/16 [Last Taken Unknown] Acetaminophen [Tylenol] 650 mg PO QID PRN #0 tablet 07/01/16 [Last Taken Unknown ] Albuterol Sulfate/Ipratropium [Duoneb 2.5-0.5MG/3ML Soln] 3 ml IH QID 01/06/17 [ Last Taken Unknown] Doxycycline Monohydrate 100 mg PO BID #20 tablet 01/06/17 [Last Taken Unknown] Prochlorperazine [Compazine] 25 mg RC BID PRN #14 supp.rect 01/06/17 [Last Taken Unknown] predniSONE [Deltasone] 20 mg PO BID #10 tablet 01/06/17 [Last Taken Unknown] - History of Present Illness Narrative: Patient presents with 2 complaints, he has exacerbation of one of his migraine headaches. He states normally he can treat this at home with Excedrin Migraine , however it did not work this time. He presents with a throbbing headache mild nausea and photophobia, which is typical for his migraine headaches. He also feels as though his COPD is flaring up as he has cough wheezing and shortness of breath. These are the similar symptoms to when he normally has a flare up his COPD and his migraine headache is as it normally is when he gets 1. Severity: moderate Initiating event: Reports: none Frequency of episodes: Reports: occassional episodes Associated Symptoms-Dyspnea: Reports: cough, wheezing Review of Systems - Review of Systems Constitutional: Present: See HPI EYE: Present: no symptoms reported ENT: Present: no symptoms reported Respiratory: Present: shortness of breath, cough, wheezing Cardiology: Present: no symptoms reported Gastrointestinal/Abdominal: Present: nausea Genitourinary: Present: no symptoms reported Musculoskeletal: Present: no symptoms reported Skin: Present: no symptoms reported Neurological: Present: headache Endocrine: Present: no symptoms reported Hematologic/Lymphatic: Present: no symptoms reported Psych: Present: no symptoms reported - Patient's Past Medical History Patient History - Medical: Anxiety, Arthritis, Chronic Pain, GERD, Headache, Osteoporosis Patient History - Cardiac/Respiratory: Asthma, COPD, Hypertension, Hyperlipidemia Patient History - Cancer: No Hx of Cancer Patient History - Surgical Procedures: Appendectomy, Colonoscopy Patient History - Other: None - Family History Mother Family History - Medical: No pertinent hx Family History - Cardiac/Respiratory: No pertinent hx Father Family History - Medical: , Alzheimer's Disease Family History - Cardiac/Respiratory: No pertinent hx - Social History Living Situations: home Abuse History: No History of abuse Psych History: Hx of Anxiety Does anyone smoke in the home?: Yes Alcohol Use: none Drug Use: none - Immunizations Immunizations Up to Date: Yes Hx Pneumococcal Vaccination: Yes History of Influenza Vaccine: Yes Physical Exam - Physical Exam General Appearance: Present: wd/wn, alert, moderate distress Head Exam: Present: normal inspection Eye Exam: Normal inspection: bilateral, PERRL: bilateral, Photophobia: bilateral Ears, Nose, Throat: Present: normal ENT inspection, H, normal pharynx Neck: Present: normal inspection, nontender Respiratory: Present: no accessory muscle use, chest nontender, wheezing Cardiovascular/Chest: Present: regular rate, rhythm, no murmur, normal peripheral pulses Gastrointestinal/Abdominal: Present: normal bowel sounds, nontender, nondistended, soft, no organomegaly Rectal Exam: Present: deferred Back Exam: Present: normal inspection, normal range of motion Extremity Exam: Present: normal inspection, non-tender, no edema, normal range of motion Neurological Exam: Present: alert, oriented, normal mood/affect Skin Exam: Present: normal color, warm/dry Lymphatic Exam: Present: no adenopathy ED Progress - Results and Orders Patient's Lab Results:: I have reviewed the patient's lab results. - Vital Signs Patient's Vital Signs:: I have reviewed the patient's vital signs. Vital Signs: Vital Signs 01/06/17 01/06/17 12:24 13:33 Temperature 36.5 C Pulse Rate 82 82 Respiratory 19 19 Rate Blood Pressure 148/93 168/71 O2 Sat by Pulse 96 96 Oximetry - X-Ray X-Ray #1 X-Ray: chest Interpretation: Reviewed by me - Progress/Reassessment Chief Complaint: Dyspnea Progress:: Improved Plan - Plan Plan: Patient states that his migraine headache, as both a throbbing nature is improved and the photophobia appears to be gone. He also states that his breathing is significantly better, both his cough and shortness of breath have improved. Patient states he feels good to go home and we will send him home with prednisone, doxycycline, Compazine suppository that he can take with Benadryl if his headache returns. He agrees to follow-up with his family physician as needed. Departure Clinical Impression: COPD bronchitis Migraine Qualifiers: Migraine type: unspecified Status migrainosus presence: without status migrainosus Intractability: not intractable Qualified Code(s): G43.909 - Migraine, unspecified, not intractable, without status migrainosus - Departure Disposition: Home self-care Condition: Good Instructions: Chronic Obstructive Pulmonary Disease, [id number], Recurrent Migraine Headache, [id number] Additional Instructions: With any recurrence of a migraine headache take the Compazine suppository and add 50 mg of Benadryl orally and go find a dark quiet room to lay down and to give the migraine headache and opportunity to pass. Prescriptions: Doxycycline Monohydrate 100 mg PO BID #20 tablet predniSONE [Deltasone] 20 mg PO BID #10 tablet Prochlorperazine [Compazine] 25 mg RC BID PRN #14 supp.rect PRN Reason: Headache
[2017-01-06 15:08] VITALS: BP 155/91
== END 2017-01-06 15:05 | disposition home or self-care (01) ==
LOC: ER 12:14
DX: G43.909 Migraine, unspecified, not intractable, without status migrainosus (principal); J44.9 Chronic obstructive pulmonary disease, unspecified; K21.9 Gastro-esophageal reflux disease without esophagitis; J45.909 Unspecified asthma, uncomplicated; F41.9 Anxiety disorder, unspecified; I10 Essential (primary) hypertension; E78.5 Hyperlipidemia, unspecified

== ENCOUNTER 2017-01-25 02:54 | Emergency (ER) | payer MEDICARE, MEDICAID ==
[2017-01-25] MEDS ORDERED: ALBUTEROL SULFATE/IPRATROPIUM 3 ML NEBU IH ONE ×2 (02:55→02:59)
[2017-01-25] MEDS ORDERED: METHYLPREDNISOLONE SOD SUCC/PF 125 MG/2 ML VIAL IV ONE (02:59)
[2017-01-25] MEDS ORDERED: METHYLPREDNISOLONE SOD SUCC/PF 125 MG/2 ML VIAL ONE (03:03)
--- NOTE | 2017-01-25 03:52 | ERNOTE ---
Dyspnea - General Presenting Symptoms: shortness of breath, difficulty of breathing Time Seen by Provider: 01/25/17 02:58 Source: patient, EMS, RN notes reviewed Exam Limitations: clinical condition - Immun/Allergies/Home Medications Immunizations: IMMUNIZATION HX Immunizations Up to Date Yes History of Influenza Vaccine Yes Hx Pneumococcal Vaccination Yes Allergies/Adverse Reactions: Allergies aspirin Allergy (Mild, Verified 01/25/17 03:00) Hives Home Medications: HOME MEDICATIONS Albuterol Sulfate/Ipratropium [Duoneb 2.5-0.5MG/3ML Soln] 3 ml IH QID 07/05/15 [ Last Taken Unknown] Arformoterol Tartrate [Brovana] 15 mcg IH BID 07/05/15 [Last Taken Unknown] Budesonide [Pulmicort Respules] 0.5 mg IH BID 07/05/15 [Last Taken Unknown] Carvedilol [Coreg] 25 mg PO BID 07/05/15 [Last Taken Unknown] Clopidogrel Bisulfate [Plavix] 75 mg PO DAILY 07/05/15 [Last Taken Unknown] Losartan Potassium [Cozaar] 100 mg PO DAILY 07/05/15 [Last Taken Unknown] Ranitidine HCl [Zantac] 150 mg PO BID 07/05/15 [Last Taken Unknown] ALPRAZolam [Xanax] 0.25 mg PO BID PRN 04/04/16 [Last Taken Unknown] Montelukast Sodium [Singulair] 10 mg PO DAILY 04/04/16 [Last Taken Unknown] Acetaminophen [Tylenol] 650 mg PO QID PRN #0 tablet 07/01/16 [Last Taken Unknown ] Albuterol Sulfate/Ipratropium [Duoneb 2.5-0.5MG/3ML Soln] 3 ml IH QID 01/06/17 [ Last Taken Unknown] Prochlorperazine [Compazine] 25 mg RC BID PRN #14 supp.rect 01/06/17 [Last Taken Unknown] predniSONE [Prednisone] 3 tab PO DAILY #15 tab 01/25/17 [Last Taken Unknown] - History of Present Illness Narrative: Patient with long history of chronic COPD and frequent ED visits to get assistance with his breathing presents with another episode of waking up with shortness of breath and wheezing. He called EMS who promptly brought him here. He is tachypneic on arrival, with grunting respirations. Patient doesn't open his eyes and interact much with myself, only if pushed will he converse with me. 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 Absent: recent illness, fever, chills EYE: Present: no symptoms reported ENT: Absent: ear pain, nose congestion, sore throat Respiratory: Present: shortness of breath, cough, orthopnea, wheezing Cardiology: Present: palpitations. Absent: chest pain, syncope Gastrointestinal/Abdominal: Absent: nausea, vomiting, diarrhea, abdominal pain Genitourinary: Present: no symptoms reported Musculoskeletal: Present: no symptoms reported Skin: Present: no symptoms reported Neurological: Present: no symptoms reported - Patient's Past Medical History Patient History - Medical: Anxiety, Arthritis, Chronic Pain, GERD, Headache, Osteoporosis Patient History - Cardiac/Respiratory: Asthma, COPD, Hypertension, Hyperlipidemia Patient History - Cancer: No Hx of Cancer Patient History - Surgical Procedures: Appendectomy, Colonoscopy Patient History - Other: None - Family History Mother Family History - Medical: No pertinent hx Family History - Cardiac/Respiratory: No pertinent hx Father Family History - Medical: , Alzheimer's Disease Family History - Cardiac/Respiratory: No pertinent hx - Social History Living Situations: home Abuse History: No History of abuse Psych History: Hx of Anxiety Does anyone smoke in the home?: Yes Smoking Status: Former smoker Alcohol Use: none Drug Use: none - Immunizations Immunizations Up to Date: Yes Hx Pneumococcal Vaccination: Yes History of Influenza Vaccine: Yes Physical Exam - Physical Exam General Appearance: Present: wd/wn, severe distress, anxious Head Exam: Present: normal inspection, no evidence of injury Eye Exam: Normal inspection: bilateral, PERRL: bilateral, EOMI: bilateral Ears, Nose, Throat: Present: normal ENT inspection Neck: Present: normal inspection, nontender Respiratory: Present: respiratory distress, accessory muscle use, decreased breath sounds, expiration (prolonged) Cardiovascular/Chest: Present: no murmur, tachycardia Gastrointestinal/Abdominal: Present: normal bowel sounds, nontender, nondistended, soft Back Exam: Present: normal inspection, normal range of motion, no CVA tenderness , no vertebral tenderness Extremity Exam: Present: normal inspection Neurological Exam: Present: alert, oriented, normal mood/affect, no motor/ sensory deficits Skin Exam: Present: normal color, warm/dry ED Progress - Vital Signs Patient's Vital Signs:: I have reviewed the patient's vital signs. Vital Signs: Vital Signs 01/25/17 01/25/17 01/25/17 02:55 03:05 03:08 Temperature 36.8 C Pulse Rate 105 H 102 H 99 Respiratory 34 H 32 H 28 H Rate Blood Pressure 202/116 145/84 O2 Sat by Pulse 96 95 Oximetry 01/25/17 03:38 Temperature Pulse Rate 95 Respiratory 24 H Rate Blood Pressure 131/65 O2 Sat by Pulse 92 Oximetry - Progress/Reassessment Chief Complaint: Dyspnea Progress:: Improved Progress Note-Subjective: 01/25/17 05:22 Patient complained of a migraine headache, he was offered the usual migraine regimen used here consisting of Toradol, Benadryl and Phenergan, which he accepted after he complained vigorously about this facility and stating he wanted to go to [place] where his physicians are. I counseled patient that he was indeed able to leave and go to [place], but the reason that I was in the room was to clarify if he could actually take the planned treatment because he lists an allergy to aspirin and I wanted to be sure he would tolerate the Toradol. He agreed to try the medications. I went back in at 5:20 AM, he was sleeping and snoring. I woke him up, he agreed his headache was better and he was ready to go home. Departure Clinical Impression: Acute and chronic respiratory failure with hypercapnia Migraine headache Qualifiers: Migraine type: without aura Status migrainosus presence: without status migrainosus Intractability: not intractable Qualified Code(s): G43.009 - Migraine without aura, not intractable, without status migrainosus - Departure Disposition: Home self-care Condition: Stable Instructions: Recurrent Migraine Headache, Chronic Obstructive Pulmonary Disease, [id number] Referrals: Cling,Lana, PAC [Non Staff Physicians] - (3-5 days) Prescriptions: predniSONE [Prednisone] 3 tab PO DAILY #15 tab
[2017-01-25] MEDS ORDERED: ACETAMINOPHEN 500 MG TABLET PO ONE (04:00)
[2017-01-25] MEDS ORDERED: PROMETHAZINE HCL 25 MG/ML AMPUL IM ONE (04:14)
[2017-01-25] MEDS ORDERED: diphenhydrAMINE HCL 50 MG/ML VIAL IV ONE (04:14)
[2017-01-25] MEDS ORDERED: KETOROLAC TROMETHAMINE 30 MG/ML VIAL IV ONE (04:15)
[2017-01-25] MEDS ORDERED: diphenhydrAMINE HCL 50 MG/ML VIAL ONE (04:16)
[2017-01-25] MEDS ORDERED: KETOROLAC TROMETHAMINE 30 MG/ML VIAL ONE (04:16)
[2017-01-25] MEDS ORDERED: PROMETHAZINE HCL 25 MG/ML AMPUL ONE (04:17)
[2017-01-25 06:12] VITALS: BP 157/89
== END 2017-01-25 05:31 | disposition home or self-care (01) ==
LOC: ER 02:54
DX: J96.22 Acute and chronic respiratory failure with hypercapnia (principal); G43.909 Migraine, unspecified, not intractable, without status migrainosus; Z87.891 Personal history of nicotine dependence

== ENCOUNTER 2017-06-04 10:59 | Emergency (ER) | payer MEDICARE, MEDICAID ==
[2017-06-04] MEDS ORDERED: ALBUTEROL SULFATE/IPRATROPIUM 3 ML NEBU IH ONE ×2 (11:12→11:21)
[2017-06-04] MEDS ORDERED: METHYLPREDNISOLONE SOD SUCC/PF 125 MG/2 ML VIAL IV ONE (11:12)
--- NOTE | 2017-06-04 11:17 | ERNOTE ---
Dyspnea - Date Date of Service: 06/04/17 - General Presenting Symptoms: shortness of breath, wheezing Time Seen by Provider: 06/04/17 11:04 Source: patient Exam Limitations: no limitations - Immun/Allergies/Home Medications Immunizations: IMMUNIZATION HX Immunizations Up to Date Yes History of Influenza Vaccine No Hx Pneumococcal Vaccination Yes Allergies/Adverse Reactions: Allergies aspirin Allergy (Mild, Verified 06/04/17 11:09) Hives Home Medications: HOME MEDICATIONS Albuterol Sulfate/Ipratropium [Duoneb 2.5-0.5MG/3ML Soln] 3 ml IH QID 07/05/15 [ Last Taken Unknown] Arformoterol Tartrate [Brovana] 15 mcg IH BID 07/05/15 [Last Taken Unknown] Budesonide [Pulmicort Respules] 0.5 mg IH BID 07/05/15 [Last Taken Unknown] Carvedilol [Coreg] 25 mg PO BID 07/05/15 [Last Taken Unknown] Clopidogrel Bisulfate [Plavix] 75 mg PO DAILY 07/05/15 [Last Taken Unknown] Losartan Potassium [Cozaar] 100 mg PO DAILY 07/05/15 [Last Taken Unknown] Ranitidine HCl [Zantac] 150 mg PO BID 07/05/15 [Last Taken Unknown] ALPRAZolam [Xanax] 0.25 mg PO BID PRN 04/04/16 [Last Taken Unknown] Montelukast Sodium [Singulair] 10 mg PO DAILY 04/04/16 [Last Taken Unknown] Acetaminophen [Tylenol] 650 mg PO QID PRN #0 tablet 07/01/16 [Last Taken Unknown ] Albuterol Sulfate/Ipratropium [Duoneb 2.5-0.5MG/3ML Soln] 3 ml IH QID 01/06/17 [ Last Taken Unknown] Doxycycline Hyclate [Vibratab] 100 mg PO BID #20 tab 06/04/17 [Last Taken Unknown] Omeprazole 40 mg PO DAILY 06/04/17 [Last Taken Unknown] Polyethylene Glycol 3350 [Gavilax] 8.5 gm PO DAILY 06/04/17 [Last Taken Unknown] predniSONE [Prednisone] 1 tab PO DAILY 10 Days #10 tab 06/04/17 [Last Taken Unknown] - History of Present Illness Narrative: Patient presents to the ED for increased cough and SOB. No fever noted. He uses oxygen at home during the night 2L. No CP or SOB. He states the cough has made him feel dizzy at times. No syncope. No CP. No abdominal pain. No new calf pain or leg swelling. He has been coughing up thick white sputum. No hemoptysis. Nothing seems to make this better or worse. Severity: moderate Treatment STORY EDITOR: by patient Initiating event: Reports: other - cough Frequency of episodes: Reports: chronic episodes Modifying Factors - (Improves): Reports: nothing Modifying Factors (Worsens): Reports: activity Associated Symptoms-Dyspnea: Reports: cough, wheezing, lightheadedness. Denies : fever/chills, chest pain/discomfort, weakness, tingling of hands/face Prior Treatment: Denies: recently seen Review of Systems - Review of Systems Constitutional: Absent: fever EYE: Absent: double vision ENT: Absent: sore throat Respiratory: Present: See HPI Cardiology: Absent: chest pain Gastrointestinal/Abdominal: Absent: abdominal pain Genitourinary: Absent: dysuria Skin: Absent: rash Neurological: Absent: weakness - Patient's Past Medical History Patient History - Medical: Anxiety, Arthritis, Chronic Pain, GERD, Headache, Osteoporosis Patient History - Cardiac/Respiratory: Asthma, COPD, Deep Vein Thrombosis, Hypertension, Hyperlipidemia Patient History - Cancer: No Hx of Cancer Patient History - Surgical Procedures: Appendectomy, Colonoscopy, Other, ENT Patient History - Other: None - Family History Mother Family History - Medical: No pertinent hx Family History - Cardiac/Respiratory: No pertinent hx Father Family History - Medical: , Alzheimer's Disease Family History - Cardiac/Respiratory: No pertinent hx - Social History Living Situations: spouse Abuse History: No History of abuse Psych History: Hx of Anxiety Smoking Status: Former smoker Have you smoked in the past 12 months: No Do you dip or chew tobacco: No Alcohol Use: occasionally Drug Use: none - Immunizations Immunizations Up to Date: Yes Hx Pneumococcal Vaccination: Yes History of Influenza Vaccine: No Physical Exam - Physical Exam General Appearance: Present: alert, no apparent distress Head Exam: Present: normal inspection, no evidence of injury Eye Exam: Normal inspection: bilateral, PERRL: bilateral Ears, Nose, Throat: Present: normal ENT inspection Neck: Present: normal inspection Respiratory: Present: no respiratory distress, no accessory muscle use, wheezing , other - Scatterd wheezes, frerquent cough Cardiovascular/Chest: Present: regular rate, rhythm Gastrointestinal/Abdominal: Present: normal bowel sounds, nontender, nondistended, soft Back Exam: Present: normal range of motion Extremity Exam: Present: normal inspection, normal range of motion Neurological Exam: Present: alert, normal mood/affect, no motor/sensory deficits Skin Exam: Present: normal color, warm/dry ED Progress - Results and Orders Patient's Lab Results:: I have reviewed the patient's lab results. - Vital Signs Patient's Vital Signs:: I have reviewed the patient's vital signs. Vital Signs: Vital Signs 06/04/17 11:03 Temperature 36.9 C Pulse Rate 84 Respiratory 24 H Rate Blood Pressure 159/98 O2 Sat by Pulse 96 Oximetry - EKG EKG: NSR EKG read: Interp. by me EKG Comments: NSR rate 83. Non-specific ST/T wave changes, no clear evidence of STEMI - X-Ray X-Ray #1 X-Ray: chest Interpretation: Interp. by me X-ray Comments: I reviewed official radiology report - Progress/Reassessment Chief Complaint: Dyspnea Progress Note-Subjective: 06/04/17 12:33 He was feeling much improved. He states he normally gets much better with steroids. I offered him observation but he declines this and wishes to gohome. Wheezing nearly resolved. No distress, speaking in full sentences, no hypoxia or hypercarbia. No suggestion of PE, aortic dissection, pneumonia, sepsis, toxicity, ACS, CFH. Clinically c/w COPD exacerbation. Will treat with ABx, steroids and close f/u. I discussed warning signs and reasons to return as well as the need for close f/u. 06/04/17 12:39 He tells me that a steroid burst does not work for him, he needs 10 days of the same dose and that is the only thing that works for him. Departure Clinical Impression: COPD exacerbation - Departure Disposition: Home self-care Condition: Stable Instructions: Chronic Obstructive Pulmonary Disease Exacerbation, [id number] Additional Instructions: Rest. Fluids. Antibiotics as directed. Steroids as directed. Follow-up with your doctor within 3 days for a re-check. Return if you change your mind about observation, develop increased trouble breathing or if your condition worsens or changes in any way. Prescriptions: Doxycycline Hyclate [Vibratab] 100 mg PO BID #20 tab predniSONE [Prednisone] 1 tab PO DAILY 10 Days #10 tab
[2017-06-04] MEDS ORDERED: METHYLPREDNISOLONE SOD SUCC/PF 125 MG/2 ML VIAL ONE (11:21)
[2017-06-04 11:30] LABS: Hematocrit 50.4 % (42.0-52.0); Hemoglobin 16.7 gm/dL (13.5-18.0); Mean Cell Volume 90.2 fl (78-100); Mean Corpuscular Hemoglobin 29.9 pg (27-31); Mean Corpuscular Hgb Conc 33.1 g/dl (32-36); Mean Platelet Volume 10.2 fl (6.0-9.5); Neutrophil # 5.2 K/mm3 (1.3-6.0); Neutrophil % 62.6 % (42-75.0); Platelet Count 232 K/mm3 (150-450); Red Blood Count 5.59 M/mm3 (4.7-6.0); Red Cell Distribution Width 13.6 % (11.5-14.0); White Blood Count 8.2 K/mm3 (4.0-10.5)
[2017-06-04 11:51] LABS: ALT 22 U/L (19-67); AST 11 U/L (0-48); Albumin * 3.8 gm/dl (3.4-5.0); Alkaline Phosphatase * 52 U/L (50-170); Anion Gap 8.2 mmol/L (6.8-13.8); Bilirubin, Total 0.3 mg/dL (0.0-1.1); Ca. Corrected For Albumin 8.8 mg/dL (8.4-10.2); Carbon Dioxide 32.5 mmol/L (24-32.6); Chloride 101 mmol/L (97-106); Glucose * 97 mg/dL (70-110); Potassium 4.7 mmol/L (3.4-4.6); Sodium 137 mmol/L (132-142); Total Protein 6.9 gm/dL (6.2-8.2)
[2017-06-04 11:56] LABS: Troponin I Less than 0.017 ng/ml (0.00-0.10)
[2017-06-04 12:04] LABS: BUN/Creatinine Ratio 15.8 (9.0-21.6); Blood Urea Nitrogen 18 mg/dL (6-23)
[2017-06-04 13:13] VITALS: BP 134/81
== END 2017-06-04 12:58 | disposition home or self-care (01) ==
LOC: ER 10:59
DX: J44.1 Chronic obstructive pulmonary disease with (acute) exacerbation; K21.9 Gastro-esophageal reflux disease without esophagitis; I10 Essential (primary) hypertension; E78.5 Hyperlipidemia, unspecified; M19.90 Unspecified osteoarthritis, unspecified site; G89.29 Other chronic pain; Z79.01 Long term (current) use of anticoagulants; Z86.718 Personal history of other venous thrombosis and embolism; M81.0 Age-related osteoporosis without current pathological fracture

== ENCOUNTER 2018-03-14 16:48 | Observation (INO) | payer MEDICAID, MEDICARE ==
[2018-03-14] MEDS ORDERED: ALBUTEROL SULFATE/IPRATROPIUM 3 ML NEBU IH ONE (17:10)
[2018-03-14] MEDS ORDERED: METHYLPREDNISOLONE SOD SUCC/PF 40 MG/ML VIAL IV ONE (17:10)
[2018-03-14 17:23] LABS: Hematocrit 52.9 % (42.0-52.0); Hemoglobin 16.9 gm/dL (13.5-18.0); Mean Cell Volume 93.6 fl (78-100); Mean Corpuscular Hemoglobin 29.9 pg (27-31); Mean Corpuscular Hgb Conc 31.9 g/dl (32-36); Mean Platelet Volume 10.5 fl (8-11.3); Neutrophil # 6.2 K/mm3 (1.3-6.0); Neutrophil % 65.4 % (42-75.0); Platelet Count 244 K/mm3 (150-450); Red Blood Count 5.65 M/mm3 (4.7-6.0); Red Cell Distribution Width 13.8 % (11.5-14.0); White Blood Count 9.6 K/mm3 (4.0-10.5)
[2018-03-14 17:32] LABS: Albumin * 3.7 gm/dl (3.4-5.0); Anion Gap 6.8 mmol/L (6.8-13.8); BUN/Creatinine Ratio 11.6 (9.0-21.6); Bilirubin, Total 0.4 mg/dL (0.0-1.1); Ca. Corrected For Albumin 9.1 mg/dL (8.4-10.2); Calcium * 9.2 mg/dL (7.9-10.9); Carbon Dioxide 35.5 mmol/L (24-32.6); Potassium 4.3 mmol/L (3.4-4.6); Total Protein 7.1 gm/dL (6.2-8.2)
[2018-03-14] MEDS ORDERED: ALBUTEROL SULFATE 2.5 MG/0.5 ML VIAL.NEB IH ONE ×2 (17:32→17:35)
[2018-03-14] MEDS ORDERED: METHYLPREDNISOLONE SOD SUCC/PF 125 MG/2 ML VIAL ONE (18:06)
[2018-03-14] MEDS ORDERED: ALPRAZolam 0.25 MG TABLET PO ONE (18:42)
[2018-03-14] MEDS ORDERED: ALPRAZolam 0.25 MG TABLET ONE (18:45)
--- NOTE | 2018-03-14 19:39 | ERNOTE ---
Dyspnea - Date Date of Service: 03/14/18 - General Presenting Symptoms: shortness of breath Time Seen by Provider: 03/14/18 17:01 Source: patient, family Exam Limitations: clinical condition - Immun/Allergies/Home Medications Immunizations: IMMUNIZATION HX Immunizations Up to Date Yes History of Influenza Vaccine Yes Hx Pneumococcal Vaccination Yes Allergies/Adverse Reactions: Allergies aspirin Allergy (Mild, Verified 03/14/18 16:56) Hives Home Medications: HOME MEDICATIONS Carvedilol [Coreg] 25 mg PO BID 07/05/15 [Last Taken Unknown] Clopidogrel Bisulfate [Plavix] 75 mg PO DAILY 07/05/15 [Last Taken Unknown] Albuterol Sulfate [Albuterol Sulfate 2.5 MG/3 ML] 2.5 mg IH DAILY PRN 10/23/17 [Last Taken Unknown] Albuterol Sulfate [Proair Hfa] 2 puff IH QID PRN 10/23/17 [Last Taken Unknown] Alprazolam [Xanax] 0.25 mg PO BID PRN 10/23/17 [Last Taken Unknown] Arformoterol Tartrate [Brovana] 15 mcg IH BID 10/23/17 [Last Taken Unknown] Budesonide [Pulmicort Respules] 2 ml IH BID 10/23/17 [Last Taken Unknown] Calcium Carbonate/Vitamin D3 [Calcium 600 + D3 Softgel] 2 each PO DAILY 10/23/17 [Last Taken Unknown] Fluticasone Propionate [Flovent Diskus] 1 spray IH BID 10/23/17 [Last Taken Unknown] Fluticasone Propionate [Flovent Diskus] 50 mcg IH BID 10/23/17 [Last Taken Unknown] Ipratropium/Albuterol Sulfate [Iprat-Albut 0.5-3(2.5) mg/3 ml] 3 ml IH QID 10/23/17 [Last Taken Unknown] Losartan Potassium [Cozaar] 100 mg PO DAILY 10/23/17 [Last Taken Unknown] Montelukast Sodium [Singulair] 10 mg PO QPM 10/23/17 [Last Taken Unknown] Ranitidine HCl [Acid Dixonac Operator] 150 mg PO BID PRN 10/23/17 [Last Taken Unknown] - History of Present Illness Narrative: Patient presents to the ED for SOB. This has been gradually worsening over the last couple of days, much worse today. Uses home oxygen at night. No chest pain, no fever. Has macario having increased cough wqith some productive sputum. SOB severe with exertion, now even at rest. he is not very fothcoming with questioning which makes getting a detailed Hx difficult. Severity: severe Treatment OIL DISPATCHER: by patient Initiating event: Reports: unknown Frequency of episodes: Reports: frequent episodes Modifying Factors - (Improves): Reports: nothing Modifying Factors (Worsens): Reports: other - exertion Associated Symptoms-Dyspnea: Reports: wheezing. Denies: fever/chills, chest pain/discomfort, ankle/leg swelling Prior Treatment: Denies: recently seen Review of Systems - Narrative Narrative: unable to obtain in entirety d/t patient condition Medical History (Last Reviewed 03/14/18 @ 19:36 by Nikunj Vargas MD) COPD (chronic obstructive pulmonary disease) DVT (deep venous thrombosis) Degenerative disc disease, lumbar Essential (primary) hypertension Surgical History: Surgical History (Last Reviewed 03/14/18 @ 19:36 by Nikunj Vargas MD) History of appendectomy History of colonoscopy Social History: Preferred Language Maltese Smoking Status Former smoker Abuse History No History of abuse Psych History Hx of Anxiety Alcohol Use none Drug Use none No Social History Section defined Physical Exam - Physical Exam General Appearance: Present: moderate distress Head Exam: Present: normal inspection, no evidence of injury Eye Exam: Normal inspection: bilateral, PERRL: bilateral Ears, Nose, Throat: Present: normal ENT inspection Neck: Present: normal inspection Respiratory: Present: respiratory distress, accessory muscle use, wheezing Cardiovascular/Chest: Present: regular rate, rhythm, normal peripheral pulses Gastrointestinal/Abdominal: Present: normal bowel sounds, nontender, soft Extremity Exam: Present: other - no DVT Sx Neurological Exam: Present: alert, no motor/sensory deficits Skin Exam: Present: normal color, warm/dry ED Progress - Results and Orders Patient's Lab Results:: I have reviewed the patient's lab results. - Vital Signs Patient's Vital Signs:: I have reviewed the patient's vital signs. Vital Signs: Vital Signs 03/14/18 16:53 03/14/18 17:26 03/14/18 17:37 Temperature 36.7 C Pulse Rate 96 98 104 H Respiratory Rate 22 H 24 H 28 H Blood Pressure 165/93 H 147/87 O2 Sat by Pulse Oximetry 81 L 94 96 03/14/18 18:49 03/14/18 19:04 03/14/18 19:08 Temperature Pulse Rate 93 93 93 Respiratory Rate 24 H 24 H 24 H Blood Pressure 155/111 H 143/94 H O2 Sat by Pulse Oximetry 93 94 94 - EKG EKG: NSR EKG read: Interp. by me EKG Comments: NSR rate 99. Non-specific changes, no STEMI - X-Ray X-Ray #1 X-Ray: chest Interpretation: Interp. by me X-ray Comments: No real-time radiology reads. No acute process by my interpretation - Progress/Reassessment Chief Complaint: Dyspnea Progress Note-Subjective: 03/14/18 19:26 patient was very tachypnic on arrival faint wheeze, I initially was going to place him on BiPAP but he refused this, states he cannot stand it. I placed him on continuos neb and that actually improved him a fair amount and his WOB decreased but still tachypnic. After a stella gdiscussion he will stay in the hospital and I feel this is appropriate given his severe underlying lung disease and as bad as he was on arrival. Still not back to baseline. D/W Dr Sibley who will admit obs. 03/14/18 19:37 Overall improved with continuous neb. Mild remaining tachypnea. Departure Clinical Impression: COPD exacerbation - Departure Disposition: Still a patient Condition: Fair Referrals: Lana Mccormick, PAC [Primary Care Provider] -
[2018-03-14] MEDS ORDERED: ALPRAZolam 0.25 MG TABLET PO PRN (20:12)
[2018-03-14] MEDS ORDERED: ALBUTEROL SULFATE 200 PUFF INHALER IH PRN (20:12)
[2018-03-14] MEDS ORDERED: ACETAMINOPHEN 325 MG TABLET PO PRN (20:20)
[2018-03-14] MEDS ORDERED: FAMOTIDINE 20 MG TABLET PO PRN (21:00)
[2018-03-14] MEDS ORDERED: DOXYCYCLINE HYCLATE 100 MG TABLET PO SCH (21:00)
[2018-03-14] MEDS ORDERED: FLUTICASONE PROPIONATE IH SCH (21:00)
[2018-03-14] MEDS ORDERED: ALBUTEROL SULFATE 2.5 MG/0.5 ML VIAL.NEB IH PRN (21:00)
[2018-03-14] MEDS ORDERED: FORMOTEROL FUMARATE 20 MCG/2 ML VIAL IH ONE (21:58)
[2018-03-14] MEDS: BUDESONIDE 0.5 MG/2 ML VIAL.NEB IH SCH (22:02)
[2018-03-14] MEDS: ALBUTEROL SULFATE/IPRATROPIUM 3 ML NEBU IH SCH (22:03)
[2018-03-15] MEDS ORDERED: ONDANSETRON HCL/PF 2 MG/ML VIAL IV ONE (05:09)
[2018-03-15] MEDS ORDERED: ONDANSETRON HCL/PF 2 MG/ML VIAL ONE (05:26)
[2018-03-15] MEDS: BUDESONIDE 0.5 MG/2 ML VIAL.NEB IH SCH (06:10)
[2018-03-15] MEDS: ALBUTEROL SULFATE/IPRATROPIUM 3 ML NEBU IH SCH ×2 (06:10→11:01)
--- NOTE | 2018-03-15 06:10 | HP ---
Chief Complaint - Chief Complaint Date of Service: 03/15/18 Time of Service: 06:05 Chief Complaint: shortness of breath History of Present Illness: Patient with longstanding COPD presented to the ED yesterday for more sudden onset SOB. He usually can keep it under control with his prescribed inhalers, but he said yesterday his symptoms came on too quick. He has an increased cough. Some improvement with a continuous neb in the ED, for approximately an hour. Denies fevers or lower extremity swelling. He has an appointment with a glass inserter at [place] tomorrow, and he and his were planning on leaving today. His breathing is somewhat improved from admission. Received 125 mg solumedrol and doxycycline, but vomited the doxy. Medical History (Last Reviewed 03/14/18 @ 20:31 by Estrellita Yanes RN) COPD (chronic obstructive pulmonary disease) DVT (deep venous thrombosis) Degenerative disc disease, lumbar Essential (primary) hypertension Surgical History: Surgical History (Last Reviewed 03/14/18 @ 20:31 by Estrellita Yanes RN) History of appendectomy History of colonoscopy Family History: Family History (Last Updated 03/14/18 @ 20:32 by Estrellita Yanes RN) Mother Cancer Father Alzheimers disease Other Unknown family medical history Social History: Patient Lives/Resources Home Utilized Occupation retired Preferred Language Luxembourgish Do you have any temple or No cultural preference? Smoking Status Former smoker Have you smoked in the past 12 No months Do you dip or chew tobacco No Abuse History No History of abuse Psych History Hx of Anxiety Alcohol Use none Drug Use none No Social History Section defined Review Of Systems (GEN) - Review of Systems Generalized/Overall Review: Absent: Fever Respiratory: Present: Cough, Shortness of Breath, Wheezing Cardiac: Absent: Chest Pain, Edema Abdominal: Present: Nausea, Vomiting Immunizations: IMMUNIZATION HX Immunizations Up to Date Yes History of Influenza Vaccine Yes Hx Pneumococcal Vaccination Yes Allergies/Adverse Reactions: Allergies Allergy/AdvReac Type Severity Reaction Status Date / Time aspirin Allergy Mild Hives Verified 03/14/18 16:56 Home Medications: HOME MEDICATIONS Carvedilol [Coreg] 25 mg PO BID 07/05/15 [Last Taken 03/14/18 09:00] Clopidogrel Bisulfate [Plavix] 75 mg PO DAILY 07/05/15 [Last Taken 03/14/18 09:00] Albuterol Sulfate [Albuterol Sulfate 2.5 MG/3 ML] 2.5 mg IH DAILY PRN 10/23/17 [Last Taken 03/14/18] Albuterol Sulfate [Proair Hfa] 2 puff IH QID PRN 10/23/17 [Last Taken 03/14/18 16:00] Alprazolam [Xanax] 0.25 mg PO BID PRN 10/23/17 [Last Taken 03/14/18 17:00] Arformoterol Tartrate [Brovana] 15 mcg IH BID 10/23/17 [Last Taken 03/14/18 16:00] Budesonide [Pulmicort Respules] 2 ml IH BID 10/23/17 [Last Taken 03/14/18 09:00] Fluticasone Propionate [Flovent Diskus] 1 spray IH BID 10/23/17 [Last Taken 03/14/18 09:00] Ipratropium/Albuterol Sulfate [Iprat-Albut 0.5-3(2.5) mg/3 ml] 3 ml IH QID 10/23/17 [Last Taken 03/14/18 17:00] Losartan Potassium [Cozaar] 100 mg PO DAILY 10/23/17 [Last Taken 03/14/18 09:00] Montelukast Sodium [Singulair] 10 mg PO QPM 10/23/17 [Last Taken 03/13/18 19:00] Ranitidine HCl [Acid Lap Checker] 150 mg PO BID PRN 10/23/17 [Last Taken Unknown] Exam - Exam Vital Signs: Vital Signs - Last Taken Temp 36.8 C 03/15/18 02:05 Pulse 89 03/15/18 03:00 Resp 20 03/15/18 03:00 BP 172/85 H 03/15/18 02:05 Pulse Ox 93 03/15/18 03:00 Constitutional: Present: Alert, Oriented x3, Cooperative, No distress Respiratory: Present: decreased breath sounds, accessory muscle use. Absent: No wheezing Cardiovascular/Chest: Present: regular rate, rhythm Abdomen: Present: soft, nontender Neurologic: Present: normal mood/affect Appearance: Present: appropriate insight Diagnostic Studies: Abnormal Lab Results 03/14/18 03/14/18 03/14/18 Range/Units 17:09 17:09 17:25 Hct 52.9 H (42.0-52.0) % MCHC 31.9 L (32-36) g/dl Immature Gran # (Auto) 0.04 H (0.000-0.0310) K/mm3 Neutrophils # 6.2 H (1.3-6.0) K/mm3 pCO2 60.1 H (35.0-48.0) mmHg HCO3 34.1 H (21.0-28.0) mmol/L Total CO2 36.0 H (19.0-24.0) mmol/L Base Excess 6.4 H (-2.0-3.0) mmol/L Carbon Dioxide 35.5 H (24-32.6) mmol/L Random Glucose 139 H (70-110) mg/dL Laboratory Results WBC 9.6 K/mm3 (4.0-10.5) 03/14/18 17:09 RBC 5.65 M/mm3 (4.7-6.0) 03/14/18 17:09 Hgb 16.9 gm/dL (13.5-18.0) 03/14/18 17:09 Hct 52.9 % (42.0-52.0) H 03/14/18 17:09 MCV 93.6 fl (78-100) 03/14/18 17:09 MCH 29.9 pg (27-31) 03/14/18 17:09 MCHC 31.9 g/dl (32-36) L 03/14/18 17:09 RDW 13.8 % (11.5-14.0) 03/14/18 17:09 Plt Count 244 K/mm3 (150-450) 03/14/18 17:09 MPV 10.5 fl (8-11.3) 03/14/18 17:09 Immature Gran % (Auto) 0.40 % (0.001-0.429) 03/14/18 17:09 Immature Gran # (Auto) 0.04 K/mm3 (0.000-0.0310) H 03/14/18 17:09 Neutrophils % 65.4 % (42-75.0) 03/14/18 17:09 Lymphocytes % 24.9 % (20-51) 03/14/18 17:09 Monocytes % 7.1 % (0.0-9) 03/14/18 17:09 Eosinophils % 1.6 % (0.0-3.0) 03/14/18 17:09 Basophils % 0.6 % (0.0-1.0) 03/14/18 17:09 Nucleated RBC % 0.0 k/mm3 (0-1) 03/14/18 17:09 Neutrophils # 6.2 K/mm3 (1.3-6.0) H 03/14/18 17:09 Lymphocytes # 2.38 k/mm3 (1.5-3.5) 03/14/18 17:09 Monocytes # 0.7 k/mm3 (0.0-1.0) 03/14/18 17:09 Eosinophils # 0.2 k/mm3 (0.0-0.7) 03/14/18 17:09 Absolute Basophils 0.1 k/mm3 (0.0-0.1) 03/14/18 17:09 pCO2 60.1 mmHg (35.0-48.0) H 03/14/18 17:25 pO2 88.0 mmHg (83.0-108.0) 03/14/18 17:25 HCO3 34.1 mmol/L (21.0-28.0) H 03/14/18 17:25 Total CO2 36.0 mmol/L (19.0-24.0) H 03/14/18 17:25 Base Excess 6.4 mmol/L (-2.0-3.0) H 03/14/18 17:25 ABG pH 7.37 (7.35-7.45) 03/14/18 17:25 ABG O2 Sat (Measured) 96.3 % (94.0-98.0) 03/14/18 17:25 Sodium 140 mmol/L (132-142) 03/14/18 17:09 Plasma Sodium 141 mmol/L (130-142) 03/14/18 17:09 Potassium 4.3 mmol/L (3.4-4.6) 03/14/18 17:09 Chloride 102 mmol/L (97-106) 03/14/18 17:09 Carbon Dioxide 35.5 mmol/L (24-32.6) H 03/14/18 17:09 Anion Gap 6.8 mmol/L (6.8-13.8) 03/14/18 17:09 BUN 14 mg/dL (6-23) 03/14/18 17:09 Creatinine 1.21 mg/dL (0.4-1.4) 03/14/18 17:09 Est GFR (Non-Af Amer) 64 mL/min (60-130) 03/14/18 17:09 BUN/Creatinine Ratio 11.6 (9.0-21.6) 03/14/18 17:09 Random Glucose 139 mg/dL (70-110) H 03/14/18 17:09 Calcium 9.2 mg/dL (7.9-10.9) 03/14/18 17:09 Calcium Adj for Albumin 9.1 mg/dL (8.4-10.2) 03/14/18 17:09 Total Bilirubin 0.4 mg/dL (0.0-1.1) 03/14/18 17:09 AST 17 U/L (0-48) 03/14/18 17:09 ALT 26 U/L (19-67) 03/14/18 17:09 Alkaline Phosphatase 51 U/L (50-170) 03/14/18 17:09 Troponin I Less than 0.017 ng/mL (0.00-0.10) 03/15/18 05:15 Total Protein 7.1 gm/dL (6.2-8.2) 03/14/18 17:09 Albumin 3.7 gm/dl (3.4-5.0) 03/14/18 17:09 Assessment/Plan - Assessment/Plan (1) Acute exacerbation of chronic obstructive pulmonary disease (COPD) Assessment: Improvement from admission. ABG showed some increased CO2 retention from previous, up to 60. pH of 7.37 and pO2 of 88. He uses 3 L O2 at night, and is currently as his baseline O2 requirements. He has received duoneb, pulmicort, and perforomist this morning. Patient has significant COPD at baseline, and is on numerous pulmonary meds, scheduled to see pulmonology at [place] tomorrow. Received a dose of doxycycline last night, but vomited it. Also received 125 mg solumedrol. Chart review shows he has done well with decadron in the past, and will start that. Will change to azithromycin from doxycycline. He is understandably adamant about making his [place] appointment, so will discharge today. Troponins have been negative. No signs of ischemia or infarct on EKGs. Problem: Acute (2) Obstructive sleep apnea Assessment: Declined BiPAP in the ED. Problem: Chronic
--- NOTE | 2018-03-15 06:55 | DS ---
(1) Acute exacerbation of chronic obstructive pulmonary disease (COPD) Problem: Resolved (2) Obstructive sleep apnea Problem: Chronic Description of Stay: Patient with fairly significant COPD presented to the ED with more severe shortness of breath, unable to be controlled with his home meds. ABG showed some mildly increased CO2 retention from his baseline, but pO2 and pH were normal. WBC not elevated. He was given 125 mg solumedrol and an hour of continuous nebulizer treatments with some improvement in his breathing. Negative troponins, and no changes on EKG. He was given doxycycline for COPD exacerbation, but vomited it, and was subsequently changed to azithromycin. PO decadron started. He was adamant about leaving the morning after admission because he has an appointment with a space and missile operations at [place] on 03/16. He was walked without oxygen, and his saturations went down to 84%. He stayed in the 9091% on 2 L oxygen with ambulation, and it is recommended he continue 2 L at all times. It was felt he had improved enough to leave the hospital for that appointment, and he felt safe leaving. Procedures Performed: none Results and Findings: Lab Pending Results 03/14/18 17:09: WBC 9.6, RBC 5.65, Hgb 16.9, Hct 52.9 H, MCV 93.6, MCH 29.9, MCHC 31.9 L, RDW 13.8, Plt Count 244, MPV 10.5, Immature Gran % (Auto) 0.40, Immature Gran # (Auto) 0.04 H, Neutrophils % 65.4, Lymphocytes % 24.9, Monocytes % 7.1, Eosinophils % 1.6, Basophils % 0.6, Nucleated RBC % 0.0, Neutrophils # 6.2 H, Lymphocytes # 2.38, Monocytes # 0.7, Eosinophils # 0.2, Absolute Basophils 0.1 03/14/18 17:09: Sodium 140, Plasma Sodium 141, Potassium 4.3, Chloride 102, Carbon Dioxide 35.5 H, Anion Gap 6.8, BUN 14, Creatinine 1.21, Est GFR (Non-Af Amer) 64, BUN/Creatinine Ratio 11.6, Random Glucose 139 H, Calcium 9.2, Calcium Adj for Albumin 9.1, Total Bilirubin 0.4, AST 17, ALT 26, Alkaline Phosphatase 51, Total Protein 7.1, Albumin 3.7 03/14/18 17:09: Troponin I Less than 0.017 03/14/18 17:25: pCO2 60.1 H, pO2 88.0, HCO3 34.1 H, Total CO2 36.0 H, Base Excess 6.4 H, ABG pH 7.37, ABG O2 Sat (Measured) 96.3 03/15/18 05:15: Troponin I Less than 0.017 Discharge Location: Home Disposition: Home self-care Condition: Fair Discharge Activity: Activity as tolerated Discharge Diet: General/regular food Referrals: Lana Mccormick, GINA [Primary Care Provider] - Problem Oriented Discharge Instructions to Patient/Family: Chronic Obstructive Pulmonary Disease Exacerbation, [id number] Additional Patient Instructions (free text): Follow up appointment with Lana Mccormick on 03/24/18 at 1:30pm. Prescriptions (Any new or edited meds): Azithromycin [Zithromax] 250 mg PO DAILY #4 tablet Dexamethasone [Decadron] 4 mg PO DAILY #5 tablet Complete Home Medications List: Complete Home Medication List: Carvedilol [Coreg] 25 mg PO BID 07/05/15 Clopidogrel Bisulfate [Plavix] 75 mg PO DAILY 07/05/15 Albuterol Sulfate [Albuterol Sulfate 2.5 MG/3 ML] 2.5 mg IH DAILY PRN 10/23/17 Albuterol Sulfate [Proair Hfa] 2 puff IH QID PRN 10/23/17 Alprazolam [Xanax] 0.25 mg PO BID PRN 10/23/17 Arformoterol Tartrate [Brovana] 15 mcg IH BID 10/23/17 Budesonide [Pulmicort Respules] 2 ml IH BID 10/23/17 Fluticasone Propionate [Flovent Diskus] 1 spray IH BID 10/23/17 Ipratropium/Albuterol Sulfate [Iprat-Albut 0.5-3(2.5) mg/3 ml] 3 ml IH QID 10/23/17 Losartan Potassium [Cozaar] 100 mg PO DAILY 10/23/17 Montelukast Sodium [Singulair] 10 mg PO QPM 10/23/17 Ranitidine HCl [Acid Footwear Sales Associate] 150 mg PO BID PRN 10/23/17 Azithromycin [Zithromax] 250 mg PO DAILY #4 tablet 03/15/18 Dexamethasone [Decadron] 4 mg PO DAILY #5 tablet 03/15/18
[2018-03-15] MEDS ORDERED: AZITHROMYCIN 250 MG TABLET PO ONE (07:00)
[2018-03-15] MEDS ORDERED: FORMOTEROL FUMARATE 20 MCG/2 ML VIAL IH SCH (07:00)
[2018-03-15] MEDS ORDERED: DEXAMETHASONE 4 MG TABLET PO SCH (09:00)
[2018-03-15] MEDS ORDERED: LOSARTAN POTASSIUM 50 MG TABLET PO SCH (09:00)
[2018-03-15] MEDS ORDERED: CARVEDILOL 25 MG TABLET PO SCH (09:00)
[2018-03-15] MEDS ORDERED: CLOPIDOGREL BISULFATE 75 MG TABLET PO SCH (09:00)
[2018-03-15 12:17] VITALS: BP 144/87
[2018-03-15] MEDS ORDERED: MONTELUKAST SODIUM 10 MG TABLET PO SCH (17:00)
== END 2018-03-15 12:17 | disposition home or self-care (01) ==
LOC: ER 16:48 → MS 16:48
PROVIDERS: ADMIT Family Medicine; ATTEND Family Medicine
CPT/HCPCS: 36415; 36600; 71010; 71045; 80053; 82803; 84484; 85025; 90686; 93005; 94640; 94664; 94760; 96374; 96375; 99284; G0008; G0378; J2405

== ENCOUNTER 2018-04-22 15:12 | Observation (INO) | payer MEDICAID, MEDICARE ==
[2018-04-22] MEDS ORDERED: ALBUTEROL SULFATE/IPRATROPIUM 3 ML NEBU IH ONE ×2 (15:16→15:25)
[2018-04-22] MEDS ORDERED: METHYLPREDNISOLONE SOD SUCC/PF 40 MG/ML VIAL IV ONE (15:28)
--- NOTE | 2018-04-22 15:32 | ERNOTE ---
Dyspnea - General Presenting Symptoms: shortness of breath, wheezing Time Seen by Provider: 04/22/18 15:18 Source: patient - Immun/Allergies/Home Medications Immunizations: IMMUNIZATION HX Immunizations Up to Date Yes History of Influenza Vaccine Yes Hx Pneumococcal Vaccination Yes Allergies/Adverse Reactions: Allergies aspirin Allergy (Mild, Verified 04/22/18 15:20) Hives Home Medications: HOME MEDICATIONS Carvedilol [Coreg] 25 mg PO BID 07/05/15 [Last Taken 03/14/18 09:00] Clopidogrel Bisulfate [Plavix] 75 mg PO DAILY 07/05/15 [Last Taken 03/14/18 09:00] Albuterol Sulfate [Albuterol Sulfate 2.5 MG/3 ML] 2.5 mg IH DAILY PRN 10/23/17 [Last Taken 03/14/18] Albuterol Sulfate [Proair Hfa] 2 puff IH QID PRN 10/23/17 [Last Taken 03/14/18 16:00] Alprazolam [Xanax] 0.25 mg PO BID PRN 10/23/17 [Last Taken 03/14/18 17:00] Fluticasone Propionate [Flovent Diskus] 1 spray IH BID 10/23/17 [Last Taken 03/14/18 09:00] Ipratropium/Albuterol Sulfate [Iprat-Albut 0.5-3(2.5) mg/3 ml] 3 ml IH QID 10/23/17 [Last Taken 03/14/18 17:00] Losartan Potassium [Cozaar] 100 mg PO DAILY 10/23/17 [Last Taken 03/14/18 09:00] Montelukast Sodium [Singulair] 10 mg PO QPM 10/23/17 [Last Taken 03/13/18 19:00] Ranitidine HCl [Acid Systems Management Consultant] 150 mg PO BID PRN 10/23/17 [Last Taken Unknown] Calcium Carbonate/Vitamin D3 [Calcarb 600 With Vitamin D] 1 tab PO DAILY 04/18/18 [Last Taken Unknown] Levofloxacin [Levaquin] 500 mg PO DAILY 7 Days #7 tablet 04/18/18 [Last Taken Unknown] - History of Present Illness Narrative: While the patient has chronic shortness of breath from his COPD, he is continuing to have wheezing and 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 Patient presents here for further testing and evaluation and treatment as needed.. He rates his symptoms as at least moderate in severity. Patient was treated for his severe COPD when he was here over the weekend, however he has continued to deteriorate throughout the week and is now barely able to walk 5 feet without being profoundly short of breath. 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 Initiating event: Reports: none Frequency of episodes: Reports: frequent episodes Modifying Factors - (Improves): Reports: albuterol Modifying Factors (Worsens): Reports: activity Associated Symptoms-Dyspnea: Reports: wheezing Prior Treatment: Reports: recently seen, treated by physician Review of Systems - Review of Systems Constitutional: Present: See HPI EYE: Present: no symptoms reported ENT: Present: no symptoms reported Respiratory: Present: See HPI Cardiology: Present: no symptoms reported Gastrointestinal/Abdominal: Present: no symptoms reported Genitourinary: Present: no symptoms reported Musculoskeletal: Present: no symptoms reported Skin: Present: no symptoms reported Neurological: Present: no symptoms reported Endocrine: Present: no symptoms reported Hematologic/Lymphatic: Present: no symptoms reported Psych: Present: no symptoms reported Medical History (Last Reviewed 04/22/18 @ 15:44 by Fernanda Arrington RN) COPD (chronic obstructive pulmonary disease) DVT (deep venous thrombosis) Degenerative disc disease, lumbar Essential (primary) hypertension Surgical History: Surgical History (Last Reviewed 04/22/18 @ 15:44 by Fernanda Arrington RN) History of appendectomy History of colonoscopy Family History: Family History (Last Reviewed 04/22/18 @ 15:44 by Fernanda Arrington RN) Mother Cancer Father Alzheimers disease Other Unknown family medical history Social History: Preferred Language Macedonian Do you have any sikhism or No cultural preference? Smoking Status Former smoker Have you smoked in the past 12 No months Do you dip or chew tobacco No Abuse History No History of abuse Psych History Hx of Anxiety Alcohol Use none Drug Use none No Social History Section defined Physical Exam - Physical Exam General Appearance: Present: wd/wn, alert, moderate distress, severe distress Head Exam: Present: normal inspection, no evidence of injury Eye Exam: Normal inspection: bilateral, PERRL: bilateral Ears, Nose, Throat: Present: normal ENT inspection, H, normal pharynx Neck: Present: normal inspection, nontender Respiratory: Present: chest nontender, respiratory distress, accessory muscle use, decreased breath sounds, wheezing Cardiovascular/Chest: Present: no murmur, normal peripheral pulses, tachycardia Gastrointestinal/Abdominal: Present: normal bowel sounds, nontender, nondistended, soft, no organomegaly Rectal Exam: Present: deferred Back Exam: Present: normal inspection, normal range of motion Extremity Exam: Present: normal inspection, non-tender, no edema, normal range of motion Neurological Exam: Present: alert, oriented, normal mood/affect Skin Exam: Present: normal color, warm/dry Lymphatic Exam: Present: no adenopathy Progress - Results and Orders Patient's Lab Results:: I have reviewed the patient's lab results. - Vital Signs Patient's Vital Signs:: I have reviewed the patient's vital signs. Vital Signs: Vital Signs 04/22/18 15:16 Temperature 36.5 C Pulse Rate 105 H Respiratory Rate 19 Blood Pressure 183/90 H O2 Sat by Pulse Oximetry 96 - EKG EKG: RBBB, other - Sinus tachycardia - X-Ray X-Ray #1 X-Ray: chest Interpretation: Reviewed by me - CT/Ultrasound CT/Ultrasound Narrative: CT of the chest reviewed by me - Progress/Reassessment Chief Complaint: Dyspnea Progress:: Unchanged - Transfer of Care Expected Disposition: Admit Plan - Plan Plan: Despite fairly aggressive outpatient treatment and treatment here in the emergency department the patient has failed to improve substantially. He still is hypoxic when he takes off the O2 and I am worried that he may go into respiratory failure if we do not bring him in the hospital and try a little more aggressive pulmonary toilet on him. We did discuss all the abnormal findings that were present on the CT of the chest, including the coronary artery disease, a pulmonary nodule and adrenal adenoma. 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 Departure Clinical Impression: COPD exacerbation, Acute exacerbation of chronic bronchitis - Departure Disposition: Still a patient Condition: Fair Referrals: Lana Mccormick PAC [Primary Care Provider] -
[2018-04-22] MEDS ORDERED: METHYLPREDNISOLONE SOD SUCC/PF 125 MG/2 ML VIAL IV ONE (15:35)
[2018-04-22 15:53] LABS: Hematocrit 49.9 % (42.0-52.0); Hemoglobin 15.6 gm/dL (13.5-18.0); Mean Corpuscular Hemoglobin 29.4 pg (27-31); Mean Corpuscular Hgb Conc 31.3 g/dl (32-36); Neutrophil # 5.8 K/mm3 (1.3-6.0); Neutrophil % 72.6 % (42-75.0); Platelet Count 197 K/mm3 (150-450); Red Blood Count 5.31 M/mm3 (4.7-6.0); Red Cell Distribution Width 13.4 % (11.5-14.0)
[2018-04-22 16:14] LABS: Albumin * 3.1 gm/dl (3.4-5.0); Anion Gap 4.6 mmol/L (6.8-13.8); Bilirubin, Total 0.3 mg/dL (0.0-1.1); Ca. Corrected For Albumin 9.4 mg/dL (8.4-10.2); Carbon Dioxide 41.3 mmol/L (24-32.6); Potassium 3.9 mmol/L (3.4-4.6); Total Protein 6.3 gm/dL (6.2-8.2); Troponin I 0.02 ng/mL (0.00-0.10)
[2018-04-22 16:34] LABS: Prothrombin Time (Patient) 9.6 Seconds (9.0-11.0)
[2018-04-22 16:38] LABS: INR 0.96 INR (0.90-1.10); Partial Thrombolplastin Time 24.2 Seconds (24-32)
[2018-04-22] MEDS ORDERED: ALBUTEROL SULFATE 200 PUFF INHALER IH PRN (20:57)
[2018-04-22] MEDS ORDERED: hydrALAZINE HCL 20 MG/ML VIAL IV PRN (21:00)
[2018-04-22] MEDS ORDERED: ALBUTEROL SULFATE 2.5 MG/0.5 ML VIAL.NEB IH ONE (21:06)
[2018-04-22] MEDS: ALBUTEROL SULFATE/IPRATROPIUM 3 ML NEBU IH SCH (21:08)
[2018-04-22] MEDS ORDERED: FAMOTIDINE 20 MG TABLET PO PRN (21:30)
[2018-04-22] MEDS ORDERED: ALBUTEROL SULFATE 2.5 MG/0.5 ML VIAL.NEB IH PRN (21:30)
[2018-04-22] MEDS: CARVEDILOL 25 MG TABLET PO SCH (21:46)
[2018-04-22] MEDS: ALPRAZolam 0.25 MG TABLET PO PRN (21:46)
[2018-04-22] MEDS: BUDESONIDE 0.5 MG/2 ML VIAL.NEB IH SCH (23:24)
--- NOTE | 2018-04-22 23:51 | HP ---
Chief Complaint - Chief Complaint Date of Service: 04/22/18 Time of Service: 23:51 Chief Complaint: SOB, PANDYA History of Present Illness: 67 year old CM with hx of end stage COPD returns to the hospital for worsening shortness of breath, productive cough, and decreased o2 sats. He was seen here on Thursday (4 days earlier) for the same issue and was dx with a COPD exacerbation and discharged home with levaquin and prednisone. He states that he has been compliant with his home treatment as well as what he was sent home on. He states that he never got any improvement and so returned today. He endorses SOB, wheezing, cough. ABG from the ER shows a respiratory acidotic state with appropriate metabolic compensation (normal pH). CT scan of the chest shows possible infectious vs inflammatory process in RML. He is on levaquin and has been on it since thursday. Other findings are not new per the patient. He has a normal WBC. Patient has been sating well since arrival to the floor, ranging from 93-96%. He has received breathing txs which is helping. He PMHx includes HTN, COPD, lumbar DDD. 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 Smoking Status Former smoker Have you smoked in the past 12 No months Do you dip or chew tobacco No Abuse History No History of abuse Psych History Hx of Anxiety Alcohol Use none Drug Use none No Social History Section defined Review Of Systems (GEN) - Review of Systems Generalized/Overall Review: Present: Fatigue. Absent: Chills, Fever EENTM: Present: No Symptoms Reported Respiratory: Present: Cough, Shortness of Breath, Wheezing Cardiac: Absent: Chest Pain, Edema Abdominal: Absent: Nausea, Vomiting Genitourinary: Present: No Symptoms Reported Musculoskeletal: Present: Back Pain Neurological: Present: Anxiety, Depressed Skin: Present: No Symptoms Reported Endocrine: Present: No Symptoms Reported Misc: All systems neg except as marked Immunizations: IMMUNIZATION HX Immunizations Up to Date Yes History of Influenza Vaccine Yes Hx Pneumococcal Vaccination Yes Allergies/Adverse Reactions: Allergies Allergy/AdvReac Type Severity Reaction Status Date / Time aspirin Allergy Mild Hives Verified 04/22/18 15:20 Home Medications: HOME MEDICATIONS Carvedilol [Coreg] 25 mg PO BID 07/05/15 [Last Taken 03/14/18 09:00] Clopidogrel Bisulfate [Plavix] 75 mg PO DAILY 07/05/15 [Last Taken 03/14/18 09:00] Albuterol Sulfate [Albuterol Sulfate 2.5 MG/3 ML] 2.5 mg IH DAILY PRN 10/23/17 [Last Taken 03/14/18] Albuterol Sulfate [Proair Hfa] 2 puff IH QID PRN 10/23/17 [Last Taken 03/14/18 16:00] Alprazolam [Xanax] 0.25 mg PO BID PRN 10/23/17 [Last Taken 03/14/18 17:00] Fluticasone Propionate [Flovent Diskus] 1 spray IH BID 10/23/17 [Last Taken 03/14/18 09:00] Ipratropium/Albuterol Sulfate [Iprat-Albut 0.5-3(2.5) mg/3 ml] 3 ml IH QID 10/23/17 [Last Taken 03/14/18 17:00] Losartan Potassium [Cozaar] 100 mg PO DAILY 10/23/17 [Last Taken 03/14/18 09:00] Montelukast Sodium [Singulair] 10 mg PO QPM 10/23/17 [Last Taken 03/13/18 19:00] Ranitidine HCl [Acid Telemetry Registered Nurse] 150 mg PO BID PRN 10/23/17 [Last Taken Unknown] Calcium Carbonate/Vitamin D3 [Calcarb 600 With Vitamin D] 1 tab PO DAILY 04/18/18 [Last Taken Unknown] Levofloxacin [Levaquin] 500 mg PO DAILY 7 Days #7 tablet 04/18/18 [Last Taken Unknown] Exam - Exam Vital Signs: Vital Signs - Last Taken Temp 36.1 C 04/22/18 19:09 Pulse 86 04/22/18 23:34 Resp 24 H 04/22/18 23:34 BP 184/96 H 04/22/18 21:46 Pulse Ox 96 04/22/18 23:24 Constitutional: Present: Alert, Oriented x3, Cooperative, Mild distress - respiratory distress, Overweight ENT Exam: Present: hearing grossly normal, pharynx normal. Absent: nasal congestion Eye Exam: bilateral eye: normal inspection, EOMI Neck: Present: non-tender, full range of motion, supple Back Exam: Present: no CVA tenderness, no vertebral tenderness Respiratory: Present: lungs clear, decreased breath sounds - poor air movement in lower lobes bilat.. Absent: normal breath sounds, crackles, rhonchi, stridor, wheezing Cardiovascular/Chest: Present: normal peripheral pulses, regular rate, rhythm, no edema Abdomen: Present: Normal bowel sounds, soft, nontender /Rectal: Present: Exam deferred Skin Exam: Present: normal color, warm/dry, no cyanosis Neurologic: Present: alert, normal mood/affect, oriented x 3 Appearance: Present: appropriate appearance, appropriate insight Eye contact: Present: cooperative, good eye contact, normal speech Thoughts: Present: normal thought pattern, normal mood /affect Diagnostic Studies: Abnormal Lab Results 04/22/18 04/22/18 04/22/18 Range/Units 15:45 15:45 15:45 MCHC 31.3 L (32-36) g/dl Immature Gran % (Auto) 1.00 H (0.001-0.429) % Immature Gran # (Auto) 0.08 H (0.000-0.0310) K/mm3 Lymphocytes % 17.2 L (20-51) % Lymphocytes # 1.38 L (1.5-3.5) k/mm3 D-Dimer 0.58 H (0.19-0.49) ug/mL pCO2 (35.0-48.0) mmHg HCO3 (21.0-28.0) mmol/L Total CO2 (19.0-24.0) mmol/L Base Excess (-2.0-3.0) mmol/L Carbon Dioxide 41.3 H (24-32.6) mmol/L Anion Gap 4.6 L (6.8-13.8) mmol/L Random Glucose 128 H (70-110) mg/dL Alkaline Phosphatase 43 L (50-170) U/L Albumin 3.1 L (3.4-5.0) gm/dl 04/22/18 Range/Units 16:00 MCHC (32-36) g/dl Immature Gran % (Auto) (0.001-0.429) % Immature Gran # (Auto) (0.000-0.0310) K/mm3 Lymphocytes % (20-51) % Lymphocytes # (1.5-3.5) k/mm3 D-Dimer (0.19-0.49) ug/mL pCO2 61.1 H (35.0-48.0) mmHg HCO3 33.7 H (21.0-28.0) mmol/L Total CO2 35.5 H (19.0-24.0) mmol/L Base Excess 6.0 H (-2.0-3.0) mmol/L Carbon Dioxide (24-32.6) mmol/L Anion Gap (6.8-13.8) mmol/L Random Glucose (70-110) mg/dL Alkaline Phosphatase (50-170) U/L Albumin (3.4-5.0) gm/dl Laboratory Results WBC 8.0 K/mm3 (4.0-10.5) 04/22/18 15:45 RBC 5.31 M/mm3 (4.7-6.0) 04/22/18 15:45 Hgb 15.6 gm/dL (13.5-18.0) 04/22/18 15:45 Hct 49.9 % (42.0-52.0) 04/22/18 15:45 MCV 94.0 fl (78-100) 04/22/18 15:45 MCH 29.4 pg (27-31) 04/22/18 15:45 MCHC 31.3 g/dl (32-36) L 04/22/18 15:45 RDW 13.4 % (11.5-14.0) 04/22/18 15:45 Plt Count 197 K/mm3 (150-450) 04/22/18 15:45 MPV 10.0 fl (8-11.3) 04/22/18 15:45 Immature Gran % (Auto) 1.00 % (0.001-0.429) H 04/22/18 15:45 Immature Gran # (Auto) 0.08 K/mm3 (0.000-0.0310) H 04/22/18 15:45 Neutrophils % 72.6 % (42-75.0) 04/22/18 15:45 Lymphocytes % 17.2 % (20-51) L 04/22/18 15:45 Monocytes % 8.1 % (0.0-9) 04/22/18 15:45 Eosinophils % 0.6 % (0.0-3.0) 04/22/18 15:45 Basophils % 0.5 % (0.0-1.0) 04/22/18 15:45 Nucleated RBC % 0.0 k/mm3 (0-1) 04/22/18 15:45 Neutrophils # 5.8 K/mm3 (1.3-6.0) 04/22/18 15:45 Lymphocytes # 1.38 k/mm3 (1.5-3.5) L 04/22/18 15:45 Monocytes # 0.7 k/mm3 (0.0-1.0) 04/22/18 15:45 Eosinophils # 0.1 k/mm3 (0.0-0.7) 04/22/18 15:45 Absolute Basophils 0.0 k/mm3 (0.0-0.1) 04/22/18 15:45 PT 9.6 Seconds (9.0-11.0) 04/22/18 15:45 INR (Anticoag Therapy) 0.96 INR (0.90-1.10) 04/22/18 15:45 PTT (Asha) 24.2 Seconds (24-32) 04/22/18 15:45 D-Dimer 0.58 ug/mL (0.19-0.49) H 04/22/18 15:45 pCO2 61.1 mmHg (35.0-48.0) H 04/22/18 16:00 pO2 106.7 mmHg (83.0-108.0) 04/22/18 16:00 HCO3 33.7 mmol/L (21.0-28.0) H 04/22/18 16:00 Total CO2 35.5 mmol/L (19.0-24.0) H 04/22/18 16:00 Base Excess 6.0 mmol/L (-2.0-3.0) H 04/22/18 16:00 ABG pH 7.36 (7.35-7.45) 04/22/18 16:00 ABG O2 Sat (Measured) 97.6 % (94.0-98.0) 04/22/18 16:00 Sodium 142 mmol/L (132-142) 04/22/18 15:45 Plasma Sodium 142 mmol/L (130-142) 04/22/18 15:45 Potassium 3.9 mmol/L (3.4-4.6) 04/22/18 15:45 Chloride 100 mmol/L (97-106) 04/22/18 15:45 Carbon Dioxide 41.3 mmol/L (24-32.6) H 04/22/18 15:45 Anion Gap 4.6 mmol/L (6.8-13.8) L 04/22/18 15:45 BUN 12 mg/dL (6-23) 04/22/18 15:45 Creatinine 1.00 mg/dL (0.4-1.4) 04/22/18 15:45 Est GFR (Non-Af Amer) 79 mL/min (60-130) 04/22/18 15:45 BUN/Creatinine Ratio 12.0 (9.0-21.6) 04/22/18 15:45 Random Glucose 128 mg/dL (70-110) H 04/22/18 15:45 Calcium 9.0 mg/dL (7.9-10.9) 04/22/18 15:45 Calcium Adj for Albumin 9.4 mg/dL (8.4-10.2) 04/22/18 15:45 Total Bilirubin 0.3 mg/dL (0.0-1.1) 04/22/18 15:45 AST 18 U/L (0-48) 04/22/18 15:45 ALT 36 U/L (19-67) 04/22/18 15:45 Alkaline Phosphatase 43 U/L (50-170) L 04/22/18 15:45 Troponin I 0.020 ng/mL (0.00-0.10) 04/22/18 15:45 B-Natriuretic Peptide 132 pg/mL (5-350) 04/22/18 15:45 Total Protein 6.3 gm/dL (6.2-8.2) 04/22/18 15:45 Albumin 3.1 gm/dl (3.4-5.0) L 04/22/18 15:45 Assessment/Plan - Narrative Narrative: Patient received 125 mg solu-medrol in the ER. Will resume oral prednisone in the morning. He likely will need a longer treatment with taper vs the initial 40 mg q day. Recommend 60 mg x5, 40 x5, 20 x5, and 10 x4. Will continue neb tx q3 hrs prn. He is on a LAMA as well As a ICS, not on a LABA- would likely benefit from symbicort vs breo (or something similar pending his insurance). He also takes singulair. Continue levaquin. Continue O2 therapy, will titrate sats between 90-94%. His blood pressure is not currently well controlled, continue home meds as well as add PRN for pressures greater than 160 systolic. He currently denies any cardiac symptoms. Resume xanax for his anxiety 2/2 to air hunger/SOB. Not sure who his PCP is but he would likely benefit from a longer acting benzo like klonopin. - Assessment/Plan (1) Acute exacerbation of chronic obstructive pulmonary disease (COPD) Problem: Acute (2) COPD bronchitis Problem: Chronic (3) Hypertension Problem: Chronic Qualifiers: Hypertension type: essential hypertension Qualified Code(s): I10 - Ess ential (primary) hypertension
[2018-04-23] MEDS: ALBUTEROL SULFATE/IPRATROPIUM 3 ML NEBU IH SCH ×5 (06:02→17:59)
[2018-04-23] MEDS: BUDESONIDE 0.5 MG/2 ML VIAL.NEB IH SCH ×2 (06:04→18:02)
[2018-04-23] MEDS: CARVEDILOL 25 MG TABLET PO SCH ×2 (08:00→20:13)
[2018-04-23] MEDS: LOSARTAN POTASSIUM 50 MG TABLET PO SCH (08:00)
[2018-04-23] MEDS: predniSONE 20 MG TABLET PO SCH (08:00)
[2018-04-23] MEDS: ALPRAZolam 0.25 MG TABLET PO PRN (08:00)
[2018-04-23] MEDS: CLOPIDOGREL BISULFATE 75 MG TABLET PO SCH (08:00)
[2018-04-23] MEDS ORDERED: LEVOFLOXACIN 500 MG TABLET PO SCH (09:00)
--- NOTE | 2018-04-23 09:25 | PN ---
Subjective - Date and Time Seen Date: 04/23/18 Time: 09:24 Subjective Narrative: Patient reports his breathing is very similar to yesterday. Objective - Review of Systems Generalized/Overall Review: Denies: Fever Respiratory: Reports: Cough, Shortness of Breath, Wheezing Cardiac: Denies: Chest Pain, Edema Abdominal: Denies: Vomiting - Vitals Vitals: Last Vital Signs Temp 37.2 C 04/23/18 08:34 Pulse 77 04/23/18 08:36 Resp 24 H 04/23/18 08:38 BP 168/70 H 04/23/18 08:34 Pulse Ox 96 04/23/18 08:38 - Abnormal Lab Findings Abnormal Lab Findings: Abnormal Lab Results 04/22/18 04/22/18 04/22/18 Range/Units 15:45 15:45 15:45 MCHC 31.3 L (32-36) g/dl Immature Gran % (Auto) 1.00 H (0.001-0.429) % Immature Gran # (Auto) 0.08 H (0.000-0.0310) K/mm3 Lymphocytes % 17.2 L (20-51) % Lymphocytes # 1.38 L (1.5-3.5) k/mm3 D-Dimer 0.58 H (0.19-0.49) ug/mL pCO2 (35.0-48.0) mmHg HCO3 (21.0-28.0) mmol/L Total CO2 (19.0-24.0) mmol/L Base Excess (-2.0-3.0) mmol/L Carbon Dioxide 41.3 H (24-32.6) mmol/L Anion Gap 4.6 L (6.8-13.8) mmol/L Random Glucose 128 H (70-110) mg/dL Alkaline Phosphatase 43 L (50-170) U/L Albumin 3.1 L (3.4-5.0) gm/dl 04/22/18 Range/Units 16:00 MCHC (32-36) g/dl Immature Gran % (Auto) (0.001-0.429) % Immature Gran # (Auto) (0.000-0.0310) K/mm3 Lymphocytes % (20-51) % Lymphocytes # (1.5-3.5) k/mm3 D-Dimer (0.19-0.49) ug/mL pCO2 61.1 H (35.0-48.0) mmHg HCO3 33.7 H (21.0-28.0) mmol/L Total CO2 35.5 H (19.0-24.0) mmol/L Base Excess 6.0 H (-2.0-3.0) mmol/L Carbon Dioxide (24-32.6) mmol/L Anion Gap (6.8-13.8) mmol/L Random Glucose (70-110) mg/dL Alkaline Phosphatase (50-170) U/L Albumin (3.4-5.0) gm/dl - Exam Constitutional: Present: Alert, Oriented x3 Respiratory: Present: decreased breath sounds, wheezing Cardiovascular/Chest: Present: regular rate, rhythm Extremity: Absent: lower extremity edema Assessment/Plan - Problems/Diagnosis (1) Acute and chronic respiratory failure with hypercapnia Problem: Acute Narrative: Takes singulair, proair, and flovent at home. Seems to be not far from his baseline. He saw his package maker this week. Will try to wean his oxygen today, and could potentially leave this evening. Goals for his oxygenation are greater than 88%. Since he feels like his breathing has not improved from yesterday, will repeat troponin and EKG. (2) Hypertension Problem: Chronic Qualifiers: Hypertension type: essential hypertension Qualified Code(s): I10 - Essential (primary) hypertension Narrative: Continue home losartan. PRN hydralazine for systolic BP greater than 160. (3) Anxiety Problem: Chronic Narrative: Will try clonazepam for his anxiety, and assess if he has better results than with the xanax.
[2018-04-23] MEDS ORDERED: clonazePAM 0.5 MG TABLET PO PRN (10:04)
[2018-04-23] MEDS ORDERED: MORPHINE SULFATE 2 MG/ML DISP.SYRIN IV ONE (10:26)
[2018-04-23] MEDS: DOXYCYCLINE HYCLATE 100 MG TABLET PO SCH ×2 (10:38→20:14)
--- NOTE | 2018-04-23 11:31 | PN ---
Progess Note - Interim Date: 04/23/18 Time: : Narrative: 04/23/18 11:29 Patient complained of chest pain. EKG, troponin repeated. EKG automatic read stated acute AL, but there is no significant consecutive ST depression or elevated, and T waves are upright. Negative initial troponin. Called cardiology at [facility] for second opinion, and awaiting call back. He was administered one dose of 1 mg morphine, and will reassess this afternoon. Repeat troponin pending for 1300.
[2018-04-23] MEDS: ALBUTEROL SULFATE 2.5 MG/0.5 ML VIAL.NEB IH PRN ×3 (14:07→23:51)
[2018-04-23 16:20] LABS: Urine Bilirubin Negative (NEGATIVE); Urine Blood Negative /ul (NEGATIVE); Urine Ketone Negative (NEGATIVE); Urine Nitrite Negative (NEGATIVE); Urine Protein Negative (NEGATIVE); Urine Urobilinogen Normal (NORMAL)
[2018-04-23 16:30] LABS: Urine Appearance Clear (CLEAR); Urine Bacteria TRACE; Urine Color Pale Yellow; Urine RBC None Seen /hpf (0-5); Urine WBC None Seen /hpf (0-5)
[2018-04-23] MEDS ORDERED: ACETAMINOPHEN 500 MG TABLET PO PRN (16:46)
[2018-04-23] MEDS ORDERED: MONTELUKAST SODIUM 10 MG TABLET PO SCH (17:00)
[2018-04-23] MEDS ORDERED: BUTALB/ACETAMINOPHEN/CAFFEINE 1 TAB TABLET PO PRN (19:20)
[2018-04-23] MEDS ORDERED: IBUPROFEN 400 MG TABLET PO PRN (19:56)
[2018-04-23] MEDS: guaiFENesin 100 MG/5 ML BTL PO PRN (20:12)
[2018-04-24] MEDS: ALBUTEROL SULFATE/IPRATROPIUM 3 ML NEBU IH SCH ×2 (05:10→05:59)
[2018-04-24] MEDS: BUDESONIDE 0.5 MG/2 ML VIAL.NEB IH SCH ×2 (05:18→05:59)
[2018-04-24] MEDS: predniSONE 20 MG TABLET PO SCH (08:33)
[2018-04-24] MEDS: CLOPIDOGREL BISULFATE 75 MG TABLET PO SCH (08:33)
[2018-04-24] MEDS: CARVEDILOL 25 MG TABLET PO SCH (08:33)
[2018-04-24] MEDS: DOXYCYCLINE HYCLATE 100 MG TABLET PO SCH (08:34)
[2018-04-24] MEDS: LOSARTAN POTASSIUM 50 MG TABLET PO SCH (08:34)
[2018-04-24] MEDS: guaiFENesin 100 MG/5 ML BTL PO PRN (08:37)
[2018-04-24] MEDS ORDERED: DEXAMETHASONE SODIUM PHOSPHATE 4 MG/ML VIAL IV ONE (08:49)
[2018-04-24] MEDS ORDERED: ALBUTEROL SULFATE/IPRATROPIUM 3 ML NEBU IH PRN (08:49)
[2018-04-24] MEDS ORDERED: LEVOFLOXACIN 750 MG TABLET PO SCH (09:00)
--- NOTE | 2018-04-24 09:01 | DS ---
(1) Acute and chronic respiratory failure with hypercapnia Problem: Acute (2) Hypertension Problem: Chronic Qualifiers: Hypertension type: essential hypertension Qualified Code(s): I10 - Essential (primary) hypertension (3) Anxiety Problem: Chronic Description of Stay: Patient with PMHx of end stage COPD and multiple hospitalizations presented to the ED for increased shortness of breath. He was seen in our ED earlier in the week, and was prescribed levaquin and prednisone. He reports his had a viral upper respiratory illness in the past few weeks. ABG showed he was retaining some CO2, and oxygen was slightly low, improved within a few hours. CT Angio chest was negative for PE, and showed bronchiectasis and inflammation. WBC not elevated at 8.0. He was given 125 IV solumedrol, continued levaquin, and doxycycline was added. His oxygenation remained greater than 90% during admission. He complained of CP, and had negative troponins and EKGs negative for acute ischemia or infarct. He had only mild improvement in his shortness of breath, but no other acute findings were found. It was felt to be due to his end stage COPD, and concominant viral illness. However, he was treated for COPD exacerbation with levaquin, doxycycline, and steroids. Procedures Performed: none Results and Findings: Lab Pending Results 04/22/18 15:45: WBC 8.0, RBC 5.31, Hgb 15.6, Hct 49.9, MCV 94.0, MCH 29.4, MCHC 31.3 L, RDW 13.4, Plt Count 197, MPV 10.0, Immature Gran % (Auto) 1.00 H, Renita ture Gran # (Auto) 0.08 H, Neutrophils % 72.6, Lymphocytes % 17.2 L, Monocytes % 8.1, Eosinophils % 0.6, Basophils % 0.5, Nucleated RBC % 0.0, Neutrophils # 5.8, Lymphocytes # 1.38 L, Monocytes # 0.7, Eosinophils # 0.1, Absolute Basophils 0.0 04/22/18 15:45: Sodium 142, Plasma Sodium 142, Potassium 3.9, Chloride 100, Carbon Dioxide 41.3 H, Anion Gap 4.6 L, BUN 12, Creatinine 1.00, Est GFR (Non-Af Amer) 79, BUN/Creatinine Ratio 12.0, Random Glucose 128 H, Calcium 9.0, Calcium Adj for Albumin 9.4, Total Bilirubin 0.3, AST 18, ALT 36, Alkaline Phosphatase 43 L, Troponin I 0.020, B-Natriuretic Peptide 132, Total Protein 6.3, Albumin 3.1 L 04/22/18 15:45: D-Dimer 0.58 H 04/22/18 15:45: PT 9.6, INR (Anticoag Therapy) 0.96, PTT ([place]) 24.2 04/22/18 16:00: pCO2 61.1 H, pO2 106.7, HCO3 33.7 H, Total CO2 35.5 H, Base Excess 6.0 H, ABG pH 7.36, ABG O2 Sat (Measured) 97.6 04/23/18 10:14: Troponin I Less than 0.017 04/23/18 13:07: Troponin I Less than 0.017 04/23/18 13:07: Procalcitonin 0.05 04/23/18 16:00: Urine Color Pale yellow, Urine Appearance Clear, Urine pH 6.0, Ur Specific [place] 1.010, Urine Protein Negative, Urine Glucose (UA) Negative, Urine Ketones Negative, Urine Blood Negative, Urine Nitrate Negative, Urine Bilirubin Negative, Urine Urobilinogen Normal, Ur Leukocyte Esterase Negative, Urine RBC None seen, Urine WBC None seen, Ur Epithelial Cells None seen, Urine Bacteria Trace Discharge Location: Home Disposition: Home self-care Condition: Fair Discharge Activity: Activity as tolerated Discharge Diet: General/regular food Referrals: Lana Mccormick, PAC [Primary Care Provider] - Additional Patient Instructions (free text): -Please make TCM appointment unless usp discharge. Thank you! Lili @ [phone]. Complete Home Medications List: Complete Home Medication List: Carvedilol [Coreg] 25 mg PO BID 07/05/15 Clopidogrel Bisulfate [Plavix] 75 mg PO DAILY 07/05/15 Albuterol Sulfate [Albuterol Sulfate 2.5 MG/3 ML] 2.5 mg IH DAILY PRN 10/23/17 Albuterol Sulfate [Proair Hfa] 2 puff IH QID PRN 10/23/17 Alprazolam [Xanax] 0.25 mg PO BID PRN 10/23/17 Fluticasone Propionate [Flovent Diskus] 1 spray IH BID 10/23/17 Ipratropium/Albuterol Sulfate [Iprat-Albut 0.5-3(2.5) mg/3 ml] 3 ml IH QID 10/23/17 Losartan Potassium [Cozaar] 100 mg PO DAILY 10/23/17 Montelukast Sodium [Singulair] 10 mg PO QPM 10/23/17 Ranitidine HCl [Acid Sales Product Manager] 150 mg PO BID PRN 10/23/17 Calcium Carbonate/Vitamin D3 [Calcarb 600 With Vitamin D] 1 tab PO DAILY 04/18/18 Levofloxacin [Levaquin] 500 mg PO DAILY 7 Days #7 tablet 04/18/18
[2018-04-24 11:09] VITALS: BP 121/70
== END 2018-04-24 12:55 | disposition home or self-care (01) ==
LOC: MS 15:12 → ER 15:12 → MS 18:40
PROVIDERS: ADMIT Family Medicine; ATTEND Family Medicine
DX: J44.1 Chronic obstructive pulmonary disease with (acute) exacerbation
CPT/HCPCS: 36415; 36600; 71020; 71046; 71275; 80053; 81001; 82803; 83519; 83880; 84145; 84484; 85025; 85379; 85610; 85730; 93005; 94640; 94664; 94760; 96374; 96375; 99285; G0378

== ENCOUNTER 2018-08-08 12:25 | Inpatient (IN) ==
[2018-08-08] MEDS ORDERED: METHYLPREDNISOLONE SOD SUCC/PF 40 MG/ML VIAL IV ONE (12:33)
[2018-08-08] MEDS ORDERED: LEVOFLOXACIN 500 MG TABLET PO ONE (12:33)
[2018-08-08] MEDS ORDERED: ALBUTEROL SULFATE 2.5 MG/0.5 ML VIAL.NEB IH ONE (12:33)
--- NOTE | 2018-08-08 12:39 | ERNOTE ---
Dyspnea - Date Date of Service: 08/08/18 - General Presenting Symptoms: shortness of breath, difficulty of breathing Time Seen by Provider: 08/08/18 12:28 Source: patient, old records - Immun/Allergies/Home Medications Immunizations: IMMUNIZATION HX Immunizations Up to Date Yes History of Influenza Vaccine Yes Hx Pneumococcal Vaccination Yes Allergies/Adverse Reactions: Allergies aspirin Allergy (Mild, Verified 08/08/18 12:34) Hives Home Medications: HOME MEDICATIONS Carvedilol [Coreg] 25 mg PO BID 07/05/15 [Last Taken 03/14/18 09:00] Clopidogrel Bisulfate [Plavix] 75 mg PO DAILY 07/05/15 [Last Taken 03/14/18 09:00] Albuterol Sulfate [Albuterol Sulfate 2.5 MG/3 ML] 2.5 mg IH DAILY PRN 10/23/17 [Last Taken 03/14/18] Albuterol Sulfate [Proair Hfa] 2 puff IH QID PRN 10/23/17 [Last Taken 03/14/18 16:00] Alprazolam [Xanax] 0.25 mg PO BID PRN 10/23/17 [Last Taken 03/14/18 17:00] Fluticasone Propionate [Flovent Diskus] 1 spray IH BID 10/23/17 [Last Taken 03/14/18 09:00] Ipratropium/Albuterol Sulfate [Iprat-Albut 0.5-3(2.5) mg/3 ml] 3 ml IH QID 10/23/17 [Last Taken 03/14/18 17:00] Losartan Potassium [Cozaar] 100 mg PO DAILY 10/23/17 [Last Taken 03/14/18 09:00] Montelukast Sodium [Singulair] 10 mg PO QPM 10/23/17 [Last Taken 03/13/18 19:00] Ranitidine HCl [Acid Alcohol Rubber] 150 mg PO BID PRN 10/23/17 [Last Taken Unknown] Calcium Carbonate/Vitamin D3 [Calcarb 600 With Vitamin D] 1 tab PO DAILY 01/26 [Last Taken Unknown] Arformoterol Tartrate [Brovana] 15 mcg INHALATION BID 08/03/18 [Last Taken Unknown] Azithromycin 250 mg PO DAILY 08/03/18 [Last Taken Unknown] Glycopyrrol/Nebulizer/Accessor [Lonhala Magnair 25 Mcg Starter] 25 mcg INHALATION BID 08/03/18 [Last Taken Unknown] predniSONE [Prednisone] 3 tab PO DAILY 08/03/18 [Last Taken Unknown] - History of Present Illness Narrative: This is a 68-year-old gentleman with a history of severe COPD who comes to the emergency department with several days of worsening dyspnea. This dyspnea occurs at rest. He was seen in the hospital emergency room on the . He was diagnosed with COPD exacerbation and sent home. He was doing better when he was sent home. He says over the last 48 hours he has been getting worse. He has been using his oxygen more than just at night when it is supposed to be used. He has been taking his antibiotics and prednisone and using his inhalers. He says he is continuing to get worse. No chest pain, nausea, vomiting, diarrhea. Decreased appetite but he says that is because he cannot hardly breathe. No urinary symptoms. He is not really been able to cough anything up. No leg swelling. No other complaints Review of Systems - Review of Systems Constitutional: Present: no symptoms reported EYE: Present: no symptoms reported ENT: Present: no symptoms reported Respiratory: Present: See HPI, shortness of breath Cardiology: Present: no symptoms reported Gastrointestinal/Abdominal: Present: no symptoms reported Genitourinary: Present: no symptoms reported Musculoskeletal: Present: no symptoms reported Skin: Present: no symptoms reported Neurological: Present: no symptoms reported Endocrine: Present: no symptoms reported Hematologic/Lymphatic: Present: no symptoms reported Psych: Present: no symptoms reported All Other Systems: All systems neg except as marked Medical History (Last Reviewed 08/08/18 @ 12:35 by Muriel Medrano RN) COPD (chronic obstructive pulmonary disease) DVT (deep venous thrombosis) Degenerative disc disease, lumbar Essential (primary) hypertension Surgical History: Surgical History (Last Reviewed 08/08/18 @ 12:35 by Muriel Medrano RN) History of appendectomy History of colonoscopy Family History: Family History (Last Reviewed 08/08/18 @ 12:35 by Muriel Medrano RN) Mother Cancer Father Alzheimers disease Other Unknown family medical history Social History: Preferred Language Swazi Smoking Status Former smoker Abuse History No History of abuse Psych History Hx of Anxiety Alcohol Use rarely Drug Use none No Social History Section defined Physical Exam - Physical Exam General Appearance: Present: other - Patient is awake sitting on the side of the bed with rocking labored respirations. Able to only get one word at a time. Head Exam: Present: normal inspection, no evidence of injury Eye Exam: Normal inspection: bilateral Ears, Nose, Throat: Present: normal ENT inspection, other Neck: Present: normal inspection - Patient has dry membranes, nontender Respiratory: Present: other - Patient is in mild to moderate respiratory distress with accessory muscle use. Rocking type respirations. He appears hyperexpanded. Breath sounds are diminished throughout. Cardiovascular/Chest: Present: other - Patient is tachycardic. I do not hear any murmurs. Gastrointestinal/Abdominal: Present: normal bowel sounds, nontender, soft Back Exam: Present: normal range of motion, no vertebral tenderness Extremity Exam: Present: normal inspection, normal range of motion, no edema Neurological Exam: Present: alert, oriented, normal mood/affect, no motor/sensory deficits Skin Exam: Present: normal color, warm/dry Lymphatic Exam: Present: no adenopathy Progress - Results and Orders Patient's Lab Results:: I have reviewed the patient's lab results. - Vital Signs Patient's Vital Signs:: I have reviewed the patient's vital signs. Vital Signs: Vital Signs 08/08/18 12:31 Temperature 36.3 C Pulse Rate 113 H Respiratory Rate 38 H Blood Pressure 194/101 H O2 Sat by Pulse Oximetry 70 L - EKG EKG #1 EKG read: Interp. by me EKG Comments: Sinus tach ventricular rate of 107. Normal axis. WA interval is short being read out as 0.092. Significant artifact makes interpretation of leads V2 and V3 a bit difficult. There is no sign of ST elevation. Patient has an upsloping ST segments in the inferior leads. No reciprocal changes. - Progress/Reassessment Chief Complaint: Dyspnea Progress:: Improved Progress Note-Subjective: 08/08/18 13:27 Patient was placed on BiPAP initially on arrival due to his respiratory distress. We attempted to obtain arterial blood gas but were unsuccessful after 2 attempts. The patient is much more comfortable now and his saturations are 92-94% on an FiO2 of 30% by BiPAP. He has no fever, no leukocytosis, no cough and the chest x-ray does not show signs of an infiltrate. He has already received steroids and quinolone as well as breathing treatments. Due to the severity of his illness he will need to be kept in the hospital. Critical care time is going to be 35 minutes. I have spoken with Dr. Mcnamara who agrees to admit Departure Clinical Impression: Acute exacerbation of chronic obstructive pulmonary disease (COPD) - Departure Disposition: Still a patient Condition: Fair Referrals: Lana Mccormick, PAC [Primary Care Provider] -
[2018-08-08] MEDS ORDERED: METHYLPREDNISOLONE SOD SUCC/PF 125 MG/2 ML VIAL ONE (12:54)
[2018-08-08 13:00] LABS: Hematocrit 56.6 % (42.0-52.0); Mean Cell Volume 97.3 fl (78-100); Mean Corpuscular Hemoglobin 29.2 pg (27-31); Mean Platelet Volume 10.9 fl (8-11.3); Neutrophil # 3.7 K/mm3 (1.3-6.0); Neutrophil % 74.8 % (42-75.0); Platelet Count 164 K/mm3 (150-450); Red Blood Count 5.82 M/mm3 (4.7-6.0); Red Cell Distribution Width 13.3 % (11.5-14.0)
[2018-08-08] MEDS ORDERED: ONDANSETRON HCL/PF 2 MG/ML VIAL IV ONE (13:05)
[2018-08-08] MEDS ORDERED: ONDANSETRON HCL/PF 2 MG/ML VIAL ONE (13:05)
[2018-08-08 13:19] LABS: Albumin * 3.5 gm/dl (3.4-5.0); Anion Gap 9.5 mmol/L (6.8-13.8); BUN/Creatinine Ratio 21.9 (9.0-21.6); Bilirubin, Total 0.3 mg/dL (0.0-1.1); Ca. Corrected For Albumin 9.3 mg/dL (8.4-10.2); Calcium * 9.2 mg/dL (7.9-10.9); Potassium 4.5 mmol/L (3.4-4.6); Total Protein 7.1 gm/dL (6.2-8.2)
[2018-08-08 13:20] LABS: Troponin I 0.027 ng/mL (0.00-0.10)
[2018-08-08] MEDS ORDERED: LORazepam 2 MG/ML DISP.SYRIN IV ONE ×2 (13:42→16:14)
[2018-08-08] MEDS ORDERED: WATER FOR INJECTION,STERILE 20 ML VIAL ONE (13:45)
[2018-08-08] MEDS ORDERED: NON-FORMULARY 1 DOSE DOSE (Albuterol Sulfate [Albuterol Sulfate 2.5 Mg/3 Ml] 2.5 MG) IH PRN (14:00)
[2018-08-08] MEDS ORDERED: ALBUTEROL SULFATE 2.5 MG/0.5 ML VIAL.NEB IH PRN (14:00)
[2018-08-08] MEDS ORDERED: ALPRAZolam 0.25 MG TABLET PO PRN (14:00)
[2018-08-08] MEDS ORDERED: FAMOTIDINE 20 MG TABLET PO PRN (14:02)
[2018-08-08] MEDS ORDERED: MORPHINE SULFATE 2 MG/ML DISP.SYRIN IV ONE (14:29)
[2018-08-08] MEDS ORDERED: FUROSEMIDE 10 MG/ML VIAL IV ONE (14:30)
[2018-08-08] MEDS ORDERED: ALBUTEROL SULFATE/IPRATROPIUM 3 ML NEBU IH SCH (15:00)
--- NOTE | 2018-08-08 15:26 | HP ---
Chief Complaint - Chief Complaint Date of Service: 08/08/18 Time of Service: 15:10 Chief Complaint: dyspnea, tachypnea, fatigue, somnolence History of Present Illness: Forrest Sharpe is a 68-year-old male with a long-standing history of COPD. He presented to the emergency room in respiratory distress today. He was placed on BiPAP and seemed to be improving some. Blood gases were not obtained in the ER as they're unable to get an adequate draw. Once he arrived here he was on BiPAP settings of 12 and 6 and breathing at a rate of 48-52 breaths per minute. He is somnolent but is arousable and can answer yes and no questions. When he tries to speak he can only speak about one-word between breaths. His color is ashen. The skin is dry. His heart rate is 114 BPM. Blood pressure is normal. Blood gases obtained showed pH of 7.24 with a PCO2 of 89.9 and a total CO2 of 40.2. His PO2 is 52.1 and bicarbonate is 37.5. Presented to the ER last Thursday having respiratory difficulty. He was given breathing treatments, IV steroids, and was given the choice to be admitted or to go home since he had all the equipment at home to do breathing treatments with. He elected to go home. His states that he's been laboring to breathe for about the past 48 hours and has gotten more and more sleepy. His states that he used to be a long-term smoker but has not been a smoker for over 12 months. He is being intubated at this time and will be placed on a ventilator with PEEP to try to blow off some CO2. Since I am not privileged to do ventilator management yet and that I believe he needs a library director caring for him hives elected to transfer him. Since Dr. Quevedo is his library director I will try to transfer him to [facility] Medical History (Last Reviewed 08/08/18 @ 12:35 by Muriel Medrano RN) COPD (chronic obstructive pulmonary disease) DVT (deep venous thrombosis) Degenerative disc disease, lumbar Essential (primary) hypertension Surgical History: Surgical History (Last Reviewed 08/08/18 @ 12:35 by Muriel Medrano RN) History of appendectomy History of colonoscopy Family History: Family History (Last Reviewed 08/08/18 @ 12:35 by Muriel Medrano RN) Mother Cancer Father Alzheimers disease Other Unknown family medical history Social History: Patient Lives/Resources With Spouse Utilized Preferred Language Zambian Do you have any baptism or No cultural preference? Smoking Status Former smoker Have you smoked in the past 12 No months Abuse History No History of abuse Psych History Hx of Anxiety Alcohol Use rarely Drug Use none No Social History Section defined Review Of Systems (GEN) - Review of Systems Generalized/Overall Review: Present: Weakness, Fatigue EENTM: Present: No Symptoms Reported Respiratory: Present: Shortness of Breath, Wheezing, Other - tachypnea Cardiac: Present: No Symptoms Reported Abdominal: Present: No Symptoms Reported Genitourinary: Present: No Symptoms Reported Musculoskeletal: Present: No Symptoms Reported Neurological: Present: Weakness, Other - somnolence Skin: Present: No Symptoms Reported Endocrine: Present: No Symptoms Reported Immunizations: IMMUNIZATION HX Immunizations Up to Date Yes History of Influenza Vaccine Yes Hx Pneumococcal Vaccination Yes Allergies/Adverse Reactions: Allergies Allergy/AdvReac Type Severity Reaction Status Date / Time aspirin Allergy Mild Hives Verified 08/08/18 12:34 Home Medications: HOME MEDICATIONS Carvedilol [Coreg] 25 mg PO BID 07/05/15 [Last Taken 03/14/18 09:00] Clopidogrel Bisulfate [Plavix] 75 mg PO DAILY 07/05/15 [Last Taken 03/14/18 09:00] Albuterol Sulfate [Albuterol Sulfate 2.5 MG/3 ML] 2.5 mg IH DAILY PRN 10/23/17 [Last Taken 03/14/18] Albuterol Sulfate [Proair Hfa] 2 puff IH QID PRN 10/23/17 [Last Taken 03/14/18 16:00] Alprazolam [Xanax] 0.25 mg PO BID PRN 10/23/17 [Last Taken 03/14/18 17:00] Fluticasone Propionate [Flovent Diskus] 1 spray IH BID 10/23/17 [Last Taken 03/14/18 09:00] Ipratropium/Albuterol Sulfate [Iprat-Albut 0.5-3(2.5) mg/3 ml] 3 ml IH QID 10/23/17 [Last Taken 03/14/18 17:00] Losartan Potassium [Cozaar] 100 mg PO DAILY 10/23/17 [Last Taken 03/14/18 09:00] Montelukast Sodium [Singulair] 10 mg PO QPM 10/23/17 [Last Taken 03/13/18 19:00] Ranitidine HCl [Acid Representative Personal Service] 150 mg PO BID PRN 10/23/17 [Last Taken Unknown] Calcium Carbonate/Vitamin D3 [Calcarb 600 With Vitamin D] 1 tab PO DAILY 04/18/18 [Last Taken Unknown] Arformoterol Tartrate [Brovana] 15 mcg INHALATION BID 08/03/18 [Last Taken Unknown] Azithromycin 250 mg PO DAILY 08/03/18 [Last Taken Unknown] Glycopyrrol/Nebulizer/Accessor [Lonhala Magnair 25 Mcg Starter] 25 mcg INHALATION BID 08/03/18 [Last Taken Unknown] predniSONE [Prednisone] 3 tab PO DAILY 08/03/18 [Last Taken Unknown] Exam - Exam Vital Signs: Vital Signs - Last Taken Temp 36.6 C 08/08/18 14:23 Pulse 110 H 08/08/18 14:59 Resp 55 H 08/08/18 14:33 BP 147/85 08/08/18 14:59 Pulse Ox 89 L 08/08/18 14:33 Constitutional: Present: Cooperative, Well developed, Well nourished, Obese ENT Exam: Present: normal ENT inspection, hearing grossly normal, pharynx normal Eye Exam: bilateral eye: normal inspection, PERRL, EOMI Neck: Present: non-tender, full range of motion Back Exam: Present: normal inspection, no CVA tenderness, no vertebral tenderne ss Breasts: Present: Exam deferred Respiratory: Present: respiratory distress, decreased breath sounds, accessory muscle use, crackles, rales, expiration (prolonged), other - Tachypnea With respiratory rate of 48-52 Cardiovascular/Chest: Present: normal peripheral pulses, no gallop, tachycardia Peripheral Pulses: carotid (R): 2+, carotid (L): 2+, radial (R): 2+, radial (L): 2+ Abdomen: Present: Normal bowel sounds, soft, nontender, nondistended, no rebound tenderness, no hepatospenomegaly, no masses /Rectal: Present: Exam deferred Extremity: Present: normal range of motion Skin Exam: Present: pallor Lymphatic: Present: no adenopathy Neurologic: Present: other - Hypersomnolent Appearance: Present: appropriate appearance, neat, no memory impairment Eye contact: Present: cooperative, good eye contact Thoughts: Present: normal thought pattern, no apparent hallucination Diagnostic Studies: Abnormal Lab Results 08/08/18 08/08/18 08/08/18 Range/Units 12:41 12:41 14:43 Hct 56.6 H (42.0-52.0) % MCHC 30.0 L (32-36) g/dl Lymphocytes % 9.9 L (20-51) % Monocytes % 14.5 H (0.0-9) % Lymphocytes # 0.49 L (1.5-3.5) k/mm3 pCO2 89.9 H* (35.0-48.0) mmHg pO2 52.1 L (83.0-108.0) mmHg HCO3 37.5 H (21.0-28.0) mmol/L Total CO2 40.2 H (19.0-24.0) mmol/L Base Excess 5.8 H (-2.0-3.0) mmol/L ABG pH 7.24 L (7.35-7.45) ABG O2 Sat (Measured) 78.6 L (94.0-98.0) % Chloride 96 L (97-106) mmol/L Carbon Dioxide 39.0 H (24-32.6) mmol/L BUN/Creatinine Ratio 21.9 H (9.0-21.6) Laboratory Results WBC 5.0 K/mm3 (4.0-10.5) 08/08/18 12:41 RBC 5.82 M/mm3 (4.7-6.0) 08/08/18 12:41 Hgb 17.0 gm/dL (13.5-18.0) 08/08/18 12:41 Hct 56.6 % (42.0-52.0) H 08/08/18 12:41 MCV 97.3 fl (78-100) 08/08/18 12:41 MCH 29.2 pg (27-31) 08/08/18 12:41 MCHC 30.0 g/dl (32-36) L 08/08/18 12:41 RDW 13.3 % (11.5-14.0) 08/08/18 12:41 Plt Count 164 K/mm3 (150-450) 08/08/18 12:41 MPV 10.9 fl (8-11.3) 08/08/18 12:41 Immature Gran % (Auto) 0.40 % (0.001-0.429) 08/08/18 12:41 Immature Gran # (Auto) 0.02 K/mm3 (0.000-0.0310) 08/08/18 12:41 Neutrophils % 74.8 % (42-75.0) 08/08/18 12:41 Lymphocytes % 9.9 % (20-51) L 08/08/18 12:41 Monocytes % 14.5 % (0.0-9) H 08/08/18 12:41 Eosinophils % 0.0 % (0.0-3.0) 08/08/18 12:41 Basophils % 0.4 % (0.0-1.0) 08/08/18 12:41 Nucleated RBC % 0.0 k/mm3 (0-1) 08/08/18 12:41 Neutrophils # 3.7 K/mm3 (1.3-6.0) 08/08/18 12:41 Lymphocytes # 0.49 k/mm3 (1.5-3.5) L 08/08/18 12:41 Monocytes # 0.7 k/mm3 (0.0-1.0) 08/08/18 12:41 Eosinophils # 0.0 k/mm3 (0.0-0.7) 08/08/18 12:41 Absolute Basophils 0.0 k/mm3 (0.0-0.1) 08/08/18 12:41 pCO2 89.9 mmHg (35.0-48.0) H* 08/08/18 14:43 pO2 52.1 mmHg (83.0-108.0) L 08/08/18 14:43 HCO3 37.5 mmol/L (21.0-28.0) H 08/08/18 14:43 Total CO2 40.2 mmol/L (19.0-24.0) H 08/08/18 14:43 Base Excess 5.8 mmol/L (-2.0-3.0) H 08/08/18 14:43 ABG pH 7.24 (7.35-7.45) L 08/08/18 14:43 ABG O2 Sat (Measured) 78.6 % (94.0-98.0) L 08/08/18 14:43 Sodium 140 mmol/L (132-142) 08/08/18 12:41 Plasma Sodium 140 mmol/L (130-142) 08/08/18 12:41 Potassium 4.5 mmol/L (3.4-4.6) 08/08/18 12:41 Chloride 96 mmol/L (97-106) L 08/08/18 12:41 Carbon Dioxide 39.0 mmol/L (24-32.6) H 08/08/18 12:41 Anion Gap 9.5 mmol/L (6.8-13.8) 08/08/18 12:41 BUN 21 mg/dL (6-23) D 08/08/18 12:41 Creatinine 0.96 mg/dL (0.4-1.4) 08/08/18 12:41 Est GFR (Non-Af Amer) 83 mL/min (60-130) 08/08/18 12:41 BUN/Creatinine Ratio 21.9 (9.0-21.6) H 08/08/18 12:41 Random Glucose 102 mg/dL (70-110) 08/08/18 12:41 Calcium 9.2 mg/dL (7.9-10.9) 08/08/18 12:41 Calcium Adj for Albumin 9.3 mg/dL (8.4-10.2) 08/08/18 12:41 Total Bilirubin 0.3 mg/dL (0.0-1.1) 08/08/18 12:41 AST 28 U/L (0-48) 08/08/18 12:41 ALT 29 U/L (19-67) 08/08/18 12:41 Alkaline Phosphatase 56 U/L (50-170) 08/08/18 12:41 Troponin I 0.027 ng/mL (0.00-0.10) 08/08/18 12:41 B-Natriuretic Peptide 319 pg/mL (5-350) 08/08/18 12:41 Total Protein 7.1 gm/dL (6.2-8.2) 08/08/18 12:41 Albumin 3.5 gm/dl (3.4-5.0) 08/08/18 12:41 Assessment/Plan - Narrative Narrative: Attempting to stabilize his respiratory status at this time. Attempting to transfer patient to [place] and awaiting confirmation from their hospitalist. I've given 2 mg of morphine and 20 mg of Lasix IV push. At this time his vital signs show him still to Get the same 48-52 range with tachycardia 114 and blood pressure 144/85. - Assessment/Plan (1) Acute respiratory acidosis Problem: Acute (2) Respiratory failure Problem: Acute (3) COPD with exacerbation Problem: Acute
[2018-08-08] MEDS ORDERED: NORMAL SALINE 1,000 ML IV PRN ×2 (15:30→16:50)
--- NOTE | 2018-08-08 15:31 | DS ---
Transfer Discharge Summary - Diagnosis(s)/Problems (1) Respiratory failure Problem: Acute (2) Acute respiratory acidosis Problem: Acute (3) COPD with exacerbation Problem: Acute - Course Description of Stay: Mr. Salas is only been admitted a short time and because of his blood gas appearance and not improving over time he will have to be intubated. Will arrange transfer for him to [facility] or some other tertiary care facility. Procedures Performed: see notes below Procedures: Rapid sequence intubation 2. Brito catheter placement - Results and Findings Results and Findings: Laboratory Results - last 24 hr 08/08/18 08/08/18 08/08/18 12:41 12:41 14:43 WBC 5.0 RBC 5.82 Hgb 17.0 Hct 56.6 H MCV 97.3 MCH 29.2 MCHC 30.0 L RDW 13.3 Plt Count 164 MPV 10.9 Immature Gran % (Auto) 0.40 Immature Gran # (Auto) 0.02 Neutrophils % 74.8 Lymphocytes % 9.9 L Monocytes % 14.5 H Eosinophils % 0.0 Basophils % 0.4 Nucleated RBC % 0.0 Neutrophils # 3.7 Lymphocytes # 0.49 L Monocytes # 0.7 Eosinophils # 0.0 Absolute Basophils 0.0 pCO2 89.9 H* pO2 52.1 L HCO3 37.5 H Total CO2 40.2 H Base Excess 5.8 H ABG pH 7.24 L ABG O2 Sat (Measured) 78.6 L Sodium 140 Plasma Sodium 140 Potassium 4.5 Chloride 96 L Carbon Dioxide 39.0 H Anion Gap 9.5 BUN 21 D Creatinine 0.96 Est GFR (Non-Af Amer) 83 BUN/Creatinine Ratio 21.9 H Random Glucose 102 Calcium 9.2 Calcium Adj for Albumin 9.3 Total Bilirubin 0.3 AST 28 ALT 29 Alkaline Phosphatase 56 Troponin I 0.027 B-Natriuretic Peptide 319 Total Protein 7.1 Albumin 3.5 - Medications Medications: Active Medications Discontinued Medications Albuterol Sulfate (Albuterol Sulfate 2.5 Mg/0.5ml) 5 mg IH ONCE ONE Stop: 08/08/18 12:34 Last Admin: 08/08/18 12:55 Dose: 5 mg Documented by: Furosemide (Lasix) 20 mg IV ONCE ONE Stop: 08/08/18 14:31 Last Admin: 08/08/18 14:59 Dose: 20 mg Documented by: Levofloxacin (Levaquin) 500 mg PO ONCE ONE; Protocol Stop: 08/08/18 12:34 Last Admin: 08/08/18 12:55 Dose: 500 mg Documented by: Lorazepam (Ativan) 1 mg IV ONCE ONE Stop: 08/08/18 13:43 Last Admin: 08/08/18 13:47 Dose: 1 mg Documented by: Methylprednisolone Sodium Succinate (Solu-Medrol) 125 mg IV ONCE ONE Stop: 08/08/18 12:34 Last Admin: 08/08/18 12:57 Dose: 125 mg Documented by: Morphine Sulfate (Morphine Sulfate) 2 mg IV ONCE ONE Stop: 08/08/18 14:30 Last Admin: 08/08/18 14:58 Dose: 2 mg Documented by: Ondansetron HCl (Zofran) 4 mg IV ONCE ONE Stop: 08/08/18 13:06 Last Admin: 08/08/18 13:09 Dose: 4 mg Documented by: - Disposition Disposition: Home self-care Condition: Fair Discharge Date: 08/08/18 Discharge Time: 16:35
[2018-08-08] MEDS ORDERED: LORazepam 2 MG/ML DISP.SYRIN ONE (15:54)
--- NOTE | 2018-08-08 16:07 | PN ---
[facility] Note - Interim Date: 08/08/18 Time: 16:05 Narrative: 08/08/18 16:05 I was notified by the admitting physician, Dr. Olmos. Apparently the patient was doing better initially on BiPAP but is started to deteriorate. He is tachypneic and becoming quite sleepy. Repeat blood gas shows an acidosis with pH of 7.2 and a PCO2 of 90. The decision was made to intubate the patient. I went over to the ICU along with the nurse practitioner Yu Duarte and we performed intubation. Patient was administered 20 mg of etomidate and 100 mg of succinylcholine. All equipment was available including the kaleidoscope. Ms. Duarte attempted to intubate the trachea with a 4 MAC blade. Good visualization of the cords but unable to pass the ET tube through. Patient desaturated to 70%. Was bagged back up. Second attempt was made with the glottiscope. Again difficulty passing through the tube as it seemed to get hung up on the cords even though the cords were easily visualized. I took over at that time and was able to get the ET tube through the cords. Bilateral breath sounds. Saturations increased to 100%. No sounds over the epigastrium. X-ray was ordered. Patient is being sedated with propofol. Hemodynamically stable at this time. It is my understanding that Dr. Olmos is going to transfer the patient
[2018-08-08] MEDS ORDERED: SUCCINYLCHOLINE CHLORIDE 20 MG/ML VIAL IV ONE (16:15)
[2018-08-08] MEDS ORDERED: ETOMIDATE 2 MG/ML VIAL IV ONE (16:16)
[2018-08-08] MEDS ORDERED: PROPOFOL 1,000 MG/100 ML PIGGYBACK IV PRN (16:16)
[2018-08-08] MEDS ORDERED: MONTELUKAST SODIUM 10 MG TABLET PO SCH (17:00)
[2018-08-08 18:44] VITALS: BP 66/43
[2018-08-08] MEDS ORDERED: BUDESONIDE 0.5 MG/2 ML VIAL.NEB IH SCH (19:00)
[2018-08-08] MEDS ORDERED: FORMOTEROL FUMARATE 20 MCG/2 ML VIAL IH SCH (19:00)
[2018-08-08] MEDS ORDERED: GLYCOPYRROLATE Inhalation SCH (21:00)
[2018-08-08] MEDS ORDERED: CARVEDILOL 25 MG TABLET PO SCH (21:00)
[2018-08-08] MEDS ORDERED: [UNRECOGNIZED DRUG - OTHER] Inhalation SCH (21:00)
[2018-08-09] MEDS ORDERED: LOSARTAN POTASSIUM 50 MG TABLET PO SCH (09:00)
[2018-08-09] MEDS ORDERED: CLOPIDOGREL BISULFATE 75 MG TABLET PO SCH (09:00)
[2018-08-09] MEDS ORDERED: AZITHROMYCIN 250 MG TABLET PO SCH (09:00)
[2018-08-09] MEDS ORDERED: predniSONE 20 MG TABLET PO SCH (09:00)
== END 2018-08-08 17:30 | disposition short-term general hospital (02) | DRG 208 ==
LOC: ER 12:25 → MS 13:39 → SCU 15:22
PROVIDERS: ADMIT Family Medicine; ATTEND Family Medicine
CPT/HCPCS: 36415; 36600; 71010; 71045; 80053; 82803; 83519; 83880; 84484; 85025; 87040; 93005; 94002; 94003; 94640; 94660; 94664; 96374; 96375; 99285; J2405